=== PATIENT | female | born 1950 | race Caucasian/White ===

== ENCOUNTER → 2020-01-15 14:15 | Outpatient (CLI) | payer MEDICARE, OTHER, SELFPAY ==
--- NOTE | 2020-01-16 10:16 | PC.NURSE ---
Notified patient of positive covid results
== END ==
PROVIDERS: Visit Provider Nurse Practitioner Family
DX: Z20.828 Contact with and (suspected) exposure to other viral communicable diseases (principal); U07.1 COVID-19
CPT/HCPCS: U0003

== ENCOUNTER 2025-03-04 12:00 | Outpatient (CLI) | payer MEDICARE, SELFPAY ==
--- OUTSIDE RECORDS SUMMARY | 2024-08-05 04:20 | XMS_ITS ---
Author Organization [facility] e Address [address] [place] [address] Care Team Providers Care Crab Fisher Name Role Phone Amando Carlson Primary Care Provider Rex Urban Unavailable [phone] REASON FOR VISIT JORDON C7-T1 (Stop Xarelto x3 days) Encounters Encounter Location Date Provider Diagnosis [facility] [address] [place] [address] 08/05/2024 Rex Herbert Plan Of Treatment No Information Progress Notes * Emily WHITMAN MDOB: 1950 (74 yo F)Acc No.[id number]:08/05/2024 Procedure Note Patient: David riveraraffy Emily Osuna Provider: Jason Herbert M.D. :1950 A ge:73 Y S ex:Female Date:08/05/2024 Address:[address] [id number] Pcp:CHRIS Boyce Subjective: * Chief Complaints: * C BESS C7-T1 (Stop Xarelto x3 days) * Electronic signature of Zack Herbert MD on 03/16/2025 at 08:25 AM PST Sign off status: Pending * Provider: Jason Herbert M.D. Date: 0 08/05/2024 Generated for Kalen zambrano/Marilynn/Jose Manuel on: 1 08:25 AM PST
--- OUTSIDE RECORDS SUMMARY | 2024-12-15 19:00 | XMS_ITS | Continuity of Care Document ---
Author Organization [facility] Address [address] [place] [address] Phone Care Team Providers Care Leather Colorer Name Role Phone Shruthi Vishal Unavailable Unavailable Allergies, Adverse Reactions, Alerts Substance Reaction Status Criticality cephalexin itchingitching Active No Informatio n amoxicillin itchingitching Active No Informatio n shellfish derived itchingitching Active No Infor mation Medications Medication Instructions Dosage Effective Dates (start - stop) Status Comments Xarelto 2.5 mg tablet take 1 tablet by oral route 2 times every day 2.5 MG - Active sertraline 50 mg tablet take 1 tablet by oral route every day 50 MG - Active Synthroid 200 mcg tablet take 1 tablet by oral route every day 200 MCG - Active valsartan 320 mg tablet take 1 tablet by oral route every day 320 MG - Active zonisamide 100 mg capsule take 1 capsule by oral route 4 times every day 100 MG - Active Procedures Procedure Date [facility] MGMT STAFF [facility] C[facility] MGMT STAFF EA ADDL EP Compre Exam W Or Withou Ref REFRACTION [facility] CARE MGMT STAFF [facility] CARE MGMT STAFF [facility] MGMT STAFF EA ADDL REFRACTION Ophth Serv: Med Exam; Comp Est Feb-26-20 25 Refraction EP Compre Exam W Or Withou Ref 23 EP Compre Exam W Or Withou Ref 22 Ep Intermediate Exam EP Exam Level 2 Refraction Post Operative P O Visit Refraction Post Operative P O Visit P O Visit Cat/ Ex With Phaco With IOL Femto With Astig Toric [facility] Refraction Post Operative P O Visit P O Visit Cat/ Ex With Phaco With IOL Femto With Astig Toric [facility] Biometry Preop Paperwork Surgical PrePay [facility] Biometry Corneal Topography Preop Paperwork 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 [address], [place], [id number] , [place]. tel:[phone] Referring Provider: Vishal MARADIAGA, [address], [place], [address] . tel:[phone] [facility] , [address], [place], [id number], [place] tel:[phone] [facility] [place] No Information 5 Shruthi Bass. [address], [place] , [place], [id number] , [place]. tel: [phone] Referring Provider: Vishal MARADIAGA, [address], [place], [address] . tel:[phone] [facility] STAFF 1ST 30 [facility] , [address], [place], [place], [address], [place] tel:[phone] [facility] [place] No Information 5 Shruthi SKELTON Vishal. [address], [place] , [place], [id number] , [place]. tel: [phone] Referring Provider: Vishal MARADIAGA, [address], [place], [address] . tel:[phone] [facility] STAFF 1ST 30 [facility] , [address], [place], [place], [id number], [place] tel:[phone] [facility] [place] No Information 5 Shruthi Bass. [address], [place] , [place], [id number] , [place]. tel: [phone] Referring Provider: Vishal MARADIAGA, [address], [place], [address] . tel:[phone] [facility] , [address], [place], [place], [address], [place] tel:[phone] [facility] [place] No Information 5 Ellenkyree DO RodriguezVishal. [address], [place] , [place], [id number] , [place]. tel: [phone] Referring Provider: Vishal MARADIAGA, [address], [facility], [address] . tel:[phone] [facility] , [address], [place], [place], [id number], [place] tel:[phone] [facility] [place] floaters (chief complaint) Vitreous degeneration, bilateralOther corneal scars and opacities 3 Shruthi Bass. [address], [place] , [place], [id number] , [place]. tel:[phone] Referring Provider: Zaina Bess MD, [address], [place], [address] . tel:[phone] [facility] , [address], [facility] [place], [id number], [place] tel:[phone] [facility] h/o PVD OU (chief complaint) Vitreous degeneration, bilateralOther corneal scars and opacities 2 Shruthi Bass. [address], [place] , [place], [id number] , [place]. tel:[phone] Referring Provider: Vishal MARADIAGA, [address], [place], [address] . tel:[phone] [facility] , [address], [place], [place], [address], [place] tel:[phone] [facility] [place] Office redness and pain (chief complaint) Subconjunctival hemorrhage of left eyeVitreous degeneration, bilateralOther corneal scars and opacities 2 Shruthi Bass. [address], [place] , [place], [id number] , [place]. tel:[phone] Referring Provider: Vishal MARADIAGA, [address], [place], [place], [address] . tel:[phone] EP Exam Level 2 [facility] , [address], [place], [place], [id number], [place] tel:[phone] [facility] [place] Office small bump (chief complaint) Chalazion right lower eyelidVitreous degeneration, bilateral 1 Gassen OD Vidal. [address], [place] , [place], [id number] , [place]. tel:[phone] Referring Provider: Williancharlie Arikstacey OD, [address], [place], [place], [address] . tel:[phone] [facility] , [address], [place], [id number], [place] tel:[phone] [facility] [place] [facility] Post-Op (chief complaint) Presence of intraocular lensOther corneal scars and opacitiesVitreous degeneration, bilateral 1 Shruthi Bass. [address], [place] , [place], [id number] , [place]. tel:[phone] Referring Provider: Vishal MARADIAGA, [address], [place], [place], [address] . tel:[phone] sulting Provider: Vishal MARADIAGA, [address], [place], [place], [address] . tel:[phone] [facility] , [address], [place], [place], [id number], [place] tel:[phone] [facility] [place] [facility] CEIOL OD 07/27/20 (chief complaint) Presence of intraocular lens 1 Shruthi Bass. [address], [place], [id number] , [place]. tel:[phone] Referring Provider: Vishal MARADIAGA, [address], [place], [address] . tel:[phone] sulting Provider: Vishal MARADIAGA, [address], [place], [address] . tel:[phone] [facility] , [address], [place], [place], [address], [place] tel:[phone] [facility] [place] [facility] 1 day post op (chief complaint) Presence of intraocular lens 1 Shruthi Bass. [address], [place] , [place], [address] , [place]. tel:[phone] Referring Provider: Vishal MARADIAGA, [address], [place], [address] . tel:[phone] sulting Provider: Vishal MARADIAGA, [address], [place], [address] . tel:[phone] [facility] , [address], [place], [id number], [place] tel:[phone] [facility] [place] [facility] No Information 1 Shruthi Bass. [address], [place], [id number] , [place]. tel:[phone] Referring Provider: Vishal MARADIAGA, [address], [place], [address] . tel:[phone] sulting Provider: Vishal MARADIAGA, [address], [place], [address] . tel:[phone] [facility] , [address], [place], [place], [address], [place] tel:[phone] [facility] [place] No Information 1 Shruthi Bass. [address], [place] , [place], [address] , [place]. tel:[phone] Referring Provider: Vishal MARADIAGA, [address], [place], [address] . tel:[phone] [facility] , [address], [place], [place], [address], [place] tel:[phone] [facility] [place] [facility] 1 week PO (chief complaint) decreased vision (chief complaint) Presence of intraocular lensCombined forms of age-related cataract, right eye 1 Shruthi Bass. [address], [place], [id number] , [place]. tel:[phone] Referring Provider: Vishal MARADIAGA, [address], [place], [address] . [phone] sulting Provider: Vishal MARADIAGA, [address], [place], [address] . [phone] [facility] , [address], [place], [id number], [place] tel:[phone] [facility] [place] [facility] S/P CE W/ IOL (chief complaint) Presence of intraocular lens 1 Shruthi Bass. [address], [place], [id number] , [place]. tel:[phone] Referring Provider: Vishal MARADIAGA, [address], [place], [address] . tel: [phone] sulting Provider: Vishal MARADIAGA, [address], [place], [address] . [phone] [facility] , [address], [place], [place], [address], [place] tel:[phone] [facility] No Information 1 Shruthi Bass. [address], [place] , [place], [address] , [place]. tel: [phone] Referring Provider: Vishal MARADIAGA, [address], [place], [address] . tel: [phone] sulting Provider: Vishal MARADIAGA, [address], [place], [address] . [phone] [facility] , [address], [place], [place], [address], [place] tel:[phone] [facility] No Information 1 Shruthi Bass. [address], [place] , [place], [address] , [place]. tel: [phone] Referring Provider: Vishal MARADIAGA, [address], [place], [address] . tel:[phone] [facility] , [address], [place], [place], [address], [place] tel:[phone] [facility] [place] [facility] No Information 1 Shruthi Bass. [address], [place] , [place], [id number] , [place]. tel: [phone] Referring Provider: Vishal Neibaur DO W, [address], [place], [place], [address] . tel:[phone] [facility] , [address], [place], [place], [address], [place] tel:[phone] [facility] No Information 1 Shruthi Bass. [address], [place], [id number] , [place]. tel:[phone] Referring Provider: Vishal MARADIAGA, [address], [place], [address] . tel:[phone] [facility] , [address], [place], [place], [address], [place] tel:[phone] [facility] Office Combined forms of age-related cataract, bilateral May- 1 Shruthi Bass. [address], [place], [id number] , [place]. tel:[phone] Referring Provider: Vishal MARADIAGA, [address], [place], [address] . tel:[phone] [facility] , [address], [place], [id number], [place] tel:[phone] [facility] Office decreased vision (chief complaint) Combined forms of age-related cataract, bilateralVitreous degeneration, bilateralOther corneal scars and opacities May-0 1 Shruthi Bass. [address], [place], [id number] , [place]. tel:[phone] Referring Provider: Fidel Mattson OD [place], [address], [place], [address] . tel:[phone] Family History Family Member Type Diagnosis Age At Onset No Information Payers Payer name Insurance type Covered alliance party ID Frantz corral(s) [employer] Medicare MB [id number] Social History Type Description Quantity Date Captured Comments Sex Female Smoking Status No Information Chief Complaint And Reason For Visit No Information Reason For Referral Reason For Referral No Information Plan Of Treatment Date Type Action Status Goal Tobacco cessation counseling completed Appointment Emily Jeffrey BOOKED Appointment Emily Jeffrey BOOKED Patient Education Learning About Vitreous Detachment completed Patient Education Subconjunctiva l Hemorrhage: Care Instructions completed Patient Education Styes and Chal gloria: Care Instructions completed Patient Education Cataract Surge ry: Before Your Surgery completed Future Order: Radiology Order IO L Master ([id number]), Collected on: , Sent on: Sent History Of Present Illness Encounter Date Complaint History Of Prese nt Illness floaters The 72 year old patient presents for evaluation of floaters in the right eye and left eye. Started 4 months ago. Constant. C/o black dots at float around visual field. Denies any flashes, curtains or cobwebs. h/o PVD OU The 71 year old female presents for h/o PVD OU. Patient has noticed an increase in floaters (unsure which eye). Patient denies flashing lights. Denies curtain/veil effect. VA doing well for the most part. redness and pain The 70 year old female presents for evaluation of redness and pain in the left eye. Reports waking up with a red, bloodshot eye. Notes intermittent pain and stinging. No changes to vision. Onset was sudden, does not recall anything that might have caused it. No treatment attempted. small bump The patient has noticed small red bump RLL present since Sunday. The bump has drastically increased in size. It is overall painful, worsens when blinking. The bump is also in the way of vision in the right eye. The patient has tried warm compresses, NI. Has never had any bumps on lids prior. Not using any lubrication gtts or edmundo. Post-Op The 69 year old female presents for Post-Op in the right eye. 07/27/2020 S/P CE w/ IOL OD. VA OD improved since surgery. No drops. CEIOL OD 07/27/20 The 69 year ol d female presents for CEIOL OD 07/27/20; OS 07/13/20. Presents with improvement. Using Bromsite qd and Lotemax tid OU 1 day post op The 69 year old female presents for 1 day post op of CEIOL OD 07/27/20. Denies any pain or discomfort. Reports feeling and seeing something in temporal corner OD. Feels like thick fluid. Using Bromsite Qd, Ofloxacin and Prednisolone TID. Notes needing sample or alternative to Bromsite due to ins not covering refill til August 27. 1 week PO The 69 year old female presents for 1 week PO. S/P CE w/IOL OS 07/13/2020. Patient states no discomfort or pain; vision is good OS. Instilling Bromsite qd and Prednisolone tid os. decreased vision The patient is present for decreased vision in the right eye, constant, moderate, difficulty reading books, road signs, and tv. S/P CE W/ IOL The 69 year old female presents for evaluation of S/P CE W/ IOL in the left eye 07/13/20. Presents with some improvement in the vision. no pain, does feel discomfort. Using Bromsite qd, Ofloxacin tid, and Prednisolone tid OS. decreased vision The 69 year old female presents for evaluation of decreased vision in the right eye and left eye. It started about 3 month(s) ago. Presents with some blurry vision, making it difficult to see street signs when driving. Has to squint and focus to see better. Vision continues to gradually worsen. Functional Status Date Functional Assessmen t No Information Instructions Date Instruction Additional Infor yeni Return in [address] Hawkins for Refract/Dilate Related to Vitreous degeneration, bilateral Impression/Plan Related to Other corneal scars and opacities Impression/Plan Related to Vitre ous degeneration, bilateral Return in [address] Hawkins for Refract/Dilate Related to Vitreous degeneration, bilateral Impression/Plan Related to Other corneal scars and opacities Impression/Plan Related to Vitre ous degeneration, bilateral Return in August with Dr. Hawkins for Refract/Dilate Related to Vitreous degeneration, bilateral Impression/Plan Related to Other corneal scars and opacities Impression/Plan Related to Vitre ous degeneration, bilateral Impression/Plan Related to Subco njunctival hemorrhage of left eye RTC [address] Tawny leyva for refract/dilate Related to Vitreous degeneration, bilateral Impression/Plan Related to Vitre ous degeneration, bilateral Impression/Plan Related to Chala antonella right lower eyelid Return in [address] Hawkins for Refract/Dilate Related to Vitreous degeneration, bilateral Impression/Plan Related to Prese nce of intraocular lens Impression/Plan Related to Other corneal scars and opacities Impression/Plan Related to Vitre ous degeneration, bilateral Return in 3-[address] Hawkins for Post Op Refract No Dilate Related to Presence of intraocular lens Impression/Plan Related to Prese nce of intraocular lens Return in 1 week wit tayla Hawkins for Post Op Refract/Dilate. Related to Presence of intraocular lens Impression/Plan Related to Prese nce of intraocular lens Return for Surgery - Schedule Cataract Extraction with IOL [id number] OD with Vishal Hawkins DO Related to Combined forms of age-related cataract, right eye Impression/Plan Related to Combi fanny forms of age-related cataract, right eye Impression/Plan Related to Prese nce of intraocular lens Return in 1 week wit tayla Hawkins for Post Op Refract/Dilate. Related to Presence of intraocular lens Impression/Plan Related to Prese nce of intraocular lens - Schedule Cataract Extraction with IOL [id number] OU with Vishal Hawkins DO DO Related to Combined forms of age-related cataract, bilateral Impression/Plan Related to Other corneal scars and opacities Impression/Plan Related to Vitre ous degeneration, bilateral Impression/Plan Related to Combi fanny forms of age-related cataract, bilateral Assessments Type Assessment Date No Information Patient Care Teams Name Effective Dates (start - stop) Status Members No Information
--- OUTSIDE RECORDS SUMMARY | 2025-02-03 05:10 | XMS_ITS ---
Author Organization [facility] Address [address] [place] [address] Care Team Providers Care Poultry Offal Icer Name Role Phone Amando Carlson Primary Care Provider Rex Urban Unavailable [phone] Allergies Allergen (clinical drug ingredient) Drug/Non Drug Allergy documented on EMR Reaction Allergy Type Onset Date Status amoxicillin amoxicillin ReportDt: Severity:Mild Drug Allergy Active cephalexin cephalexin ReportDt: Severity:Mild Drug Allergy Active Shellfish (FN) Shellfish-derived Products Unknown Drug Allergy Active REASON FOR VISIT RFA RT HIP ABN, Hip ABN RFA, Hip Pain Medications Medication SIG (Take, Route, Frequency, Duration) Notes Start Date End Date Status Diclofenac Sodium 1 % Gel 1 application Externally Twice a day; Duration: 30 days apply 2-4grams externally Q6hrs for 30 days 12/10/2024 Active Lidocaine 5 % Patch 1-2 patches as needed Externally Once a day; Duration: 30 days 01/06/2025 Active Celecoxib 200 MG Capsule 1 capsule with food Orally Once a day; Duration: 90 days Active Lidocaine 5 % Patch 1 patch as needed Externally Once a day; Duration: 30 days 12/10/2024 Active Voltaren 1 % Gel as directed Externally twice a day; Duration: 30 days Please dispense 1 tube per month. TY 12/10/2024 Active Xarelto 2.5 MG Tablet 1 tablet Orally Twice a day; Duration: 30 day(s) 08/10/2023 Active Temazepam 15 MG Capsule TAKE 1 CAPSULE BY MOUTH EVERYDAY AT BEDTIME Oral; Duration: 30 Days Active Celecoxib 200 MG Capsule 1 capsule with food Orally Once a day; Duration: 90 days 07/23/2025 Active Lidocaine 5 % Patch Apply 1-3 patches TAA and remove after 12 hours Externally Once a day as needed; Duration: 30 days 08/10/2023 Active Zonisamide 100 MG Capsule TAKE 4 CAPSULES ONCE DAILY.; Duration: 90 Active Famotidine 40 MG Tablet Oral; Duration: 90 Days Active Ezetimibe 10 MG Tablet Oral; Duration: 90 Days Active Valsartan 320 MG Tablet Oral; Duration: 90 Days Active Chlorthalidone 25 MG Tablet Oral; Duration: 90 Days Active Atorvastatin Calcium 40 MG Tablet Oral; Duration: 90 Days Active Levothyroxine Sodium 50 MCG Tablet Oral; Duration: 90 Days Active traZODone HCl 50 MG Tablet TAKE 1 TABLET BY MOUTH EVERYDAY AT BEDTIME Oral; Duration: 90 Days Active Pantoprazole Sodium 40 MG Tablet Delayed Release 1 tablet Orally Once a day; Duration: 30 day(s) Active Social History Tobacco Use: Social History Observation Description Date Details (start date - stop date) Former Smoker NA - NA Social History Drugs/Alcohol: Social Info Question Answer Notes Drugs Have you used drugs other than those for medical reasons in the past 12 months? No Household: Social Info Question Answer Notes Household Marital status: Psychosocial/Psychological Social Info Question Answer Notes Work: Are you currently working? No Drug/Alcohol: Social Info Question Answer Notes AUDIT-C (Standard) Did you have a drink containing alcohol in the past year? No Points 0 Interpretation Negative Tobacco Use: Social Info Question Answer Notes Tobacco Control (Standard) Tobacco use: Former smoker How long has it been since you last smoked? Greater than 10 years Additional Findings: Tobacco non-user Current no nsmoker Tobacco use other than smoking: Are you an other tobacco user? No Additional Details Category Social Info Options Details Miscellaneous: Marital status: , w idowed Drugs/Alcohol: Do you smoke marijuana? De nies Do you drink alcohol? No Psychosocial/Psychological Live with: S pouse Do you take care of other family members (parent s, children): No Vital Signs Temperature 97.3 degrees Fahrenheit 02/04/20 25 Blood pressure systolic 104 mm Hg 02/04/20 25 Blood pressure diastolic 84 mm Hg 025 Respiratory Rate 16 /min 02/03/2025 Height 64 in 02/03/2025 Weight 225 lbs 02/03/2025 BMI 38.62 kg/m2 02/03/2025 Oximetry 90 % 02/03/2025 Encounters Encounter Location Date Provider Diagnosis [facility] [address] [place], [place] [address] 02/03/2025 Rex Herbert Spondylosis without myelopathy or radiculopathy, lumbar region M47.816 ; Primary osteoarthritis of right hip M16.11 ; Bilateral primary osteoarthritis of knee M17.0 ; Spondylosis without myelopathy or radiculopathy, cervical region M47.812 ; Unilateral primary osteoarthritis, right knee M17.11 ; Primary osteoarthritis of left knee M17.12 ; Cervical radiculopathy M54.12 ; Other muscle spasm M62.838 ; Muscle spasm of back M62.830 ; Left knee pain, unspecified chronicity M25.562 ; Spondylosis of lumbar region without myelopathy or radiculopathy M47.816 ; Radiculopathy, lumbar region M54.16 ; Primary osteoarthritis of left hip M16.12 ; Morbid (severe) obesity due to excess calories E66.01 ; Primary osteoarthritis, 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 ; Pain in right shoulder M25.511 ; Sacroiliitis, not elsewhere classified M46.1 ; Spinal stenosis, cervical region M48.02 ; Other intervertebral disc degeneration, lumbar region M51.36 ; Cervicalgia M54.2 ; Neuralgia and neuritis, unspecified M79.2 ; Pelvic and perineal pain R10.2 ; Left hip pain M25.552 ; Trochanteric bursitis, left hip M70.62 ; Spondylosis without myelopathy or radiculopathy, lumbosacral region M47.817 ; Right hip pain M25.551 ; 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 ; Thoracic spine pain M54.6 ; Primary osteoarthritis of right knee M17.11 ; Other buttermaker helper (current) drug therapy Z79.899 ; Anticoagulant long-term use Z79.01 and Pain in right knee M25.561 Assessments Encounter Date Diagnosis (ICD Code) Assessment Notes Treatment Notes Treatment Clinical Notes Section Notes 02/03/2025 Spondylosis without myelopathy or radiculopathy, lumbar region (ICD-10 - M47.816) 02/03/2025 Primary osteoarthritis of right hip (ICD-10 - M16.11) 02/03/2025 Bilateral primary osteoarthritis of knee (ICD-10 - M17.0) 02/03/2025 Spondylosis without myelopathy or radiculopathy, 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) 02/03/2025 Unilateral primary osteoarthritis, right knee (ICD-10 - M17.11) 02/03/2025 Primary osteoarthritis of left knee (ICD-10 - M17.12) 02/03/2025 Cervical radiculopathy (ICD-10 - M54.12) 02/03/2025 Other muscle spasm (ICD-10 - M62.838) 02/03/2025 Muscle spasm of back (ICD-10 - M62.830) 02/03/2025 Left knee pain, unspecified chronicity (ICD-10 - M25.562) 02/03/2025 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) 02/03/2025 Radiculopathy, lumbar region (ICD-10 - M54.16) 02/03/2025 Primary osteoarthritis of left hip (ICD-10 - M16.12) 02/03/2025 Morbid (severe) obesity due to excess calories (ICD-10 - E66.01) 02/03/2025 Primary osteoarthritis, 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) 02/03/2025 Pain in right shoulder (ICD-10 - M25.511) 02/03/2025 Sacroiliitis, not elsewhere classified (ICD-10 - M46.1) 02/03/2025 Spinal stenosis, cervical region (ICD-10 - M48.02) 02/03/2025 Other intervertebral disc degeneration, 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) 02/03/2025 Cervicalgia (ICD-10 - M54.2) 02/03/2025 Neuralgia and neuritis, unspecified (ICD-10 - M79.2) 02/03/2025 Pelvic and perineal pain (ICD-10 - R10.2) 02/03/2025 Left hip pain (ICD-10 - M25.552) 02/03/2025 Trochanteric bursitis, left hip (ICD-10 - M70.62) 02/03/2025 Spondylosis without myelopathy or radiculopathy, 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) 02/03/2025 Right hip pain (ICD-10 - M25.551) 02/03/2025 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) 02/03/2025 Thoracic spine pain (ICD-10 - M54.6) 02/03/2025 Primary osteoarthritis of right knee (ICD-10 - M17.11) 02/03/2025 Other senior care (current) drug therapy (ICD-10 - Z79.899) 02/03/2025 Anticoagulant long-term use (ICD-10 - Z79.01) Xarelto 02/03/2025 Pain in right knee (ICD-10 - M25.561) Plan Of Treatment No Information Procedure Notes * Category Sub-Category Detail Notes Procedure Pre Consent: Yes Pain Level VAS: 8 Last Meal (Date/Time): 02/02/2025 5 PM Last Pain Medication (Date/Time): 2024 NONE Diabetes: No Blood Thinner: No Test (40 years & younger): No Manager Financial Reporting: Yes Name: Cora ANESTHESIOLOGIST Anesthesia Provider: BOBBY The anesthesia provider was present during the entire case and administered intravenous medications and monitored the patients vitals.: . LOCATION Location: [facility] PROCEDURES Somatic Procedures: RFA RFA: Hip ABN RFA (FN/ON) Hip ABN RFA (FN/ON): FN First Position, FN Second Position Lateral, ON First Position, ON Second Position Lateral, Post Procedure, Side The risks and benefits of the procedure, and alternatives were discussed with the patient. The patient was agreeable to proceed. After informed consent, the patient was brought to the procedure suite and placed in the supine position. The hip and groin were prepped and draped in the usual sterile fashion. Under fluoroscopy guidance, the Femoral Head and the Acetabulum were identified. Using a curved Radiofrequency needle described below, with a 10 mm active tip, the Femoral Nerve Articular Branches were contacted on the Lateral Acetabulum superior to the hip joint's anterolateral border. After negative aspiration, the contrast was injected to confirm the needle position. Sensory stimulation was carried out at 50 Hz with the reproduction of the stated painful area, followed by motor stimulation at 2 Hz with increasing voltage to 4V. There was stimulation of the muscles in the hip region; however, there was no stimulation of the lower extremity. At this point, 1 cc of a solution described below was injected. After 30 seconds, the denervation was carried out under the lesion mode with lesioning at 90 seconds and a temperature of 85 degrees centigrade with the impedance of less than 250 Ohms.: . The needle was slightly withdrawn and redirected at a position more lateral to the original position. After negative aspiration, the contrast was injected to confirm the needle position. Sensory stimulation was carried out at 50 Hz with the reproduction of the stated painful area, followed by motor stimulation at 2 Hz with increasing voltage to 4V. There was stimulation of the muscles in the hip region; however, there was no stimulation of the lower extremity. At this point, 1 cc of a solution described below was injected. After 30 seconds, the denervation was carried out under the lesion mode with lesioning at 90 seconds and a temperature of 85 degrees centigrade with the impedance of less than 250 Ohms.: . The inferior junction of the Ischium-Pubis was identified under fluoroscopy guidance. Using a curved Radiofrequency needle described below, with a 10 mm active tip, the Obturator Nerve Articular Branches were contacted just inferior to the Ischium-Pubis junction. After negative aspiration, the contrast was injected to confirm the needle position. Sensory stimulation was carried out at 50 Hz with the reproduction of the stated painful area, followed by motor stimulation at 2 Hz with increasing voltage to 4V. There was stimulation of the muscles in the hip region; however, there was no stimulation of the lower extremity. At this point, 1 cc of a solution described below was injected. After 30 seconds, the denervation was carried out under the lesion mode with lesioning at 90 seconds and a temperature of 85 degrees centigrade with the impedance of less than 250 Ohms.: . The needle was slightly withdrawn and redirected at a position more lateral to the original position. After negative aspiration, the contrast was injected to confirm the needle position. Sensory stimulation was carried out at 50 Hz with the reproduction of the stated painful area, followed by motor stimulation at 2 Hz with increasing voltage to 4V. There was stimulation of the muscles in the hip region; however, there was no stimulation of the lower extremity. At this point, 1 cc of a solution described below was injected. After 30 seconds, the denervation was carried out under the lesion mode with lesioning at 90 seconds and a temperature of 85 degrees centigrade with the impedance of less than 250 Ohms.: . After completion of the lesion mode, the needle was removed. The sites were cleaned, and Band-Aids were placed. The patient tolerated the procedure well. There were no complications. The vitals were stable throughout.: . Side: Right TIME OUT TAKEN AND SITE VERIFIED 10:04 MEDICATIONS Versed (mg): 5 Fentanyl (mcg): 150 CONTRAST Ominpaque 240 (cc): 2 INJECTATE Bupivacaine 0.5% w/ Epi 1:200K ( cc): 9.5 STEROIDS Dexamethasone (mg): 15 TOTAL VOLUME Total Volume (cc): 12 NEEDLE Needle: 18G 100 mm RF 10 mm Acti ve Tip FLUOROSCOPY TIME Fluoroscopy Time: 0:48 Number of Images: 8 COMPLICATIONS Complications: None DISCHARGE (AVRIL SCORE) Respiration: Able to t frances Deep Breaths (2) Oxygen Saturation: >92% on Room Air (2) Consciousness: Fully Awake (2) Circulation: 20% of Pre-Anesthetic Level (2) Muscle Activity: Moves 4 Extremities (2) TOTAL AVRIL SCORE: 10 MA Initials (Discharge Instructions/Pain Log): MD ARMENDARIZ Initials (IV Removed): Time Out Procedure Protocol Verification by Surgeon & by: Verified by: Rex Gilman M.D., Josefina Vivas Dispersion/Grounding Pad Dispersion Pad: Site Location, Status of Site Site Location: Right Side Right Side: Mid Back Status of Site: Unremarkable History and Physical Notes * HPI (History of Present Illness) Category Sub-Category Detail Notes Category Not es PAIN MANAGEMENT Follow up plan documented Follow -up Plan documented:: Yes Progress Notes * Emily WHITMAN MDOB: 1950 (74 yo F)Acc No.[id number]:02/03/2025 Progress Notes Patient: David Emily fletcher Provider: Jason Herbert M.D. :1950 A ge:74 Y S ex:Female Date:02/03/2025 Address:[address] [place], [id number] Pcp:CHRIS Boyce Subjective: * Chief Complaints: * R FA RT HIP ABNHip ABN RFAHip Pain * HPI: P AIN MANAGEMENT: Follow up plan documented F ollow-up Plan documented: Y es * Surgical History: hysterectomy gallbladder removed open heart surgery tonsillectomy trigger finger release bilateral carpal tunnel release Surgical History verified. * Hospitalization/Major Diagno stic Procedure: RFA BL L2-L4 REPORTING 80-90% RELIEF X 6 MONTHS 04/2018 RFA RT C4-C6 WITH 80-90% RELIEF X 10 MONTHS 03/2018 RFA LT C4-C6 WITH 80%-90% RELIEF X 10 MONTHS 03/2018 RFA LT C4-C6 WITH 60% relief and increased adls x 2 years 02/2019 TFESI BL C5-C6, (C6-C7) , 70% ONGOING RELIEF 04/19 TFESI BL C5-C6.C6-C7 75% ongoing relief 03.17.20 RFA RT L3-L5 REPORTING 70-80% X 7 MONTHS 10/2018 RFA RT L3-L5 reporting 70% X 11 MONTHS AND INCREASED ADLS 04.21. RFA LT L3-L5 70% RELIEF X 6 MONTHS 09. RFA LT L3-L5 70% relief x 6 months and increased ADL's. 05.12.20 RIGHT HIP INJECTION 50% ongoing relief 07.10.20 RT HIP INJECTION 80% ONGOING RELIEF 07.28.20 RFA RT C4-C6 40% PAIN RELIEF AND INCREASED ADLS X 7 MONTHS 09.04.20 INTRA ARTICULAR JOIINT INJECTION 50-60% X 2 MONTHS AND IMPROVED ADLS 10.05.20 JORDON (C7-T1) reporting 80% ongoing relief and increased adls 02/2020 RFA LT L3-L5 70% relief and increased relief x 6 months 01.05. LT HIP INJECTION 70% ONGOING RELIEF AND INCREASED ADLS 04/2020 RFA RT L3-L5 70% relief and increased adls x 6 months 03.09.21 STEROID RT HIP 75% ongoing relief and increased adls 04.20.21 RFA RT C4-C6 60% ongoing relief and increased adls 05.07.21 RFA LT C4-C6 70% ongoing relief and increased adls 6.22.21 RFA LT L3-L5 80% ongoing relief and increased adls 09.21.21 RFA RT L3-L5 60% ongoing relief and increased adls 10.19.21 TFESI BL L4-L5, L5-S1 75% ongoing relief and increased 12.28.21 RFA LT C4-C6; 70% ongoing relief with increased ADL's 02.15.22 RFA RT C4-C6; 60% ongoing relief with increased ADL's 03.15.22 JORDON C7-T1 04.12.22 RIGHT HIP STEROID INJECTION - 60% relief ongoing with increased ADLs 05.10.22 RFA BL L3-L5 with increased ADLs x3 weeks, now 0% 6.03.22 TFESI BL L4-L5, L5-S1 75% relief with increased ADL's 07.26.22 JORDON C7-T1 60% relief x2 weeks now 0% 9.22.22 RFA BL C4-C6 75% relief ongoing with increased ADL's 10.25.22 RFA BL L3-L5 - 70% relief ongoing, increased ADLs 01.24.23 RT HIP INJECTION - 60% relief ongoing, increased ADLs 02.14.23 LT Knee Injection; 50% x 2 weeks relief from pain with increased ADLs 3.22.23 RFA BL C4-C6 with 70% pain relief with increased ADLs 05.05.23 JORDON C7-T1 with 80% relief 08.08.23 RT HIP INJECTION 75% on going relief and increased ADLs 09.15.23 LT Knee Injection with 50% relief and increased ADLs 10.11.23 RFA BL C4-C6 70% pain relief for two months WITH INCREASED ADLS 01.09.24 RFA BL L3-L5 70% ongoing pain relief with increased ADL's 03.05.24 Hyalgan #1 BL knee 04.04.24 Hyalgan #2 BL knee 04.10.24 Hyalgan #3 BL knee 04.18.24 Hyalgan #4 BL knee 04.23.24 Hyalgan #5 BL knee- 75% improvement of pain in right knee, 50% improvement in left knee 04.30.24? JORDON C7-T1 70% ongoing pain relief with increased ADL's 05.17.2023 RT HIP INJECTION 80% PAIN RELIEF FOR 3 DAYS WITH INCREASED ADL's 06.11.24 RFA BL C4-C6 70% ongoing pain relief with increased ADL's 08. RT HIP ABNB 80% pain relief with increased ADL's x2 days .. RFA ABN HIP RT 80% ongoing pain relief with increased ADL's 12.. RFA BL L3-L5 80% ongoing pain relief with increased ADLs 04.18. JORDON C7-T1 with 75% ongoing pain relief with increased ADL's 08.01.2024 RFA BL L3-5 70% ongoing pain relief with increased ADL's 10.07.24 RFA RT HIP ABN 02.03.25 Hospitalization Verified. * Social History: T obacco Use: T obacco use other than smoking A re you an other tobacco user? N o Tobacco Control (Standard) T obacco use: F ormer smoker H ow long has it been since you last smoked??Greater than 10 years A dditional Findings: Tobacco non-user C urrent nonsmoker D rugs/Alcohol: D rugs H ave you used drugs other than those for medical reasons in the past 12 months? N o Do you smoke marijuana?: Denies. Do you drink alcohol?: No. P sychosocial/Psychological: L conrado with: Spouse. Do you take care of other family members (parents, children): No. Work A re you currently working? N o M iscellaneous: M arital status: , . H ousehold: H ousehold M arital status: m arried D rug/Alcohol: A LEODAN-C (Standard) D id you have a drink containing alcohol in the past year? N o P oints 0 I nterpretation N egative S ocial History Verified. * Medications: T akingPantoprazole Sodium 40 MG Tablet Delayed Release 1 tablet Orally Once a day Levothyroxine Sodium 50 MCG Tablet Oral traZODone HCl 50 MG Tablet TAKE 1 TABLET BY MOUTH EVERYDAY AT BEDTIME Oral Chlorthalidone 25 MG Tablet Oral Atorvastatin Calcium 40 MG Tablet Oral Ezetimibe 10 MG Tablet Oral Valsartan 320 MG Tablet Oral Famotidine 40 MG Tablet Oral Temazepam 15 MG Capsule TAKE 1 CAPSULE BY MOUTH EVERYDAY AT BEDTIME Oral Xarelto 2.5 MG Tablet 1 tablet Orally Twice a day Lidocaine 5 % Patch Apply 1-3 patches TAA and remove after 12 hours Externally Once a day as needed Zonisamide 100 MG Capsule TAKE 4 CAPSULES ONCE DAILY. Celecoxib 200 MG Capsule 1 capsule with food Orally Once a day , stop date 07/23/2025Diclofenac Sodium 1 % Gel 1 application Externally Twice a day , Notes to Pharmacist: apply 2-4grams externally Q6hrs for 30 daysLidocaine 5 % Patch 1 patch as needed Externally Once a day Voltaren 1 % Gel as directed Externally twice a day , Notes to Pharmacist: Please dispense 1 tube per month. TYLidocaine 5 % Patch 1-2 patches as needed Externally Once a day Celecoxib 200 MG Capsule 1 capsule with food Orally Once a day Medication List reviewed and reconciled with the patientTaking Pantoprazole Sodium 40 MG Tablet Delayed Release 1 tablet Orally Once a day Taking Levothyroxine Sodium 50 MCG Tablet Oral Taking traZODone HCl 50 MG Tablet TAKE 1 TABLET BY MOUTH EVERYDAY AT BEDTIME Oral Taking Chlorthalidone 25 MG Tablet Oral Taking Atorvastatin Calcium 40 MG Tablet Oral Taking Ezetimibe 10 MG Tablet Oral Taking Valsartan 320 MG Tablet Oral Taking Famotidine 40 MG Tablet Oral Taking Temazepam 15 MG Capsule TAKE 1 CAPSULE BY MOUTH EVERYDAY AT BEDTIME Oral Taking Xarelto 2.5 MG Tablet 1 tablet Orally Twice a day Taking Lidocaine 5 % Patch Apply 1-3 patches TAA and remove after 12 hours Externally Once a day as needed Taking Zonisamide 100 MG Capsule TAKE 4 CAPSULES ONCE DAILY. Taking Celecoxib 200 MG Capsule 1 capsule with food Orally Once a day , stop date 07/23/2025Taking Diclofenac Sodium 1 % Gel 1 application Externally Twice a day , Notes to Pharmacist: apply 2-4grams externally Q6hrs for 30 daysTaking Lidocaine 5 % Patch 1 patch as needed Externally Once a day Taking Voltaren 1 % Gel as directed Externally twice a day , Notes to Pharmacist: Please dispense 1 tube per month. TYTaking Lidocaine 5 % Patch 1-2 patches as needed Externally Once a day Taking Celecoxib 200 MG Capsule 1 capsule with food Orally Once a day Medication List reviewed and reconciled with the patient * Allergies: a moxicillin: ReportDt:01/27/2016 Severity:Mildcephalexin: ReportDt:01/27/2016 Severity:MildShellfish-derived ProductsyesAllergies Verified. Objective: * Vitals: B P: 147/55 mm Hg,104/84mm Hg, RR: 16 /min,16/min, Temp: 97.1 F,97.3F, Pulse: 81, 71, Oxygen sat %: 96 %,90%, Pain scale:81-10, Pain Scale Discharge:51-10, Ht: 64 in, Wt:225lbs, BMI:38.62Index. Assessment: * Assessment: 1. P rimary osteoarthritis of right hip - M16.11 (Primary) 2 . S pondylosis without myelopathy or radiculopathy, lumbar region - M47.816 3 . B ilateral primary osteoarthritis of knee - M17.0 4 . S pondylosis without myelopathy or radiculopathy, cervical region - M47.812 5 . U nilateral primary osteoarthritis, right knee - M17.11 6 . P rimary osteoarthritis of left knee - M17.12 ?7. C ervical radiculopathy - M54.12 8 . O ther muscle spasm - M62.838 9. M uscle spasm of back - M62.830 1 0. L eft knee pain, unspecified chronicity - M25.562 1 1. S pondylosis of lumbar region without myelopathy or radiculopathy - M47.816 1 2. R adiculopathy, lumbar region - M54.16 & #160; 1 3. P rimary osteoarthritis of left hip - M16.12 1 4. M orbid (severe) obesity due to excess calories - E66.01 1 5. P rimary osteoarthritis, right shoulder - M19.011 1 6. P ain in right shoulder - M25.511 1 7. Sacroiliitis, not elsewhere classified - M46.1 1 8. S jane stenosis, cervical region - M48.02 1 9. O ther intervertebral disc degeneration, lumbar region - M51.36 2 0. C ervicalgia - M54.2 2 1. N euralgia and neuritis, unspecified - M79.2 2 2. P elvic and perineal pain - R10.2 2 3. L eft hip pain - M25.552 2 4. T rochanteric bursitis, left hip - M70.62? 25. S pondylosis without myelopathy or radiculopathy, lumbosacral region - M47.817 2 6. R ight hip pain - M25.551 2 7. S pondylosis of thoracic region without myelopathy or radiculopathy - M47.814 2 8. T horacic spine pain - M54.6 2 9. P rimary osteoarthritis of right knee - M17.11 30. O ther buttermaker helper (current) drug therapy - Z79.899 3 1. A nticoagulant long-term use - Z79.01 N otes :Xarelto 3 2. P ain in right knee - M25.561 Plan: * Procedures: P rocedure: Pre C onsent Y es P ain Level VAS 8 L ast Meal (Date/Time) 1 04/04/2024 5 PM L ast Pain Medication (Date/Time) 1 04/04/2024 NONE D iabetes N o B lood Thinner N o P regnancy Test (40 years & younger) N o D river Y es N aranza A hea ANESTHESIOLOGIST A nesthesia Provider M AC T he anesthesia provider was present during the entire case and administered intravenous medications and monitored the patients vitals. . LOCATION L ocation P [facility] [place] PROCEDURES S omatic Procedures R FA R FA H ip ABN RFA (FN/ON) H ip ABN RFA (FN/ON) F N First Position, FN Second Position Lateral, ON First Position, ON Second Position Lateral, Post Procedure, Side T he risks and benefits of the procedure, and alternatives were discussed with the patient. The patient was agreeable to proceed. After informed consent, the patient was brought to the procedure suite and placed in the supine position. The hip and groin were prepped and draped in the usual sterile fashion. Under fluoroscopy guidance, the Femoral Head and the Acetabulum were identified. Using a curved Radiofrequency needle described below, with a 10 mm active tip, the Femoral Nerve Articular Branches were contacted on the Lateral Acetabulum superior to the hip joint's anterolateral border. After negative aspiration, the contrast was injected to confirm the needle position. Sensory stimulation was carried out at 50 Hz with the reproduction of the stated painful area, followed by motor stimulation at 2 Hz with increasing voltage to 4V. There was stimulation of the muscles in the hip region; however, there was no stimulation of the lower extremity. At this point, 1 cc of a solution described below was injected. After 30 seconds, the denervation was carried out under the lesion mode with lesioning at 90 seconds and a temperature of 85 degrees centigrade with the impedance of less than 250 Ohms. . T he needle was slightly withdrawn and redirected at a position more lateral to the original position. After negative aspiration, the contrast was injected to confirm the needle position. Sensory stimulation was carried out at 50 Hz with the reproduction of the stated painful area, followed by motor stimulation at 2 Hz with increasing voltage to 4V. There was stimulation of the muscles in the hip region; however, there was no stimulation of the lower extremity. At this point, 1 cc of a solution described below was injected. After 30 seconds, the denervation was carried out under the lesion mode with lesioning at 90 seconds and a temperature of 85 degrees centigrade with the impedance of less than 250 Ohms. . T he inferior junction of the Ischium-Pubis was identified under fluoroscopy guidance. Using a curved Radiofrequency needle described below, with a 10 mm active tip, the Obturator Nerve Articular Branches were contacted just inferior to the Ischium- Pubis junction. After negative aspiration, the contrast was injected to confirm the needle position. Sensory stimulation was carried out at 50 Hz with the reproduction of the stated painful area, followed by motor stimulation at 2 Hz with increasing voltage to 4V. There was stimulation of the muscles in the hip region; however, there was no stimulation of the lower extremity. At this point, 1 cc of a solution described below was injected. After 30 seconds, the denervation was carried out under the lesion mode with lesioning at 90 seconds and a temperature of 85 degrees centigrade with the impedance of less than 250 Ohms. . T he needle was slightly withdrawn and redirected at a position more lateral to the original position. After negative aspiration, the contrast was injected to confirm the needle position. Sensory stimulation was carried out at 50 Hz with the reproduction of the stated painful area, followed by motor stimulation at 2 Hz with increasing voltage to 4V. There was stimulation of the muscles in the hip region; however, there was no stimulation of the lower extremity. At this point, 1 cc of a solution described below was injected. After 30 seconds, the denervation was carried out under the lesion mode with lesioning at 90 seconds and a temperature of 85 degrees centigrade with the impedance of less than 250 Ohms. . A fter completion of the lesion mode, the needle was removed. The sites were cleaned, and Band-Aids were placed. The patient tolerated the procedure well. There were no complications. The vitals were stable throughout. . S bernadette R ight TIME OUT TAKEN AND SITE VERIFIED 1 0:04. MEDICATIONS V ersed (mg) 5 F entanyl (mcg) 1 50 CONTRAST O minpaque 240 (cc) 2 INJECTATE B upivacaine 0.5% w/ Epi 1:200K (cc) 9 .5 STEROIDS D examethasone (mg) 1 5 TOTAL VOLUME T otal Volume (cc) 1 2 NEEDLE N eedle 1 8G 100 mm RF 10 mm Active Tip FLUOROSCOPY TIME F luoroscopy Time 0 :48 N umber of Images 8 COMPLICATIONS C omplications N one DISCHARGE (AVRIL SCORE) R espiration A ble to take Deep Breaths (2) O xygen Saturation > 92% on Room Air (2) C onsciousness F ully Awake (2) C irculation 2 0% of Pre-Anesthetic Level (2) M uscle Activity M oves 4 Extremities (2) T OTAL AVRIL SCORE 1 0 M A Initials (Discharge Instructions/Pain Log)?MD Enrrique Awad Initials (IV Removed) M D Time Out Procedure Protocol Verification by Surgeon & by: V erified by Rex Juárez M.D., Josefina Vivas Dispersion/Grounding Pad D ispersion Pad S ite Location, Status of Site S ite Location R ight Side R ight Side M id Back S tatus of Site U nremarkable * Procedure Codes: 6 4640 INJECTION TREATMENT OF NERVE, Modifiers: [place] [address] INJECTION TREATMENT OF NERVE, Modifiers: 51 , [id number] Dexamethasone 1 mg, Units: 15.00 J2250 Versed 1 mg, Units: 5.00 J3010 Injection, fentanyl Citrate, 0.1 mg, Units: 2.00 Q9967 LOCM 300- 399MG/ML IODINE,1ML * Preventive Medicine: Counseling: B P Management: REFERRAL TO ALTERNATIVE / PRIMARY CARE PROVIDER: R eferral to general practitioner C are goal follow-up plan: Above Normal BMI Follow-up D ietary management education, guidance, and counseling, Exercise promotion: stretching, Giving encouragement to exercise Billing Information: * Procedure Codes: 45960 INJECTION TREATMENT OF NERVE. Modifiers: [place] [address] INJECTION TREATMENT OF NERVE. Modifiers: 51, RT J1100 Dexamethasone 1 mg. Units: 15.00. J2250 Versed 1 mg. Units: 5.00. J3010 Injection, fentanyl Citrate, 0.1 mg. Units: 2.00. Q9967 LOCM 300-399MG/ML IODINE,1ML. * Sign off status: Completed true * Provider: Jason Herbert M.D. Date: 04/05/2024 Generated for Kalen zambrano/Marilynn/Jose Manuel on: 08:25 AM PST
--- OUTSIDE RECORDS SUMMARY | 2025-02-17 13:20 | XMS_ITS ---
Author Organization [employer] e Address [address] [place] [address] Care Team Providers Care Housing Management Representative Name Role Phone Amando Carlson Primary Care Provider Unavaila Rex Denson Unavailable [phone] Christel Vargas Unavailable [phone] Allergies Allergen (clinical drug ingredient) Drug/Non Drug Allergy documented on EMR Reaction Allergy Type Onset Date Status amoxicillin amoxicillin ReportDt: 016 Severity:Mild Drug Allergy Active cephalexin cephalexin ReportDt: 016 Severity:Mild Drug Allergy Active Shellfish (FN) Shellfish-derived Products Unknown Drug Allergy Active REASON FOR VISIT Neck Pain, Low Back, Right Hip Pain Medications Medication SIG (Take, Route, Frequency, Duration) Notes Start Date End Date Status Lidocaine 5 % Patch 1 patch as needed Externally Once a day; Duration: 30 days 12/10/2024 Active Diclofenac Sodium 1 % Gel 1 application Externally Twice a day; Duration: 30 days apply 2-4grams externally Q6hrs for 30 days 12/10/2024 Active Celecoxib 200 MG Capsule 1 capsule with food Orally Once a day; Duration: 90 days 07/23/2025 Active Lidocaine 5 % Patch Apply 1-3 patches TAA and remove after 12 hours Externally Once a day as needed; Duration: 30 days 08/10/2023 Active Xarelto 2.5 MG Tablet 1 tablet Orally Twice a day; Duration: 30 day(s) 08/10/2023 Active Atorvastatin Calcium 40 MG Tablet Oral; Duration: 90 Days Active Valsartan 320 MG Tablet Oral; Duration: 90 Days Active Ezetimibe 10 MG Tablet Oral; Duration: 90 Days Active Temazepam 15 MG Capsule TAKE 1 CAPSULE BY MOUTH EVERYDAY AT BEDTIME Oral; Duration: 30 Days Active Famotidine 40 MG Tablet Oral; Duration: 90 Days Active Chlorthalidone 25 MG Tablet Oral; Duration: 90 Days Active Levothyroxine Sodium 50 MCG Tablet Oral; Duration: 90 Days Active Pantoprazole Sodium 40 MG Tablet Delayed Release 1 tablet Orally Once a day; Duration: 30 day(s) Active traZODone HCl 50 MG Tablet TAKE 1 TABLET BY MOUTH EVERYDAY AT BEDTIME Oral; Duration: 90 Days Active Lidocaine 5 % Patch 1-2 patches as needed Externally Once a day; Duration: 30 days 02/11/2025 Active Voltaren 1 % Gel as directed Externally twice a day; Duration: 30 days Please dispense 1 tube per month. TY 12/10/2024 Active Celecoxib 200 MG Capsule 1 capsule with food Orally Once a day; Duration: 90 days Active Zonisamide 100 MG Capsule TAKE 4 CAPSULES ONCE DAILY Orally daily; Duration: 30 days 02/17/2025 06/17/2025 Active Social History Tobacco Use: Social History Observation Description Date Details (start date - stop date) Former Smoker 02/22/2005 - 02/25/2015 Social History Drugs/Alcohol: Social Info Question Answer [...] Tobacco Control (Standard) Tobacco use: Former smoker When did you start smoking? 02/22/2005 When did you stop smoking? 02/25/2015 How long has it been since you last smoked? Greater than 10 years Additional Findings: Tobacco non-user Ex-moderat e cigarette smoker (10-19/day) Tobacco use other than smoking: Are you an other tobacco user? No Additional Details Category Social Info Options Details Miscellaneous: Marital status: , w idowed Drugs/Alcohol: Do you smoke marijuana? De nies Do you drink alcohol? No Psychosocial/Psychological Live with: S pouse Do you take care of other family members (parent s, children): No Vital Signs Temperature 97.4 degrees Fahrenheit 02/18/20 25 Blood pressure systolic 134 mm Hg 02/18/20 25 Blood pressure diastolic 67 mm Hg 025 Respiratory Rate 16 /min 02/17/2025 Height 64 in 02/17/2025 Weight 224 lbs 02/17/2025 BMI 38.45 kg/m2 02/17/2025 Oximetry 94 % 02/17/2025 Encounters Encounter Location Date Provider Diagnosis [facility] [address] [place] [address] 02/17/2025 Christel Vargas Spondylosis without myelopathy or radiculopathy, lumbar region [...] osteoarthritis of right knee M17.11 ; Other terminal 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 The patient underwent RFA RT HIP ABN with 70% ongoing pain relief with increased ADL's done on 02.03.25. Today, the patient reports increased low back pain and describes the pain as persistent, rating it 7 out of 10, with episodes reaching 9out of 10 over the past few days, significantly affecting his daily comfort. We discussed performing an RFA BL L3-L5. Symptoms are interfering with ADLs, ROM, and the sleep cycle. The risks and benefits of the procedure were explained to the patient. The patient has agreed to proceed. Overall, the patient is able to reduce chronic pain with the current regimen, Zonisamide 400 mg #30, renewed unchanged. The patient is stable on the current regimen and tolerates medications without adverse effects. The patient will continue with routine follow-up. The patient voiced understanding. The patient was encouraged to stay active within pain limitations. The patient is not currently receiving opioid therapy. 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) 02/17/2025 Unilateral primary osteoarthritis, right knee (ICD-10 - M17.11) 02/17/2025 Primary osteoarthritis of left knee (ICD-10 - M17.12) 02/17/2025 Cervical radiculopathy (ICD-10 - M54.12) 02/17/2025 Other muscle spasm (ICD-10 - M62.838) 02/17/2025 Muscle spasm of back (ICD-10 - M62.830) 02/17/2025 Left knee pain, unspecified chronicity (ICD-10 - M25.562) 02/17/2025 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) 02/17/2025 Radiculopathy, lumbar region (ICD-10 - M54.16) 02/17/2025 Primary osteoarthritis of left hip (ICD-10 - M16.12) 02/17/2025 Morbid (severe) obesity due to excess calories (ICD-10 - E66.01) 02/17/2025 Primary osteoarthritis, 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) 02/17/2025 Pain in right shoulder (ICD-10 - M25.511) 02/17/2025 Sacroiliitis, not elsewhere classified (ICD-10 - M46.1) 02/17/2025 Spinal stenosis, cervical region (ICD-10 - M48.02) 02/17/2025 Other intervertebral disc degeneration, 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) 02/17/2025 Cervicalgia (ICD-10 - M54.2) 02/17/2025 Neuralgia and neuritis, unspecified (ICD-10 - M79.2) 02/17/2025 Pelvic and perineal pain (ICD-10 - R10.2) 02/17/2025 Left hip pain (ICD-10 - M25.552) 02/17/2025 Trochanteric bursitis, left hip (ICD-10 - M70.62) 02/17/2025 Spondylosis without myelopathy or radiculopathy, 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) 02/17/2025 Right hip pain (ICD-10 - M25.551) 02/17/2025 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 02/17/2025 Other alf (current) drug therapy (ICD-10 - Z79.899) 02/17/2025 Anticoagulant long-term use (ICD-10 - Z79.01) Xarelto 02/17/2025 Pain in right knee (ICD-10 - M25.561) 02/17/2025 Other The Control Substance Report (PMPR) was reviewed. Medication benefits, potential risks, and side effects were discussed in detail. Physical Activity: The patient was encouraged to stay active. Home Exercise: The patient is to continue a home exercise regimen. Opioid Side Effects: The patient was warned of side effects from opioid use including but not limited to nausea, constipation, drowsiness, dry mouth which can lead to tooth loss, and possible addiction. The patient should not operate heavy equipment or a motor vehicle. The patient should not mix alcohol or other drugs with opioids as these side effects will be enhanced. Plan Of Treatment Medication Medication Name Sig Start Date Stop Date Notes Lidocaine 5 % Patch 1-2 patches as neede d Externally Once a day; Duration: 30 days 02/11/2025 Zonisamide 100 MG Capsule TAKE 4 CAPSULE S ONCE DAILY Orally daily; Duration: 30 days 02/17/2025 06/17/2025 Treatment Notes Assessment Notes Spondylosis without myelopat hy or radiculopathy, lumbar region The patient RTC for a follow-up visit for ongoing low back pain, BL hip pain. The patient underwent RFA RT HIP ABN with 70% ongoing pain relief with increased ADL's done on 02.03.25. Today, the patient reports increased low back pain and describes the pain as persistent, rating it 7 out of 10, with episodes reaching 9out of 10 over the past few days, significantly affecting his daily comfort. We discussed performing an RFA BL L3-L5. Symptoms are interfering with ADLs, ROM, and the sleep cycle. The risks and benefits of the procedure were explained to the patient. The patient has agreed to proceed. Overall, the patient is able to reduce chronic pain with the current regimen, Zonisamide 400 mg #30, renewed unchanged. The patient is stable on the current regimen and tolerates medications without adverse effects. The patient will continue with routine follow-up. The patient voiced understanding. The patient was encouraged to stay active within pain limitations. The patient is not currently receiving opioid therapy. Other The Control Substance Report (PMPR) was reviewed. Medication benefits, potential risks, and side effects were discussed in detail. Physical Activity: The patient was encouraged to stay active. Home Exercise: The patient is to continue a home exercise regimen. Opioid Side Effects: The patient was warned of side effects from opioid use including but not limited to nausea, constipation, drowsiness, dry mouth which can lead to tooth loss, and possible addiction. The patient should not operate heavy equipment or a motor vehicle. The patient should not mix alcohol or other drugs with opioids as these side effects will be enhanced. Future Test Test Name Order Date RFA Lumbar 02/17/2025 Next Appt Details Follow Up: 2 Weeks, Reason: RFA BL L3-L5 History and Physical Notes * HPI (History of Present Illness) Category Sub-Category Detail Notes Category Not es Pain History The patient is compl aining of pain located in the low back, left hip, neck pain The pain began Onset: 2011 Under what circumstances did the pain begin? Acc ident at work: No Accident at home: No Following surgery: No At work. but not an accident: No Auto accident: No Following an illness: No Is the patient in litigation because of the pain or injury? no Expectations from the pain clinic [facility] pain relief Pain intensity Assessment Value: 7 Describes the usual level of pain Patient states :: Distressing/ Severe Description Describe your pain at its worst: 8 Describe your pain at its least: 6 Describe your pain on the average: 0 Quaility of Pain Characteristics of pain prickin g, gnawing, throbbing, sharp/ stabbing Aggravating factors other, walking, lift ing, bending Relieving factors medication, rest Lifestyle changes How much did pain in terfere with the following activities? 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 Psychological Support: NA Surgery: NA Nerve Blocks: Yes TENS/MENS: NA Physical Therapy: NA Occupational Therapy: NA Biofeedback/Relaxation Therapy: NA Medical History Have you ever had an y of the following medical conditions? General: None HEENT: None Cardiovascular: Hypertension Respiratory: Cough GI: None Blood: None : None Endocrine: None Infections: None Neuropsychiatry: None Musculoskeletal: Rheumatoid Arthiritis, Osteoarthiritis, Osteoporosis Neoplastic: None Psychosocial/Psychological Residence Status Do you live al one?: Yes How many steps do you have to climb?: 0 Do you take care of other family members (ie parents, children)?: No Do you have Caps, false teeth, or contac t lenses? No Are you currently working? No Tobacco/Drug/Alcohol Use Do you intake tobacco?: No Recreational drug use?: No Alcohol use?: No PAIN MANAGEMENT Follow up plan documented Follow-up Plan documented:: Yes Diagnostic Imaging Results CT Cervical Spine 06/04/2023 [facility] Findings: This exam is degraded by motion and attenuation artifact the inferior aspect of the cervical spine continuing into the drainage upper portion of the thoracic spine. There are no fractures or dislocations. The cervical spine is normal in alignment and curvature. There is moderate multilevel disc height loss from C3-4 through C7-Tl, accompanied by multilevel spondylotic changes through the cervical spinc. There is posterior disc osteophyte complex formation at multiple levels, including C4-5 and C5-6 where there is yphl-uh-yizjibes spinal canal stenosis, and at C6-7 where there is moderate spinal canal stenosis. There is multilevel uncovertebral and facet joint hypertrophy of the cervical spius resulting in moderate bilateral neural foraminal stenosis at C3-4, moderate right and mild left neural foraminal stenosis at C4-5, modcrate right and mild to moderate left noural foraminal stenosis at C5-6, and moderate right neural foraminal stenosis at C6-7. There is grossly normal mineralization. There are no osseous lytic or sclerotic lesions. There are normal paraspinal soft tissues. IMPRESSION: No acute osseous abnormality of the corvical spine. fultilevel degenerative changes of the cervical spine, with posterior disc osteophyte complexes al multiple levels resulting in whey-cr-qlkaelpt spinal canal stenosis al C4-5 and CS-6 and moderate spinal canal stenosis at C6-7. Multilevel neural foraminal stenosis as detailed above due to uncovertebral/facet joint hypertrophy. Examination Category Sub-Category Detail Notes Category Not es Thoracic Spine/Upper Back UPPER BACK EXAM: There is normal curvature of the thoracic spine. Full flexion, extension and lateral bending are noted. The spinous process are nontender to palpation and percussion. The paraspinal muscles are without tenderness, increased tone or appreciable trigger point Lumbar Spine/Lower back LOWER BACK: . The pa tient has tenderness along the lumbar spinous processes (approximately L1-L5) and lumbar paravertebral muscles. The pain is deeper. There is tenderness along the latissimus dorsi muscles and paravertebral muscles. There is bilateral lumbar facet tenderness and positive bilateral lumbar facet loading (approximately bilateral L3-L4 to L5-S1). The patient has a limited range of motion on lumbar spine flexion, extension, right and left lateral tilt secondary to pain. (BL Knee Reflex 1/4). Motor Strength diminished BL LE 4/5 and pain in the lumbar spine with movement.The patient is unable to get on the table secondary to pain. The patient is unable to lie flat on the table secondary to pain. Neurological GAIT AND STATION: slowed, stooped, using cane Right hip PALPATION: pain is deep, po sitive tenderness HIP RANGE OF MOTION: decreased range of motion secondary to pain General Examination GENERAL APPEARANCE: Pain Described as: : Severe Demeanor: calm HEAD: normocephalic , atra umatic EYES: extraocular movement intact (EOMI) EARS: NOSE: THROAT: NECK/THYROID: trachea midline HEART: regular rate and rhy thm CHEST: normal shape and exp ansion LUNGS: clear to auscultatio n bilaterally ABDOMEN: Obese NEUROLOGIC: alert and oriented, cognitive exam normal SKIN: warm and dry EXTREMITIES: no edema PERIPHERAL PULSES: 2+ radial BACK: BREASTS: MUSCULOSKELETAL: decreased range of m otion of left > right knee, crepitus of both knees, left > right medial knee tenderness, decreased range of motion cervical spine, painful range of motion of right hip, painful range of motion of left hip, greater trochanter tenderness of the right hip,, greater trochanter tenderness of the left hip LYMPH NODES: RECTAL: PSYCH: cooperative with exa m , good eye contact , mood/affect full range, speech clear ORAL CAVITY: PODIATRIC: Cervical Spine C SPINE EXAM: Cervical spine s hows straightening of spine, Limited ROM in all directions secondary to pain, Tenderness is noted on C7, Tenderness is noted on BL paracervical, trapezius, and rhomboid muscles with increased tone and palpable trigger points,Cervical facet loading is improved BL since RFA, , Full strength and reflexes of bilateral upper extremities REVIEWED ITEMS DATA REVIEWED Old Charts, PMPR , Previous Procedures, CT Scan Reports Progress Notes * Emily WHITMAN MDOB: 1950 (74 yo F)Acc No.[id number]:02/17/2025 Progress Notes Patient: Emily Maloney Appointment Provider: AMBAR Alejandro :1950 A ge:74 Y S ex:Female Supervising Provider:Aron Wilson M.D. Date:02/17/2025 Address:[address] [facility], [id number] Pcp:Amando Monroe, PAC Subjective: * Chief Complaints: * N zainab PainLow BackRight Hip Pain * HPI: P ain History: The pain began O nset 2 012 The patient is complaining of pain located in the l ow back, left hip, neck pain. Under what circumstances did the pain begin? A ccident at work N o A ccident at home N o F ollowing surgery N o A t work. but not an accident N o A uto accident N o F ollowing an illness N o Is the patient in litigation because of the pain or injury??no . Expectations from the pain clinic M y e xpectations?are pain relief. P ain intensity: Assessment V alue 7 Describes the usual level of pain P atient states: D istressing/ Severe Description D escribe your pain at its worst 8 D escribe your pain at its least 6 D escribe your pain on the average 0 Q uaility of Pain: Characteristics of pain p ricking, gnawing, throbbing, sharp/ stabbing. Aggravating factors o ther, walking, lifting, bending. Relieving factors m edication, rest. L ifestyle changes: How much did pain interfere with the following activities? 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 P sychological Support N A S urgery N A N erve Blocks Y es T ENS/MENS N A P hysical Therapy N A O ccupational Therapy N A B iofeedback/Relaxation Therapy N A P sychosocial/Psychological: Residence Status D o you live alone? Y es H ow many steps do you have to climb? 0 D o you take care of other family members (ie parents, children)? N o Do you have Caps, false teeth, or contact lenses? N o .? Are you currently working? N o . Tobacco/Drug/Alcohol Use D o you intake tobacco? N o R ecreational drug use? N o A lcohol use? N o M edical History: Have you ever had any of the following medical conditions? G eneral N one H EENT N one C ardiovascular H ypertension R espiratory C ough G I N one B lood N one G U N one E ndocrine N one I nfections N one N europsychiatry N one M usculoskeletal R heumatoid Arthiritis, Osteoarthiritis, Osteoporosis N eoplastic N one P AIN MANAGEMENT: Follow up plan documented F ollow-up Plan documented: Y preet D iagnostic Imaging Results: CT Cervical Spine06/04/2023 [facility]ings: This exam is degraded by motion and attenuation artifact the inferior aspect of the cervical spine continuing into the drainage upper portion of the thoracic spine. There are no fractures or dislocations. The cervical spine is normal in alignment and curvature. There is moderate multilevel disc height loss from C3-4 through C7- Tl, accompanied by multilevel spondylotic changes through the cervical spinc. There is posterior disc osteophyte complex formation at multiple levels, including C4-5 and C5-6 where there is ojau-xd-giwuyjsx spinal canal stenosis, and at C6-7 where there is moderate spinal canal stenosis. There is multilevel uncovertebral and facet joint hypertrophy of the cervical spius resulting in moderate bilateral neural foraminal stenosis at C3-4, moderate right and mild left neural foraminal stenosis at C4- 5, modcrate right and mild to moderate left noural foraminal stenosis at C5-6, and moderate right neural foraminal stenosis at C6-7. There is grossly normal mineralization. There are no osseous lytic or sclerotic lesions. There are normal paraspinal soft tissues. IMPRESSION: No acute osseous abnormality of the corvical spine. fultilevel degenerative changes of the cervical spine, with posterior disc osteophyte complexes al multiple levels resulting in wlku-yg-fjphqqbj spinal canal stenosis al C4-5 and CS-6 and moderate spinal canal stenosis at C6-7. Multilevel neural foraminal stenosis as detailed above due to uncovertebral/facet joint hypertrophy. * ROS: G ENERAL/CONSTITUTIONAL: Chills d enies. F atigue d enies. F ever d enies. E YES: Flashes of light in the visual field d enies. ? E NT: Vertigo D enies. D izziness D enies. ? E NDOCRINE: Diabetes d enies. T hyroid problems a dmits. ? R ESPIRATORY: TB exposure D enies. A sthma d enies. B reathing problems d enies. S hortness of breath d enies. S hortness of breath at rest d enies. S hortness of breath with exertion d enies. W heezing d enies. ? C ARDIOVASCULAR: Edema D enies. C hest pain d enies. C laudication d enies. H igh blood pressure d enies. P alpitations d enies. ? G ASTROINTESTINAL: Abdominal pain d enies. C onstipation d enies. D iarrhea d enies. H eartburn d enies. N ausea d enies. V omiting d enies. H EMATOLOGY: Anemia d enies. E asy bruising O n Xarelto. ? G ENITOURINARY: Flank pain D enies. K idney problems d enies. ? M USCULOSKELETAL: Neck Pain a dmits. L imitation of Motion a dmits.?low back pain d enies. m id back pain d enies. c ervical radiculopathy d enies. l umbar radiculopathy d enies. a rthritic joints k nee(s). P ain in hip(s) right hip. P ain in knee(s) b oth knees L>R. A rthritis a dmits. B ack problems d enies. H istory of Gout d enies. J oint stiffness a dmits, in the neck,in the extremities. M uscle aches a dmits. V ASCULAR: Decreased sensation in extremities d enies. P ain/cramping in legs after exertion d enies. S KIN: Hypersensitivity D enies. N EUROLOGICAL: Balance difficulty d enies. C oordination g ood.?Memory loss d enies. S eizures d enies. T ics d enies. T ingling/Numbness?denies. T remor d enies. P SYCHIATRIC: Difficulty sleeping a dmits. S ubstance abuse d enies. S uicidal thoughts d enies. * Medical History: Hypertension Rheumatoid arthritis Osteoporosis Hypothyroid Hyperlipidemia Insomnia GERD CAD Arthritis Chronic pain Medical History Verified * Surgical History: hysterectomy gallbladder removed open [...] 70% X 11 MONTHS AND INCREASED ADLS 04.21.20 RFA LT L3-L5 70% RELIEF X 6 MONTHS 09 RFA LT L3-L5 70% relief x 6 [...] relief and increased relief x 6 months 01.05.21 LT HIP INJECTION 70% ONGOING RELIEF AND [...] BL knee 04.18.24 Hyalgan #4 BL knee 07.10.23 Hyalgan #5 BL knee- 75% improvement of pain in right knee, 50% improvement in left knee 07.17.23? JORDON C7-T1 70% ongoing pain relief with increased ADL's 08.03.2023 RT HIP INJECTION 80% PAIN RELIEF FOR 3 DAYS WITH INCREASED ADL's 06 RFA BL C4-C6 70% ongoing pain relief with increased ADL's 08 RT HIP ABNB 80% pain relief with increased ADL's x2 days 12.28.23 RFA ABN HIP RT 80% ongoing pain relief with increased ADL's 02.19.24 RFA BL L3-L5 80% ongoing pain relief with increased ADLs 04.18.24 JORDON C7-T1 with 75% ongoing pain relief with increased ADL's 08.01.2024 RFA BL L3-5 70% ongoing pain relief with increased ADL's 10.07.24 RFA RT HIP ABN 70% ongoing pain relief with increased ADL's 02.03.25 Hospitalization Verified. * Family History: F ather: , diagnosed with Heart Disease. M other: , diagnosed with Diabetes. S iblings: diagnosed with Diabetes. F amily History Verified.. * Social History: T obacco Use: T obacco use other than smoking A re you an other tobacco user? N o Tobacco Control (Standard) T obacco use: F ormer smoker W hen did you start smoking? 1 04/25/2004 W hen did you stop smoking? 1 04/28/2014 H ow long has it been since you last smoked??Greater than 10 years A dditional Findings: Tobacco non-user E x-moderate cigarette smoker (10-19/day) D rugs/Alcohol: D rugs H ave you used drugs other than those for medical reasons in the past 12 months? N o Do you smoke marijuana?: Denies. Do you drink alcohol?: No. P sychosocial/Psychological: Vasile steene with: Spouse. Do you take care of [...] Severity:MildShellfish-derived ProductsyesAllergies Verified. Objective: * Vitals: B P:134/67mm Hg, RR:16/min, Temp:97.4F, Pulse: 71, Oxygen sat %:94%, Pain scale:71-10, Ht: 64 in, Wt:224lbs, BMI:38.45Index. * Examination: G eneral Examination: GENERAL APPEARANCE: ? Demeanor c ziggy ?HEAD:?normocephalic , atraumatic.?EYES:?extraocular movement intact (EOMI).?NECK/THYROID:?trachea midline.?SKIN:?warm and dry.?HEART:?regular rate and rhythm?.?LUNGS:?clear to auscultation bilaterally.?CHEST:?normal shape and expansion.?ABDOMEN:?Obese.?MUSCULOSKELETAL:?decreased range of motion of left > right knee, crepitus of both knees, left > right medial knee tenderness, decreased range of motion c ervical spine, painful range of motion of right hip, painful range of motion of left hip, greater trochanter tenderness of the right hip,, greater trochanter tenderness of the left hip.?EXTREMITIES:?no edema.?PERIPHERAL PULSES:?2+ radial.?NEUROLOGIC:?alert and oriented, cognitive exam normal. ?PSYCH:?cooperative with exam , good eye contact , mood/affect full range, speech clear.?Neurological: ?GAIT AND STATION:?slowed, stooped, using cane.?Cervical Spine: ?C SPINE EXAM:?Cervical spine shows straightening of spine,Limited ROM in all directions secondary to pain, Tenderness is noted on C7, Tenderness is noted on BL paracervical, trapezius, and rhomboid muscles with increased tone and palpable trigger points,Cervical facet loading is improved BL since RFA, , Full strength and reflexes of bilateral upper extremities.?Thoracic Spine/Upper Back: ?UPPER BACK EXAM:?There is normal curvature of the thoracicspine. Full flexion, extension and lateral bending are noted. The spinous process are nontender to palpation and percussion. The paraspinal muscles are without tenderness, increased tone or appreciable trigger point.?Lumbar Spine/Lower back: ?LOWER BACK:?. The patient has tenderness along the lumbar spinous processes (approximately L1-L5) and lumbar paravertebral muscles. The pain is deeper. There is tenderness along the latissimus dorsi muscles and paravertebral muscles. There is bilateral lumbar facet tenderness and positive bilateral lumbar facet loading (approximately bilateral L3-L4 to L5-S1). The patient has a limited range of motion on lumbar spine flexion, extension, right and left lat eral tilt secondary to pain. (BL Knee Reflex 1/4). Motor Strength diminished BL LE 4/5 and pain in the lumbar spine with movement.The patient is unable to get on the table secondary to pain. The patient is unable to lie flat on the table secondary to pain..?REVIEWED ITEMS: ?DATA REVIEWED?Old Charts, PMPR, Previous Procedures, CT Scan Reports.?Right hip: ?PALPATION:?pain is deep,positive tenderness?.?HIP RANGE OF MOTION:?decreased range of motion secondary to pain.? Assessment: * Assessment: 1. S pondylosis without myelopathy or radiculopathy, lumbar region - M47.816 (Primary) ? 2 . P rimary osteoarthritis of right hip - M16.11 3 . B ilateral primary osteoarthritis of [...] right knee - M17.11 30. 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 A nticoagulant long-term use - Z79.01 N otes :Xarelto 3 2. P ain in right knee - M25.561 Plan: * Treatment: Notes: The patient RTC for a follow-up visit for ongoing low back pain, BL hip pain. The patient underwent? RFA RT HIP ABN with 70% ongoing pain relief with increased ADL's done on?02.03.25. Today, the patient reports increased low back pain and describes the pain as persistent, rating it7 out of 10, with episodes reaching 9out of 10 over the past few days, significantly affecting his daily comfort. We discussed performing an RFA BL L3-L5. Symptoms are interfering with ADLs, ROM, andthe sleep cycle. The risks and benefits of the procedure were explained to the patient. The patienthas agreed to proceed.? Overall, the patient is able to reduce chronic pain with the current regimen, Zonisamide 400 mg #30, renewed unchanged. The patient is stable on the current regimen and tolerates medications without adverse effects. The patient will continue with routine follow-up. The patient voiced understanding.The patient was encouraged to stay active within pain limitations.? The patient is not currently receiving opioid therapy. ?? Clinical Notes:Treatment Plan: -Continue Zonisamide 400 mg #30 -The patient is not currently receiving opioid therapy -RFA BL L3-L5 -Follow up in 2 weeks???2.?Primary osteoarthritis of right hip? Refill Zonisamide Capsule, 100 MG, TAKE 4 CAPSULES ONCE DAILY, Orally, daily, 30 days, 120, Refills3.??3.?Neuralgia and neuritis, unspecified? Refill Lidocaine Patch, 5 %, 1-2 patches as needed, Externally, Once a day, 30 days, 60, Refills 11.??4.?Primary osteoarthritis of right knee? Clinical Notes: XR RT Knee Impression: Marked Degenerative change.??5.?Others? Notes: The Control Substance Report (PMPR) was reviewed. Medication benefits, potential risks, and side effects were discussed in detail. Physical Activity: The patient was encouraged to stay active. Home Exercise: The patient is to continue a home exercise regimen. Opioid Side Effects: The patient was warned of side effects from opioid use including but not limited to nausea, constipation, drowsiness, dry mouth which can lead to tooth loss, and possible addiction. The patient should not operate heavy equipment or a motor vehicle. The patient should not mix alcohol or other drugs with opioids as these side effects will be enhanced.?? * Preventive Medicine: Counseling: C are goal follow-up plan: Above Normal BMI Follow-up D ietary management education, guidance, and counseling, Exercise promotion: stretching, Giving encouragement to exercise Screenings: F ALL RISK SCREENING Screening: O ne fall with injury in the past year Plan of Care: D ocumented Type of fall plan of care: B alance, strength and gait training or instruction provided * Follow Up: 2 Weeks (Reason: RFA BL L3-L5) Billing Information: * Visit Code: 42414 Office Visit, Est Pt., Level 4. * Procedure Codes: Confirmatory sign off:Aron Wilson 02/18/2025 at 01:34 AM PST* Electronically co-signed by Aron Wilson MD on 02/18/2025 at 01:34 AM PST Sign off status: Completed true * Appointment Provider: AMBAR Alejandro Date: 04/20/2024 Generated for Kalen zambrano/Marilynn/Jose Manuel on: 08:25 AM PST
--- OUTSIDE RECORDS SUMMARY | 2025-03-16 11:25 | XMS_ITS | Data Portability ---
Author Organization [facility] IP Address [address] [place] [address] Care Team Providers Care Plumbing Service Technician Name Role Phone SHIRA PEÑA Primary Care Provider Assessment No assessment recorded. Plan of Treatment Reminders Order Date Submit Date Provider Last Modified By Organization Details Last Modified Time Details Appointments FOLLOW UP 2025 08:00A Enrrique Wolfe MD Not available Not available Not available Lab urinalysi s, complete 2024 025 [facility], [address], [place], [address], 02/02/2025 11:27:28 microalbu min/creat inine, mass ratio, urine 2024 025 [facility], [address], [place], [address], 02/02/2025 11:27:27 lipid panel, serum 2024 025 [facility], [address], [place], [address], 02/02/2025 11:27:28 lipoprote in (A), serum 2024 025 [facility], [address], [place], [address], 02/02/2025 11:27:29 CRP, high sensitivi ty, serum or plasma 2024 025 [facility], [address], [place], [address], 02/02/2025 11:27:26 CMP, serum or plasma 2024 025 [facility], [address], [place], [address], 02/02/2025 11:27:26 CBC w/ auto diff 2024 025 [facility], [address], [place], [address], 02/02/2025 11:27:25 unlisted lab - iron, TIBC and ferritin panel 2024 025 [facility], [address], [place], [address], 02/02/2025 11:27:29 TSH + free T4, serum 2024 025 [facility], [address], [place], [address], 02/02/2025 11:27:25 HbA1c (hemoglob in A1c), blood 2024 025 [facility], [address], [place], [address], 02/02/2025 11:27:27 urinalysi s, complete 2024 025 [facility], [address], [place], [address], 08/04/2024 11:39:18 microalbu min/creat inine, mass ratio, urine 2024 025 [facility], [address], [place], [address], 08/04/2024 11:39:16 lipid panel, serum 2024 025 [facility], [address], [place], [address], 08/04/2024 11:39:13 lipoprote in (A), serum 2024 025 [facility], [address], [place], [address], 08/04/2024 11:39:14 CRP, high sensitivi ty, serum or plasma 2024 025 [facility], [address], [place], [address], 08/04/2024 11:39:14 CMP, serum or plasma 2024 025 [facility], [address], [place], [address], 08/04/2024 11:39:17 CBC w/ auto diff 2024 025 [facility], [address], [place], [address], 08/04/2024 11:39:16 unlisted lab - iron, TIBC and ferritin panel 2024 025 [facility], [address], [place], [address], 08/04/2024 11:39:12 TSH + free T4, serum 2024 025 [facility], [address], [place], [address], 08/04/2024 11:39:15 HbA1c (hemoglob in A1c), blood 2024 025 [facility], [address], [place], [address], 08/04/2024 11:39:17 urinalysi s, complete 2024 025 [facility], [address], [place], [address], 07/30/2024 19:46:41 microalbu min/creat inine, mass ratio, urine 2024 025 [facility], [address], [place], [address], 07/30/2024 19:46:40 lipid panel, serum 2024 025 [facility], [address], [place], [address], 07/30/2024 19:46:38 lipoprote in (A), serum 2024 025 [facility], [address], [place], [address], 07/30/2024 19:46:39 CRP, high sensitivi ty, serum or plasma 2024 025 [facility], [address], [place], [address], 07/30/2024 19:46:42 CMP, serum or plasma 2024 025 [facility], [address], [place], [address], 07/30/2024 19:46:40 CBC w/ auto diff 2024 025 [facility], [address], [place], [address], 07/30/2024 19:46:42 unlisted lab - iron, TIBC and ferritin panel 2024 025 [facility], [address], [place], [address], 07/30/2024 19:46:38 TSH + free T4, serum 2024 025 [facility], [address], [place], [address], 07/30/2024 19:46:43 HbA1c (hemoglob in A1c), blood [address] [facility], [address], [place], [address], 07/30/2024 19:46:43 urinalysi s, complete 2023 024 [facility], [address], [place], [address], 02/04/2024 14:23:57 microalbu min/creat inine, mass ratio, urine [address] [facility], [address], [place], [address], 02/04/2024 14:23:57 lipid panel, serum 2023 024 [email or web address], [address], [place], [address], 02/04/2024 14:23:56 lipoprote in (A), serum 2023 024 [facility], [address], [place], [address], 02/04/2024 14:23:57 CRP, high sensitivi ty, serum or plasma 2023 [facility], [address], [place], [address], 02/04/2024 14:23:57 CMP, serum or plasma 2023 024 [email or web address], [address], [place], [address], 02/04/2024 14:23:57 CBC w/ auto diff 2023 024 [facility], [address], [place], [address], 02/04/2024 14:23:57 unlisted lab - iron, TIBC and ferritin panel 2023 [facility], [address], [place], [address], 02/04/2024 14:23:57 TSH + free T4, serum 2023 024 [facility], [address], [place], [address], 02/04/2024 14:23:57 HbA1c (hemoglob in A1c), blood 2023 024 [facility], [address], [place], [address], 02/04/2024 14:23:57 Referral None recorded. Procedures None recorded. Surgeries None recorded. Imaging electroca rdiogram 2024 025 [facility], [address], [place], [address], 02/02/2025 11:52:32 Medication Orders None recorded. Patient TargetsNo targets recorded. Patient Instructions Encounter Date Encounter Id Patient Instructions Last Modified By Organization Details Last Modified Time 02/04/2024 [id number] HTN, HLD, preDM, hypothyroidism, CKD, and CAD/CM - stable Stopped metformin, colchicine, torsemide and potassium RPM for HTN Entresto too expensive GLP-1s too expensive Give generic rivaroxaban and dapagliflozin Son of unvaccinated COVID [email or web address] Not available 02/04/2024 14:21:45 05/12/2024 [id number] HTN, HLD, preDM, hypothyroidism, CKD, and CAD/CM - stable Stopped metformin, colchicine, torsemide and potassium RPM for HTN Entresto too expensive GLP-1s too expensive Give generic rivaroxaban and dapagliflozin Son of unvaccinated COVID Ok for belly button surgery [email or web address] Not available 05/12/2024 18:06:49 08/04/2024 [id number] HTN, HLD, preDM, hypothyroidism, CKD, and CAD/CM - stable Stopped metformin, colchicine, torsemide and potassium Entresto too expensive GLP-1s too expensive Give generic rivaroxaban and dapagliflozin Son of unvaccinated COVID [email or web address] Not available 08/04/2024 11:38:05 02/02/2025 [id number] HTN, HLD, preDM, hypothyroidism, CKD, and CAD/CM - stable Stopped metformin, colchicine, torsemide and potassium Add digoxin Does not want to change to Entresto even though generic because valsartan even cheaper GLP-1s too expensive Give SGLT2i samples as drug tariffs increased mcguire of dapagliflozin OK for eye surgery Son of unvaccinated COVID [email or web address] Not available 02/02/2025 11:26:32 Reason for Referral None Reported. Results Created Date Observation Date Name Description Value Unit Range Abnormal Flag Note LastModifiedBy Organization Detail LastModifiedTime 01/29/2001/30/2024 CMP14 +EGFR glucose 78 mg/dL 70-99 normal Not Available [facility] ([facility]) [address] [facility], [place], [address], 02/05/2024 19:07:51 01/29/20 24 01/30/2024 CMP14 +EGFR BUN 26 mg/dL 8-27 normal Not Available [facility] ([facility]) [address] [facility], [place], [address], 02/05/2024 19:07:51 01/29/20 24 01/30/2024 CMP14 +EGFR creatinine 1.09 mg/dL 0.57-1 .00 above high normal Not Available [facility] ([facility]) [address] [facility], [place], [address], 02/05/2024 19:07:51 01/29/20 24 01/30/2024 CMP14 +EGFR eGFR 53 mL/mi n/1.7 3 >59 below low normal Not Available [facility] ([facility]) [address] [facility], [place], [address], 02/05/2024 19:07:51 01/29/20 24 01/30/2024 CMP14 +EGFR BUN/creatini ne ratio 11 03- normal Not Available [facility]) [address] [facility], [place], [address], 02/05/2024 19:07:51 01/29/20 24 01/30/2024 CMP14 +EGFR sodium 143 mmol/ L 134-14 4 normal Not Available [facility] ([facility]) [address] [facility], [place], [address], 02/05/2024 19:07:51 01/29/20 24 01/30/2024 CMP14 +EGFR potassium 4.6 mmol/ L 3.5-5. 2 normal Not Available [facility] ([facility]) [address] [place], [address], 02/05/2024 19:07:51 01/29/20 24 01/30/2024 CMP14 +EGFR chloride 107 mmol/ L 96-106 above high normal Not Available [facility] ([facility]) [address] [place], [address], 02/05/2024 19:07:51 11/12/01/30/2024 CMP14 +EGFR carbon dioxide, total 18 mmol/ L 20-29 below low normal Not Available [facility] ([facility]) [address] [place], [address], 02/05/2024 19:07:51 01/29/20 24 01/30/2024 CMP14 +EGFR calcium 9.7 mg/dL 8.7-10 .3 normal Not Available [facility] ([facility]) [address] [place], [address], 02/05/2024 19:07:51 01/29/2001/30/2024 CMP14 +EGFR protein, total 6.8 g/dL 6.0-8. 5 normal Not Available [facility] ([facility]) [address] [place], [address], 02/05/2024 19:07:51 01/29/2001/30/2024 CMP14 +EGFR albumin 4.4 g/dL 3.8-4. 8 normal Not Available [facility] ([facility]) [address] [place], [address], 02/05/2024 19:07:51 01/29/20 24 01/30/2024 CMP14 +EGFR globulin, total 2.4 g/dL 1.5-4. 5 Not Available [facility] ([facility]) [address] [place], [address], 02/05/2024 19:07:51 01/29/20 24 01/30/2024 CMP14 +EGFR bilirubin, total 0.5 mg/dL 0.0-1. 2 normal Not Available [facility] ([facility]) [address] [place], [address], 02/05/2024 19:07:51 01/29/20 24 01/30/2024 CMP14 +EGFR alkaline phosphatase 181 IU/L 44-121 above high normal Not Available [facility] ([facility]) [address] [facility] [place], [address], 02/05/2024 19:07:51 01/29/20 24 01/30/2024 CMP14 +EGFR AST (SGOT) 18 IU/L 0-40 normal Not Available [facility] ([facility]) [address] [place], [address], 02/05/2024 19:07:51 01/29/20 24 01/30/2024 CMP14 +EGFR ALT (SGPT) 15 IU/L 0-32 normal Not Available [facility] ([facility]) [address] [place], [address], 02/05/2024 19:07:51 01/29/20 24 01/30/2024 FE+TI BC+FE R iron bind.cap.(TI BC) 341 ug/dL 250-45 0 normal Not Available [facility] ([facility]) [address] [place], [address], 02/05/2024 19:07:52 01/29/20 24 01/30/2024 FE+TI BC+FE R UIBC 275 ug/dL 118-36 9 normal Not Available [facility] ([facility]) [address] [facility], [place], [address], 02/05/2024 19:07:52 01/29/20 24 01/30/2024 FE+TI BC+FE R iron 66 ug/dL 27-139 normal Not Available [facility] ([facility]) [address] [place], [address], 02/05/2024 19:07:52 01/29/20 24 01/30/2024 FE+TI BC+FE R iron saturation 19 % 15-55 normal Not Available [facility]) [address] [place], [address], 02/05/2024 19:07:52 01/29/20 24 01/30/2024 FE+TI BC+FE R ferritin 58 NG/mL 15-150 normal Not Available [facility] ([facility]) [address] [place], [address], 02/05/2024 19:07:52 01/29/20 24 01/30/2024 TSH+F REE T4 TSH 0.184 uIU/m L 0.450- 4.500 below low normal Not Available [facility] ([facility]) [address] [place], [address], 02/05/2024 19:07:52 01/29/20 24 01/30/2024 TSH+F REE T4 T4,free(dire ct) 1.56 NG/dL 0.82-1 .77 normal Not Available [facility] ([facility]) [address] [place], [address], 02/05/2024 19:07:52 01/29/20 24 01/30/2024 CBC WITH DIFFE RENTI AL/PL ATELE T WBC 5.7 x10e3 /uL 3.4-10 .8 normal Eff ectiv e Decem michelle 2023 profi maria luz [id number] 5 WBC will be made* * non-o rdera ble as a stand -dominique e order code. Not Available [facility] ([facility]) [address] [place], [address], 02/05/2024 19:07:53 01/29/20 24 01/30/2024 CBC WITH DIFFE RENTI AL/PL ATELE T RBC 4.84 x10e6 /uL 3.77-5 .28 normal Not Available [facility] ([facility]) [address] [place], [address], 02/05/2024 19:07:53 01/29/20 24 01/30/2024 CBC WITH DIFFE RENTI AL/PL ATELE T hemoglobin 13.9 g/dL 11.1-1 5.9 normal Not Available [facility] ([facility]) [address] [place], [address], 02/05/2024 19:07:53 01/29/20 24 01/30/2024 CBC WITH DIFFE RENTI AL/PL ATELE T hematocrit 44.2 % 34.0-4 6.6 normal Not Available [facility] ([facility]) [address] [place], [address], 02/05/2024 19:07:53 01/29/20 24 01/30/2024 CBC WITH DIFFE RENTI AL/PL ATELE T MCV 91 fL 79-97 normal Not Available [facility] ([facility]) [address] [place], [address], 02/05/2024 19:07:53 01/29/20 24 01/30/2024 CBC WITH DIFFE RENTI AL/PL ATELE T MCH 28.7 pg 26.6-3 3.0 normal Not Available [facility] ([facility]) [address] [place], [address], 02/05/2024 19:07:53 01/29/20 24 01/30/2024 CBC WITH DIFFE RENTI AL/PL ATELE T MCHC 31.4 g/dL 31.5-3 5.7 below low normal Not Available [facility] ([facility]) [address] [place], [address], 02/05/2024 19:07:53 01/29/20 24 01/30/2024 CBC WITH DIFFE RENTI AL/PL ATELE T RDW 12.5 % 11.7-1 5.4 Not Available [facility] ([facility]) [address] [place], [address], 02/05/2024 19:07:53 01/29/20 24 01/30/2024 CBC WITH DIFFE RENTI AL/PL ATELE T platelets 225 x10e3 /uL 150-45 0 normal Not Available [facility] ([facility]) [address] [place], [address], 02/05/2024 19:07:53 01/29/20 24 01/30/2024 CBC WITH DIFFE RENTI AL/PL ATELE T neutrophils 60 % not estab. normal Not Available [facility] ([facility]) [address] [facility], [place], [address], 02/05/2024 19:07:53 01/29/20 24 01/30/2024 CBC WITH DIFFE RENTI AL/PL ATELE T lymphs 26 % not estab. normal Not Available [facility] ([facility]) [address] [facility], [place], [address], 02/05/2024 19:07:53 01/29/20 24 01/30/2024 CBC WITH DIFFE RENTI AL/PL ATELE T monocytes 10 % not estab. normal Not Available [facility] ([facility]) [address] [facility], [place], [address], 02/05/2024 19:07:53 01/29/20 24 01/30/2024 CBC WITH DIFFE RENTI AL/PL ATELE T eos 3 % not estab. normal Not Available [facility] ([facility]) [address] [facility], [place], [address], 02/05/2024 19:07:53 01/29/20 24 01/30/2024 CBC WITH DIFFE RENTI AL/PL ATELE T basos 1 % not estab. normal Not Available [facility] ([facility]) [address] [facility], [place], [address], 02/05/2024 19:07:53 01/29/20 24 01/30/2024 CBC WITH DIFFE RENTI AL/PL ATELE T immature cells HOOF TRIMMER Not Available [facility] ([facility]) [address] [facility], [place], [address], 02/05/2024 19:07:53 01/29/20 24 01/30/2024 CBC WITH DIFFE RENTI AL/PL ATELE T neutrophils (absolute) 3.4 x10e3 /uL 1.4-7. 0 normal Not Available [facility] ([facility]) [address] [place], [address], 02/05/2024 19:07:53 01/29/20 24 01/30/2024 CBC WITH DIFFE RENTI AL/PL ATELE T lymphs (absolute) 1.5 x10e3 /uL 0.7-3. 1 normal Not Available [facility] ([facility]) [address] [place], [address], 02/05/2024 19:07:53 01/29/20 24 01/30/2024 CBC WITH DIFFE RENTI AL/PL ATELE T monocytes(ab solute) 0.6 x10e3 /uL 0.1-0. 9 normal Not Available [facility] ([facility]) [address] [place], [address], 02/05/2024 19:07:53 01/29/20 24 01/30/2024 CBC WITH DIFFE RENTI AL/PL ATELE T eos (absolute) 0.2 x10e3 /uL 0.0-0. 4 normal Not Available [facility] ([facility]) [address] [place], [address], 02/05/2024 19:07:53 01/29/20 24 01/30/2024 CBC WITH DIFFE RENTI AL/PL ATELE T baso (absolute) 0.1 x10e3 /uL 0.0-0. 2 normal Not Available [facility] ([facility]) [address] [place], [address], 02/05/2024 19:07:53 01/29/20 24 01/30/2024 CBC WITH DIFFE RENTI AL/PL ATELE T immature granulocytes 0 % not estab. Not Available [facility] ([facility]) [address] [place], [address], 02/05/2024 19:07:53 01/29/20 24 01/30/2024 CBC WITH DIFFE RENTI AL/PL ATELE T immature grans (abs) 0.0 x10e3 /uL 0.0-0. 1 Not Available [facility] ([facility]) [address] [facility], [place], [address], 02/05/2024 19:07:53 01/29/20 24 01/30/2024 CBC WITH DIFFE RENTI AL/PL ATELE T NRBC HOOF TRIMMER Not Available [facility] ([facility]) [address] [facility], [place], [address], 02/05/2024 19:07:53 01/29/2001/30/2024 CBC WITH DIFFE RENTI AL/PL ATELE T hematology comments: HOOF TRIMMER Not Available [facility] ([facility]) [address] [facility], [place], [address], 02/05/2024 19:07:53 01/29/20 24 01/30/2024 URINA LYSIS , COMPL ETE specific gravity 1.013 1.005- 1.030 normal Not Available [facility] ([facility]) [address] [facility], [place], [address], 02/05/2024 19:07:54 01/29/20 24 01/30/2024 URINA LYSIS , COMPL ETE pH 6.0 5.0-7. 5 normal Not Available [facility] ([facility]) [address] [facility], [place], [address], 02/05/2024 19:07:54 01/29/20 24 01/30/2024 URINA LYSIS , COMPL ETE urine-color Yellow yellow Not Available [facility] ([facility]) [address] [facility], [place], [address], 02/05/2024 19:07:54 01/29/20 24 01/30/2024 URINA LYSIS , COMPL ETE appearance Clear clear Not Available [facility] ([facility]) [address] [facility], [place], [address], 02/05/2024 19:07:54 01/29/2001/30/2024 URINA LYSIS , COMPL ETE WBC esterase Trace negati ve abnormal Not Available [facility] ([facility]) [address] [facility], [place], [address], 02/05/2024 19:07:54 01/29/2001/30/2024 URINA LYSIS , COMPL ETE protein Negati ve negati ve/tra ce Not Available [facility] ([facility]) [address] [facility], [place], [address], 02/05/2024 19:07:54 01/29/20 24 01/30/2024 URINA LYSIS , COMPL ETE glucose Negati ve negati ve Not Available [facility] ([facility]) [address] [facility], [place], [address], 02/05/2024 19:07:54 01/29/20 24 01/30/2024 URINA LYSIS , COMPL ETE ketones Negati ve negati ve Not Available [facility] ([facility]) [address] [facility], [place], [address], 02/05/2024 19:07:54 01/29/20 24 01/30/2024 URINA LYSIS , COMPL ETE occult blood Negati ve negati ve Not Available [facility] ([facility]) [address] [facility], [place], [address], 02/05/2024 19:07:54 01/29/2001/30/2024 URINA LYSIS , COMPL ETE bilirubin Negati ve negati ve Not Available [facility] ([facility]) [address] [facility], [place], [address], 02/05/2024 19:07:54 01/29/2001/30/2024 URINA LYSIS , COMPL ETE urobilinogen ,semi-qn 0.2 mg/dL 0.2-1. 0 normal Not Available [facility] ([facility]) [address] [facility], [place], [address], 02/05/2024 19:07:54 01/29/20 24 01/30/2024 URINA LYSIS , COMPL ETE nitrite, urine Negati ve negati ve Not Available [facility] ([facility]) [address] [facility], [place], [address], 02/05/2024 19:07:54 01/29/20 24 01/30/2024 URINA LYSIS , COMPL ETE microscopic examination See below: Micro scopi c was indic ated and was perfo rmed. Not Available [facility] ([facility]) [address] [facility], [place], [address], 02/05/2024 19:07:54 01/29/20 24 01/30/2024 URINA LYSIS , COMPL ETE WBC 0-5 /hpf 0 - 5 Not Available [facility] ([facility]) [address] [place], [address], 02/05/2024 19:07:54 01/29/20 24 01/30/2024 URINA LYSIS , COMPL ETE RBC None seen /hpf 0 - 2 Not Available [facility] ([facility]) [address] [facility], [place], [address], 02/05/2024 19:07:54 01/29/20 24 01/30/2024 URINA LYSIS , COMPL ETE epithelial cells (non renal) None seen /hpf 0 - 10 Not Available [facility] ([facility]) [address] [facility], [place], [address], 02/05/2024 19:07:54 01/29/20 24 01/30/2024 URINA LYSIS , COMPL ETE epithelial cells (renal) HOOF TRIMMER Not Available [facility] ([facility]) [address] [facility], [place], [address], 02/05/2024 19:07:54 01/29/20 24 01/30/2024 URINA LYSIS , COMPL ETE casts None seen /lpf none seen Not Available [facility] ([facility]) [address], [place], [address], 02/05/2024 19:07:54 01/29/2001/30/2024 URINA LYSIS , COMPL ETE cast type HOOF TRIMMER Not Available [facility] ([facility]) [address], [place], [address], 02/05/2024 19:07:54 01/29/20 24 01/30/2024 URINA LYSIS , COMPL ETE crystals HOOF TRIMMER Not Available [facility] ([facility]) [address] [facility], [place], [address], 02/05/2024 19:07:54 01/29/20 24 01/30/2024 URINA LYSIS , COMPL ETE crystal type HOOF TRIMMER Not Available [facility] ([facility]) [address] [facility], [place], [address], 02/05/2024 19:07:54 01/29/20 24 01/30/2024 URINA LYSIS , COMPL ETE mucus threads HOOF TRIMMER Not Available [facility] ([facility]) [address] [facility], [place], [address], 02/05/2024 19:07:54 01/29/20 24 01/30/2024 URINA LYSIS , COMPL ETE bacteria None seen none seen/f ew Not Available [facility] ([facility]) [address] [facility], [place], [address], 02/05/2024 19:07:54 01/29/20 24 01/30/2024 URINA LYSIS , COMPL ETE yeast HOOF TRIMMER Not Available [facility] ([facility]) [address] [facility], [place], [address], 02/05/2024 19:07:54 01/29/20 24 01/30/2024 URINA LYSIS , COMPL ETE trichomonas HOOF TRIMMER Not Available [facility] ([facility]) [address] [place], [address], 02/05/2024 19:07:54 01/29/20 24 01/30/2024 URINA LYSIS , COMPL ETE comment HOOF TRIMMER Not Available [facility] ([facility]) [address] [place], [address], 02/05/2024 19:07:54 01/29/20 24 01/30/2024 URINA LYSIS , COMPL ETE microscopic examination HOOF TRIMMER Not Available [facility] ([facility]) [address] [place], [address], 02/05/2024 19:07:54 01/29/20 24 01/29/2024 LP+LD L DIR LDL calc comment: Commen t See LDL Comme nt if repor darwin. Not Available [facility] ([facility]) [address] [place], [address], 02/05/2024 19:07:54 01/29/20 24 01/30/2024 LP+LD L DIR cholesterol, total 111 mg/dL 100-19 9 normal Not Available [facility] ([facility]) [address] [place], [address], 02/05/2024 19:07:54 01/29/20 24 01/30/2024 LP+LD L DIR triglyceride s 108 mg/dL 0-149 normal Not Available [facility] ([facility]) [address] [place], [address], 02/05/2024 19:07:54 01/29/20 24 01/30/2024 LP+LD L DIR HDL cholesterol 52 mg/dL >39 normal Not Available [facility] ([facility]) [address] [place], [address], 02/05/2024 19:07:54 01/29/20 24 01/30/2024 LP+LD L DIR VLDL cholesterol tyrone 20 mg/dL 5-40 Not Available [facility] ([facility]) [address] [facility], [place], [address], 02/05/2024 19:07:54 01/29/20 24 01/30/2024 LP+LD L DIR LDL chol calc (nih) 39 mg/dL 0-99 Not Available [facility] ([facility]) [address] [facility], [place], [address], 02/05/2024 19:07:54 01/29/20 24 01/30/2024 LP+LD L DIR LDL chol. (direct) 41 mg/dL 0-99 Not Available [facility] ([facility]) [address] [facility], [place], [address], 02/05/2024 19:07:54 01/29/20 24 01/30/2024 LP+LD L DIR LDL direct comment: HOOF TRIMMER Not Available [facility] ([facility]) [address] [facility], [place], [address], 02/05/2024 19:07:54 01/29/20 24 02/04/2024 TRANS MORAIMA N SATUR ATION iron 62 ug/dL Refer ence Range : >=10y : 37 - 145 Not Available [facility] [address] [place], [address], 02/05/2024 19:07:55 01/29/2002/04/2024 TRANS MORAIMA N SATUR ATION transferrin saturation 18 %_sat urati on Refer ence Range : Child farooq and Adult s: 15 - 55 Not Available [facility] [address] [place], [address], 02/05/2024 19:07:55 01/29/20 24 02/04/2024 TRANS MORAIMA N SATUR ATION transferrin 246 mg/dL Refer ence Range : Child farooq and Adult s: 200 - 370 Not Available [facility] [address] [facility], [place], [address], 02/05/2024 19:07:55 01/29/20 24 01/30/2024 ALBUM IN/CR EAT RATIO , RANDO M UR creatinine, urine 56.0 mg/dL not estab. normal Not Available [facility] ([facility]) [address] [place], [address], 02/05/2024 19:07:55 01/29/2001/30/2024 ALBUM IN/CR EAT RATIO , RANDO M UR albumin, urine <3.0 ug/mL not estab. Not Available [facility] ([facility]) [address] [place], [address], 02/05/2024 19:07:55 01/29/20 24 01/30/2024 ALBUM IN/CR EAT RATIO , RANDO M UR alb/creat ratio <5 mg/g_ creat 0-29 Julissa l: 0 - 29 Moder ately incre ased: 30 - 300 Sever rozina incre ased: >300 Not Available [facility] ([facility]) [address] [place], [address], 02/05/2024 19:07:55 01/29/2001/30/2024 HGB A1C WITH EAG ESTIM ATION hemoglobin A1C 5.5 % 4.8-5. 6 normal Predi abete s: 5.7 - 6.4 Diabe darcy: >6.4 Glyce mikey contr ol for adult s with diabe darcy: <7.0 Not Available [facility] ([facility]) [address] [place], [address], 02/05/2024 19:07:56 01/29/20 24 01/30/2024 HGB A1C WITH EAG ESTIM ATION estim. avg glu (EAG) 111 mg/dL Not Available [facility] ([facility]) [address] [facility], [place], [address], 02/05/2024 19:07:56 01/29/2001/31/2024 C-KEY CTIVE PROTE IN, CARDI AC C-reactive protein, cardiac 0.87 mg/L 0.00-3 .00 Relat bindu Risk for Futur e Cardi ovasc ular Event Low <1.00 [place] ge 1.00 - 3.00 High >3.00 Not Available [facility] ([facility]) [address] [facility], [place], [address], 02/05/2024 19:07:56 01/29/2002/05/2024 LIPOP ROTEI N (A) lipoprotein (A) 4 mg/dL The mean and media n [facility] ntrat ion of the [facility] is appro ximat rozina twice that of the [facility] , al[facility]o [facility] stud[facility] es have shown that eleva darwin Lp(a[facility] ntrat ion is not an indep enden t risk facto r for devel oping ather oscle rotic disea se in the [facility] . Refer ence Range : <31 Not Available [facility] [address] [facility], [place], [address], 02/05/2024 19:07:57 07/29/19 25 07/30/2024 IRON, TIBC AND MORAIMA TIN PANEL iron, total 84 mcg/d L 45-160 normal Not Available [facility] - [address], [place], [address], 07/30/2024 19:46:38 07/29/1907/30/2024 IRON, TIBC AND MORAIMA TIN PANEL iron binding capacity 320 mcg/d L_(ca lc) 250-45 0 normal Not Available [facility] - [address], [place], [address], 07/30/2024 19:46:38 07/29/19 25 07/30/2024 IRON, TIBC AND MORAIMA TIN PANEL % saturation 26 %_(ca lc) 16-45 normal Not Available [address], [place], [address], 07/30/2024 19:46:38 07/29/19 25 07/30/2024 IRON, TIBC AND MORAIMA TIN PANEL ferritin 19 NG/mL 16-288 normal Not Available [address], [place], [address], 07/30/2024 19:46:38 07/29/19 25 07/30/2024 LIPID PANEL WITH REFLE X TO DIREC T LDL cholesterol, total 97 mg/dL <200 normal Not Available [address], [place], [address], 07/30/2024 19:46:38 07/29/19 25 07/30/2024 LIPID PANEL WITH REFLE X TO DIREC T LDL HDL cholesterol 47 mg/dL > or = 50 low Not Available [address], [place], [address], 07/30/2024 19:46:38 07/29/19 25 07/30/2024 LIPID PANEL WITH REFLE X TO DIREC T LDL triglyceride s 104 mg/dL <150 normal Not Available [address], [place], [address], 07/30/2024 19:46:38 07/29/19 25 07/30/2024 LIPID PANEL WITH REFLE X TO DIREC T LDL LDL-choleste rol 31 mg/dL _(tyrone c) normal Refer ence range : <100 Libby able range <100 mg/dL for prima ry preve ntion ; <70 mg/dL for patie nts with CHD or diabe tic patie nts with > or = 2 CHD risk facto rs. LDL-C is now calcu lated using the Natividad n-Hop kins hubertu patricia n, which is a valid ated novel chris mora r accur acy than the Fried abdiel equat ion in the estim ation of LDL-C . Natividad hancock SS et al. JOANNA. 2013; 310(1 9): 2061- 2068 (http ://ed ucati on.Qu estDi DesignMyNights. com/f aq/FA Q164) Not Available [facility] [address], [place], [address], 07/30/2024 19:46:38 07/29/1907/30/2024 LIPID PANEL WITH REFLE X TO DIREC T LDL chol/HDLC ratio 2.1 (calc ) <5.0 normal Not Available [facility] [address], [place], [address], 07/30/2024 19:46:38 07/29/19 25 07/30/2024 LIPID PANEL WITH REFLE X TO DIREC T LDL non HDL cholesterol 50 mg/dL _(tyrone c) <130 normal For patie nts with diabe darcy plus 1 major ASCVD risk facto r, treat ing to a non-H DL-C goal of <100 mg/dL (LDL- C of <70 mg/dL ) is consi reed a eliazar pritchett optio n. Not Available [facility] [address], [place], [address], 07/30/2024 19:46:38 07/29/1907/30/2024 LIPOP ROTEI N (A) lipoprotein (A) 11 nmol/ L normal Refer ence Range <75 Risk: Optim al <75 Moder ate 75-12 5 High >125 Cardi ovasc ular event risk categ ory cut point s (opti mal, moder ate, high) are based on Christopher Thomas JACC 2017; 69:69 2-711 . Not Available [address], [place], [address], 07/30/2024 19:46:39 07/29/19 25 07/30/2024 COMPR EHENS BINDU METAB OLIC PANEL glucose 85 mg/dL 65-99 normal Fasti ng refer ence inter colin Not Available [address], [place], [address], 07/30/2024 19:46:40 07/29/19 25 07/30/2024 COMPR EHENS BINDU METAB OLIC PANEL urea nitrogen (BUN) 19 mg/dL 7-25 normal Not Available [address], [place], [address], 07/30/2024 19:46:40 07/29/19 25 07/30/2024 COMPR EHENS BINDU METAB OLIC PANEL creatinine 1.04 mg/dL 0.60-1 .00 high Not Available [address], [place], [address], 07/30/2024 19:46:40 07/29/19 25 07/30/2024 COMPR EHENS BINDU METAB OLIC PANEL eGFR 56 mL/mi n/1.7 3m2 > or = 60 low Not Available [address], [place], [address], 07/30/2024 19:46:40 07/29/19 25 07/30/2024 COMPR EHENS BINDU METAB OLIC PANEL BUN/creatini ne ratio 18 (calc ) 6-22 normal Not Available [address], [place], [address], 07/30/2024 19:46:40 07/29/19 25 07/30/2024 COMPR EHENS BINDU METAB OLIC PANEL sodium 140 mmol/ L 135-14 6 normal Not Available [address], [place], [address], 07/30/2024 19:46:40 07/29/19 25 07/30/2024 COMPR EHENS BINDU METAB OLIC PANEL potassium 4.0 mmol/ L 3.5-5. 3 normal Not Available [address], [place], [address], 07/30/2024 19:46:40 07/29/19 25 07/30/2024 COMPR EHENS BINDU METAB OLIC PANEL chloride 109 mmol/ L 98-110 normal Not Available [address], [place], [address], 07/30/2024 19:46:40 07/29/19 25 07/30/2024 COMPR EHENS BINDU METAB OLIC PANEL carbon dioxide 23 mmol/ L 20-32 normal Not Available [address], [place], [address], 07/30/2024 19:46:40 07/29/19 25 07/30/2024 COMPR EHENS BINDU METAB OLIC PANEL calcium 9.1 mg/dL 8.6-10 .4 normal Not Available [address], [place], [address], 07/30/2024 19:46:40 07/29/19 25 07/30/2024 COMPR EHENS BINDU METAB OLIC PANEL protein, total 6.9 g/dL 6.1-8. 1 normal Not Available [address], [place], [address], 07/30/2024 19:46:40 07/29/19 25 07/30/2024 COMPR EHENS BINDU METAB OLIC PANEL albumin 4.3 g/dL 3.6-5. 1 normal Not Available [address], [place], [address], 07/30/2024 19:46:40 07/29/19 25 07/30/2024 COMPR EHENS BINDU METAB OLIC PANEL globulin 2.6 g/dL_ (calc ) 1.9-3. 7 normal Not Available [address], [place], [address], 07/30/2024 19:46:40 07/29/19 25 07/30/2024 COMPR EHENS BINDU METAB OLIC PANEL albumin/glob ulin ratio 1.7 (calc ) 1.0-2. 5 normal Not Available [address], [place], [address], 07/30/2024 19:46:40 07/29/19 25 07/30/2024 COMPR EHENS BINDU METAB OLIC PANEL bilirubin, total 0.5 mg/dL 0.2-1. 2 normal Not Available [address], [place], [address], 07/30/2024 19:46:40 07/29/19 25 07/30/2024 COMPR EHENS BINDU METAB OLIC PANEL alkaline phosphatase 138 U/L 37-153 normal Not Available [facility] [address], [place], [address], 07/30/2024 19:46:40 07/29/19 25 07/30/2024 COMPR EHENS BINDU METAB OLIC PANEL AST 13 U/L 10-35 normal Not Available [address], [place], [address], 07/30/2024 19:46:40 07/29/19 25 07/30/2024 COMPR EHENS BINDU METAB OLIC PANEL ALT 10 U/L 6-29 normal Not Available [address], [place], [address], 07/30/2024 19:46:40 07/29/19 25 07/30/2024 ALBUM IN, RANDO M URINE W/CRE ATINI NE creatinine, random urine 54 mg/dL 20-275 normal Not Available [facility] [address], [place], [address], 07/30/2024 19:46:40 07/29/19 25 07/30/2024 ALBUM IN, RANDO M URINE W/CRE ATINI NE albumin, urine 0.9 mg/dL see note: normal Refer ence Range : Refer ence Range Not estab lishe d Not Available [address], [place], [address], 07/30/2024 19:46:40 07/29/19 25 07/30/2024 ALBUM IN, RANDO M URINE W/CRE ATINI NE albumin/crea tinine ratio, random urine 17 mg/g_ creat <30 normal The ADA defin es abnor malit ies in album in excre tion as follo ws: Album inuri a Categ ory Resul t (mg/g creat inine ) Julissa l to Mildl y incre ased <30 Moder ately incre ased 30-29 9 Sever rozina incre ased > OR = 300 The ADA recom mends that at least two of three speci mens colle cted withi n a 3-6 month perio d be abnor mal befor e consi radha g a patie nt to be withi n a diagn ostic categ ory. Not Available [address], [place], [address], 07/30/2024 19:46:40 07/29/1907/30/2024 URINA LYSIS , COMPL ETE color YELLOW yellow normal Not Available [address], [place], [address], 07/30/2024 19:46:41 07/29/1907/30/2024 URINA LYSIS , COMPL ETE appearance CLEAR clear normal Not Available [address], [place], [address], 07/30/2024 19:46:41 07/29/1907/30/2024 URINA LYSIS , COMPL ETE specific gravity 1.011 1.001- 1.035 normal Not Available [address], [place], [address], 07/30/2024 19:46:41 07/29/1907/30/2024 URINA LYSIS , COMPL ETE pH 6.0 5.0-8. 0 normal Not Available [address], [place], [address], 07/30/2024 19:46:41 07/29/1907/30/2024 URINA LYSIS , COMPL ETE glucose 1+ negati ve abnormal Not Available [address], [place], [address], 07/30/2024 19:46:41 07/29/1907/30/2024 URINA LYSIS , COMPL ETE bilirubin NEGATI VE negati ve normal Not Available [address], [place], [address], 07/30/2024 19:46:41 07/29/1907/30/2024 URINA LYSIS , COMPL ETE ketones NEGATI VE negati ve normal Not Available [address], [place], [address], 07/30/2024 19:46:41 07/29/19 25 07/30/2024 URINA LYSIS , COMPL ETE occult blood NEGATI VE negati ve normal Not Available [address], [place], [address], 07/30/2024 19:46:41 07/29/19 25 07/30/2024 URINA LYSIS , COMPL ETE protein NEGATI VE negati ve normal Not Available [address], [place], [address], 07/30/2024 19:46:41 07/29/19 25 07/30/2024 URINA LYSIS , COMPL ETE nitrite NEGATI VE negati ve normal Not Available [address], [place], [address], 07/30/2024 19:46:41 07/29/19 25 07/30/2024 URINA LYSIS , COMPL ETE leukocyte esterase 1+ negati ve abnormal Not Available [address], [place], [address], 07/30/2024 19:46:41 07/29/19 25 07/30/2024 URINA LYSIS , COMPL ETE WBC 6-10 /hpf < or = 5 abnormal Not Available [address], [place], [address], 07/30/2024 19:46:41 07/29/19 25 07/30/2024 URINA LYSIS , COMPL ETE RBC NONE SEEN /hpf < or = 2 normal Not Available [address], [place], [address], 07/30/2024 19:46:41 07/29/19 25 07/30/2024 URINA LYSIS , COMPL ETE squamous epithelial cells NONE SEEN /hpf < or = 5 normal Not Available [address], [place], [address], 07/30/2024 19:46:41 07/29/19 25 07/30/2024 URINA LYSIS , COMPL ETE bacteria NONE SEEN /hpf none seen normal Not Available [address], [place], [address], 07/30/2024 19:46:41 07/29/19 25 07/30/2024 URINA LYSIS , COMPL ETE hyaline cast NONE SEEN /lpf none seen normal Not Available [address], [place], [address], 07/30/2024 19:46:41 07/29/1907/30/2024 URINA LYSIS , COMPL ETE note This urine was shree zed for the prese nce of WBC, RBC, bacte remi, casts , and other forme d eleme nts. Only those eleme nts seen were repor darwin. Not Available [address], [place], [address], 07/30/2024 19:46:41 07/29/19 25 07/30/2024 CBC (INCL UDES DIFF/ PLT) white blood cell count 5.1 thous and/u L 3.8-10 .8 normal Not Available [address], [place], [address], 07/30/2024 19:46:42 07/29/19 25 07/30/2024 CBC (INCL UDES DIFF/ PLT) red blood cell count 4.73 ericka on/uL 3.80-5 .10 normal Not Available [address], [place], [address], 07/30/2024 19:46:42 07/29/19 25 07/30/2024 CBC (INCL UDES DIFF/ PLT) hemoglobin 13.5 g/dL 11.7-1 5.5 normal Not Available [address], [place], [address], 07/30/2024 19:46:42 07/29/1907/30/2024 CBC (INCL UDES DIFF/ PLT) hematocrit 41.1 % 35.0-4 5.0 normal Not Available [address], [place], [address], 07/30/2024 19:46:42 07/29/1907/30/2024 CBC (INCL UDES DIFF/ PLT) MCV 86.9 fL 80.0-1 00.0 normal Not Available [address], [place], [address], 07/30/2024 19:46:42 07/29/19 25 07/30/2024 CBC (INCL UDES DIFF/ PLT) MCH 28.5 pg 27.0-3 3.0 normal Not Available [address], [place], [address], 07/30/2024 19:46:42 07/29/1907/30/2024 CBC (INCL UDES DIFF/ PLT) MCHC 32.8 g/dL 32.0-3 6.0 normal For adult s, a sligh t decre ase in the calcu lated MCHC value (in the range of 30 to 32 g/dL) is most likel y not clini steve field t; frida er, it shoul d be inter prete d with cauti on in [facility] n with other red cell eddie eters and the patie nt's clini tyrone condi tion. Not Available [facility] [address], [place], [address], 07/30/2024 19:46:42 07/29/1907/30/2024 CBC (INCL UDES DIFF/ PLT) RDW 13.0 % 11.0-1 5.0 normal Not Available [address], [place], [address], 07/30/2024 19:46:42 07/29/19 25 07/30/2024 CBC (INCL UDES DIFF/ PLT) platelet count 242 thous and/u L 140-40 0 normal Not Available [address], [place], [address], 07/30/2024 19:46:42 07/29/19 25 07/30/2024 CBC (INCL UDES DIFF/ PLT) MPV 10.2 fL 7.5-12 .5 normal Not Available [address], [place], [address], 07/30/2024 19:46:42 07/29/1907/30/2024 CBC (INCL UDES DIFF/ PLT) absolute neutrophils 3182 cells /uL 1500-7 800 normal Not Available [address], [place], [address], 07/30/2024 19:46:42 07/29/19 25 07/30/2024 CBC (INCL UDES DIFF/ PLT) absolute lymphocytes 1188 cells /uL 850-39 00 normal Not Available [address], [place], [address], 07/30/2024 19:46:42 07/29/19 25 07/30/2024 CBC (INCL UDES DIFF/ PLT) absolute monocytes 459 cells /uL 200-95 0 normal Not Available [address], [place], [address], 07/30/2024 19:46:42 07/29/19 25 07/30/2024 CBC (INCL UDES DIFF/ PLT) absolute eosinophils 189 cells /uL 15-500 normal Not Available [address], [place], [address], 07/30/2024 19:46:42 07/29/19 25 07/30/2024 CBC (INCL UDES DIFF/ PLT) absolute basophils 82 cells /uL 0-200 normal Not Available [address], [place], [address], 07/30/2024 19:46:42 07/29/19 25 07/30/2024 CBC (INCL UDES DIFF/ PLT) neutrophils 62.4 % normal Not Available [address], [place], [address], 07/30/2024 19:46:42 07/29/19 25 07/30/2024 CBC (INCL UDES DIFF/ PLT) lymphocytes 23.3 % normal Not Available [address], [place], [address], 07/30/2024 19:46:42 07/29/19 25 07/30/2024 CBC (INCL UDES DIFF/ PLT) monocytes 9.0 % normal Not Available [address], [place], [address], 07/30/2024 19:46:42 07/29/19 25 07/30/2024 CBC (INCL UDES DIFF/ PLT) eosinophils 3.7 % normal Not Available [address], [place], [address], 07/30/2024 19:46:42 07/29/19 25 07/30/2024 CBC (INCL UDES DIFF/ PLT) basophils 1.6 % normal Not Available [facility] [address], [place], [address], 07/30/2024 19:46:42 07/29/1907/30/2024 HS CRP hs CRP 2.8 mg/L normal Refer ence Range Optim al <1.0 Radha ross PS et al. Endoc r Pract .2017 ;23(S uppl 2):1- 87. For ages >17 Years : hs-CR P mg/L Risk Accor ding to AHA/C DC Guide lines <1.0 Lower relat bindu cardi ovasc ular risk. 1.0-3 .0 [place] ge relat bindu cardi ovasc ular risk. 3.1-1 0.0 Highe r relat bindu cardi ovasc ular risk. Consi benson retes ting in 1 to 2 weeks to exclu de a benig n trans ient eleva tion in the basel ine CRP value secon [place] to infec tion or infla mmati on. >10.0 Persi stent eleva tion, upon retes ting, may be assoc iated with infec tion and infla mmati on. Pears on TA, Mensa h [place], Bonita blair RW, et al. [facility] rs of infla mmati on and cardi ovasc ular disea se: appli catio n to clini tyrone and publi c healt h pract ice: A state ment for healt jasbirre natali smith from the [facility] rs for Disea se Contr ol and Preve ntion and the Ameri can Heart Assoc iatio n. Circu latio n 2003; 107(3 ): 499-5 11. Not Available [facility] [address], [place], [address], 07/30/2024 19:46:42 07/29/1907/30/2024 TSH+F REE T4 TSH 2.15 mIU/L 0.40-4 .50 normal Not Available [facility] [address], [place], [address], 07/30/2024 19:46:43 07/29/1907/30/2024 TSH+F REE T4 T4, free 1.1 NG/dL 0.8-1. 8 normal Not Available [facility] [address] [place] [address] [address], [place], [address], 07/30/2024 19:46:43 07/29/1907/30/2024 HEMOG LOBIN A1C WITH EAG hemoglobin A1C 5.3 % <5.7 normal For the purpo se of paramjit ortega for the prese nce of diabe darcy: <5.7% Consi stent with the absen ce of diabe darcy 5.7-6 .4% Consi stent with incre ased risk for diabe darcy (pred iabet es) > or =6.5% Consi stent with diabe darcy This assay resul t is consi stent with a decre ased risk of diabe darcy. Curre ntly, no conse nsus exist s rick alcocer use of hemog lobin A1c for diagn osis of diabe darcy in child farooq. Accor ding to Ameri can Diabe darcy Assoc iatio n (ADA) guide lines , hemog lobin A1c <7.0% repre sents optim al contr ol in non-p regna nt diabe tic patie nts. Diffe rent metri cs may apply to speci fic patie nt popul ation s. Stand ards of Medic al Care in Diabe darcy(A DA). Not Available [facility] - [address], [place], [address], 07/30/2024 19:46:43 07/29/1907/30/2024 HEMOG LOBIN A1C WITH EAG EAG (mg/dL) 105 mg/dL Not Available [facility] [address], [place], [address], 07/30/2024 19:46:43 07/29/19 25 07/30/2024 HEMOG LOBIN A1C WITH EAG EAG (mmol/L) 5.8 mmol/ L Not Available [facility] - [facility] [address], [place], [address], 07/30/2024 19:46:43 01/24/20 25 01/24/2025 URINA LYSIS , ROUTI NE specific gravity 1.013 1.005- 1.030 normal Not Available [facility] ([facility]) [address] [place], [address], 01/24/2025 15:09:02 01/24/2001/24/2025 URINA LYSIS , ROUTI NE pH 6.0 5.0-7. 5 normal Not Available [facility] ([facility]) [address] [place], [address], 01/24/2025 15:09:02 01/24/20 25 01/24/2025 URINA LYSIS , ROUTI NE urine-color Yellow yellow Not Available [facility] ([facility]) [address] [place], [address], 01/24/2025 15:09:02 01/24/20 25 01/24/2025 URINA LYSIS , ROUTI NE appearance Clear clear Not Available [facility] ([facility]) [address] [place], [address], 01/24/2025 15:09:02 01/24/2001/24/2025 URINA LYSIS , ROUTI NE WBC esterase 1+ negati ve abnormal Not Available [facility] ([facility]) [address] [place], [address], 01/24/2025 15:09:02 01/24/20 25 01/24/2025 URINA LYSIS , ROUTI NE protein Negati ve negati ve/tra ce Not Available [facility] ([facility]) [address] [place], [address], 01/24/2025 15:09:02 01/24/20 25 01/24/2025 URINA LYSIS , ROUTI NE glucose 1+ negati ve abnormal Not Available [facility] ([facility]) [address] [place], [address], 01/24/2025 15:09:02 01/24/20 25 01/24/2025 URINA LYSIS , ROUTI NE ketones Negati ve negati ve Not Available [facility] ([facility]) [address] [place], [address], 01/24/2025 15:09:02 01/24/2001/24/2025 URINA LYSIS , ROUTI NE occult blood Negati ve negati ve Not Available [facility] ([facility]) [address] [place], [address], 01/24/2025 15:09:02 01/24/20 25 01/24/2025 URINA LYSIS , ROUTI NE bilirubin Negati ve negati ve Not Available [facility] ([facility]) [address] [place], [address], 01/24/2025 15:09:02 01/24/20 25 01/24/2025 URINA LYSIS , ROUTI NE urobilinogen ,semi-qn 0.2 mg/dL 0.2-1. 0 normal Not Available [facility] ([facility]) [address] [place], [address], 01/24/2025 15:09:02 01/24/20 25 01/24/2025 URINA LYSIS , ROUTI NE nitrite, urine Negati ve negati ve Not Available [facility] ([facility]) [address] [place], [address], 01/24/2025 15:09:02 01/24/20 25 01/24/2025 URINA LYSIS , ROUTI NE microscopic examination See below: Micro scopi c was indic ated and was perfo rmed. Not Available [facility] ([facility]) [address] [facility], [place], [address], 01/24/2025 15:09:02 01/24/20 25 01/24/2025 URINA LYSIS , ROUTI NE WBC None seen /hpf 0 - 5 Not Available [facility] ([facility]) [address] [facility], [place], [address], 01/24/2025 15:09:02 01/24/20 25 01/24/2025 URINA LYSIS , ROUTI NE RBC None seen /hpf 0 - 2 Not Available [facility] ([facility]) [address] [facility], [place], [address], 01/24/2025 15:09:02 01/24/20 25 01/24/2025 URINA LYSIS , ROUTI NE epithelial cells (non renal) 0-10 /hpf 0 - 10 Not Available [facility] ([facility]) [address] [facility], [place], [address], 01/24/2025 15:09:02 01/24/20 25 01/24/2025 URINA LYSIS , ROUTI NE epithelial cells (renal) HOOF TRIMMER Not Available [facility] ([facility]) [address] [facility], [place], [address], 01/24/2025 15:09:02 01/24/20 25 01/24/2025 URINA LYSIS , ROUTI NE casts None seen /lpf none seen Not Available [facility] ([facility]) [address] [facility], [place], [address], 01/24/2025 15:09:02 01/24/20 25 01/24/2025 URINA LYSIS , ROUTI NE cast type HOOF TRIMMER Not Available [facility] ([facility]) [address] [facility], [place], [address], 01/24/2025 15:09:02 01/24/20 25 01/24/2025 URINA LYSIS , ROUTI NE crystals HOOF TRIMMER Not Available [facility] ([facility]) [address] [facility], [place], [address], 01/24/2025 15:09:02 01/24/20 25 01/24/2025 URINA LYSIS , ROUTI NE crystal type HOOF TRIMMER Not Available [facility] ([facility]) [address] [facility], [place], [address], 01/24/2025 15:09:02 01/24/20 25 01/24/2025 URINA LYSIS , ROUTI NE mucus threads HOOF TRIMMER Not Available [facility] ([facility]) [address] [facility], [place], [address], 01/24/2025 15:09:02 01/24/20 25 01/24/2025 URINA LYSIS , ROUTI NE bacteria None seen none seen/f ew Not Available [facility] ([facility]) [address] [facility], [place], [address], 01/24/2025 15:09:02 01/24/20 25 01/24/2025 URINA LYSIS , ROUTI NE yeast HOOF TRIMMER Not Available [facility] ([facility]) [address] [facility], [place], [address], 01/24/2025 15:09:02 01/24/20 25 01/24/2025 URINA LYSIS , ROUTI NE trichomonas HOOF TRIMMER Not Available [facility] ([facility]) [address] [facility], [place], [address], 01/24/2025 15:09:02 01/24/20 25 01/24/2025 URINA LYSIS , ROUTI NE comment HOOF TRIMMER Not Available [facility] ([facility]) [address] [facility], [place], [address], 01/24/2025 15:09:02 01/24/20 25 01/24/2025 CBC, PLATE LET, NO DIFFE RENTI AL WBC 6.1 x10e3 /uL 3.4-10 .8 normal Not Available [facility] ([facility]) [address] [facility], [place], [address], 01/24/2025 15:09:03 01/24/20 25 01/24/2025 CBC, PLATE LET, NO DIFFE RENTI AL RBC 5.33 x10e6 /uL 3.77-5 .28 above high normal Not Available [facility] ([facility]) [address] [facility], [place], [address], 01/24/2025 15:09:03 01/24/2001/24/2025 CBC, PLATE LET, NO DIFFE RENTI AL hemoglobin 15.2 g/dL 11.1-1 5.9 normal Not Available [facility] ([facility]) [address] [place], [address], 01/24/2025 15:09:03 01/24/20 25 01/24/2025 CBC, PLATE LET, NO DIFFE RENTI AL hematocrit 48.7 % 34.0-4 6.6 above high normal Not Available [facility] ([facility]) [address] [facility], [place], [address], 01/24/2025 15:09:03 01/24/20 25 01/24/2025 CBC, PLATE LET, NO DIFFE RENTI AL MCV 91 fL 79-97 normal Not Available [facility] ([facility]) [address] [place], [address], 01/24/2025 15:09:03 01/24/2001/24/2025 CBC, PLATE LET, NO DIFFE RENTI AL MCH 28.5 pg 26.6-3 3.0 normal Not Available [facility] ([facility]) [address] [place], [address], 01/24/2025 15:09:03 01/24/20 25 01/24/2025 CBC, PLATE LET, NO DIFFE RENTI AL MCHC 31.2 g/dL 31.5-3 5.7 below low normal Not Available [facility] ([facility]) [address] [facility], [place], [address], 01/24/2025 15:09:03 01/24/20 25 01/24/2025 CBC, PLATE LET, NO DIFFE RENTI AL RDW 13.2 % 11.7-1 5.4 Not Available [facility] ([facility]) [address] [facility], [place], [address], 01/24/2025 15:09:03 01/24/20 25 01/24/2025 CBC, PLATE LET, NO DIFFE RENTI AL platelets 221 x10e3 /uL 150-45 0 normal Not Available [facility] ([facility]) [address] [facility], [place], [address], 01/24/2025 15:09:03 01/24/20 25 01/24/2025 CBC, PLATE LET, NO DIFFE RENTI AL NRBC HOOF TRIMMER Not Available [facility] ([facility]) [address] [place], [address], 01/24/2025 15:09:03 01/24/20 25 01/24/2025 BASIC METAB OLIC PANEL (8) glucose 83 mg/dL 70-99 normal Not Available [facility] ([facility]) [address] [place], [address], 01/24/2025 15:09:04 01/24/20 25 01/24/2025 BASIC METAB OLIC PANEL (8) BUN 19 mg/dL 8-27 normal Not Available [facility] ([facility]) [address] [place], [address], 01/24/2025 15:09:04 01/24/20 25 01/24/2025 BASIC METAB OLIC PANEL (8) creatinine 1.25 mg/dL 0.57-1 .00 above high normal Not Available [facility] ([facility]) [address] [facility], [place], [address], 01/24/2025 15:09:04 01/24/2001/24/2025 BASIC METAB OLIC PANEL (8) eGFR 45 mL/mi n/1.7 3 >59 below low normal Not Available [facility] ([facility]) [address] [facility] [place], [address], 01/24/2025 15:09:04 01/24/20 25 01/24/2025 BASIC METAB OLIC PANEL (8) BUN/creatini ne ratio 15 12-28 normal Not Available [facility] ([facility]) [address] [facility] [place], [address], 01/24/2025 15:09:04 01/24/20 25 01/24/2025 BASIC METAB OLIC PANEL (8) sodium 144 mmol/ L 134-14 4 normal Not Available [facility] ([facility]) [address] [facility], [place], [address], 01/24/2025 15:09:04 01/24/20 25 01/24/2025 BASIC METAB OLIC PANEL (8) potassium 4.0 mmol/ L 3.5-5. 2 normal Not Available [facility] ([facility]) [address] [facility], [place], [address], 01/24/2025 15:09:04 01/24/20 25 01/24/2025 BASIC METAB OLIC PANEL (8) chloride 108 mmol/ L 96-106 above high normal Not Available [facility] ([facility]) [address] [facility] [place], [address], 01/24/2025 15:09:04 01/24/20 25 01/24/2025 BASIC METAB OLIC PANEL (8) carbon dioxide, total 22 mmol/ L 20-29 normal Not Available [facility] ([facility]) [address] [facility] [place], [address], 01/24/2025 15:09:04 01/24/20 25 01/24/2025 BASIC METAB OLIC PANEL (8) calcium 9.7 mg/dL 8.7-10 .3 normal Not Available [facility] ([facility]) [address] [facility] [place], [address], 01/24/2025 15:09:04 01/24/20 25 01/24/2025 HEPAT IC FUNCT ION PANEL (7) protein, total 7.1 g/dL 6.0-8. 5 normal Not Available [facility] ([facility]) [address] [facility] [place] [place], [address], 01/24/2025 15:09:04 01/24/20 25 01/24/2025 HEPAT IC FUNCT ION PANEL (7) albumin 4.4 g/dL 3.8-4. 8 normal Not Available [facility] ([facility]) [address] [facility] [place], [address], 01/24/2025 15:09:04 01/24/20 25 01/24/2025 HEPAT IC FUNCT ION PANEL (7) bilirubin, total 0.5 mg/dL 0.0-1. 2 normal Not Available [facility] ([facility]) [address] [facility] [place], [address], 01/24/2025 15:09:04 01/24/20 25 01/24/2025 HEPAT IC FUNCT ION PANEL (7) bilirubin, direct 0.16 mg/dL 0.00-0 .40 normal Not Available [facility] ([facility]) [address] [facility] [place], [address], 01/24/2025 15:09:04 01/24/20 25 01/24/2025 HEPAT IC FUNCT ION PANEL (7) alkaline phosphatase 169 IU/L 49-135 above high normal Not Available [facility] ([facility]) [address] [facility] [place], [address], 01/24/2025 15:09:04 01/24/20 25 01/24/2025 HEPAT IC FUNCT ION PANEL (7) AST (SGOT) 18 IU/L 0-40 normal Not Available [facility] ([facility]) [address] [facility] [place], [address], 01/24/2025 15:09:04 01/24/20 25 01/24/2025 HEPAT IC FUNCT ION PANEL (7) ALT (SGPT) 14 IU/L 0-32 normal Not Available [facility] ([facility]) [address] [facility] [place], [address], 01/24/2025 15:09:04 01/24/20 25 01/24/2025 LIPID PANEL cholesterol, total 118 mg/dL 100-19 9 normal Not Available [facility] ([facility]) [address] [place], [address], 01/24/2025 15:09:05 01/24/20 25 01/24/2025 LIPID PANEL triglyceride s 149 mg/dL 0-149 normal Not Available [facility] ([facility]) [address] [place], [address], 01/24/2025 15:09:05 01/24/20 25 01/24/2025 LIPID PANEL HDL cholesterol 53 mg/dL >39 normal Not Available [facility] ([facility]) [address] [place], [address], 01/24/2025 15:09:05 01/24/20 25 01/24/2025 LIPID PANEL VLDL cholesterol tyrone 25 mg/dL 5-40 Not Available [facility] ([facility]) [address] [place], [address], 01/24/2025 15:09:05 01/24/20 25 01/24/2025 LIPID PANEL LDL chol calc (nih) 40 mg/dL 0-99 Not Available [facility] ([facility]) [address] [place], [address], 01/24/2025 15:09:05 01/24/20 25 01/24/2025 LIPID PANEL LDL calc comment: HOOF TRIMMER Not Available [facility] ([facility]) [address] [facility], [place], [address], 01/24/2025 15:09:05 01/24/20 25 01/24/2025 IRON AND TIBC iron bind.cap.(TI BC) 308 ug/dL 250-45 0 normal Not Available [facility] ([facility]) [address] [facility] [place] [place], [address], 01/24/2025 15:09:05 01/24/20 25 01/24/2025 IRON AND TIBC UIBC 228 ug/dL 118-36 9 normal Not Available [facility] ([facility]) [address] [facility], [place], [address], 01/24/2025 15:09:05 01/24/20 25 01/24/2025 IRON AND TIBC iron 80 ug/dL 27-139 normal Not Available [facility] ([facility]) [address] [place], [address], 01/24/2025 15:09:05 01/24/20 25 01/24/2025 IRON AND TIBC iron saturation 26 % 15-55 normal Not Available [facility] ([facility]) [address] [facility], [place], [address], 01/24/2025 15:09:05 01/24/20 25 01/24/2025 ALBUM IN/CR EATIN INE RATIO ,URIN E creatinine, urine 47.1 mg/dL not estab. normal Not Available [facility] ([facility]) [address] [place], [address], 01/24/2025 15:09:06 01/24/20 25 01/24/2025 ALBUM IN/CR EATIN INE RATIO ,URIN E albumin, urine <3.0 ug/mL not estab. Not Available [facility] ([facility]) [address] [place], [address], 01/24/2025 15:09:06 01/24/2001/24/2025 ALBUM IN/CR EATIN INE RATIO ,URIN E alb/creat ratio <6 mg/g_ creat 0-29 Julissa l: 0 - 29 Moder ately incre ased: 30 - 300 Sever rozina incre ased: >300 Not Available [facility] ([facility]) [address] [facility], [place], [address], 01/24/2025 15:09:06 01/24/2001/24/2025 HEMOG LOBIN A1C hemoglobin A1C 5.3 % 4.8-5. 6 normal Predi abete s: 5.7 - 6.4 Diabe darcy: >6.4 Glyce mikey contr ol for adult s with diabe darcy: <7.0 Not Available [facility] ([facility]) [address] [facility], [place], [address], 01/24/2025 15:09:06 01/24/2001/24/2025 THYRO XINE (T4) FREE, DIREC T T4,free(dire ct) 1.17 NG/dL 0.82-1 .77 normal Not Available [facility] ([facility]) [address] [place], [address], 01/24/2025 15:09:06 01/24/2001/24/2025 TSH TSH 1.220 uIU/m L 0.450- 4.500 normal Not Available [facility] ([facility]) [address] [place], [address], 01/24/2025 15:09:07 01/24/2001/24/2025 C-KEY CTIVE PROTE IN, QUANT C-reactive protein, quant 2 mg/L 0-10 normal Not Available [facility] ([facility]) [address] [place], [address], 01/24/2025 15:09:07 01/24/20 25 01/24/2025 MORAIMA TIN ferritin 40 NG/mL 15-150 normal Not Available [facility] ([facility]) [address], [place], [address], 01/24/2025 15:09:07 05/12/19 25 05/12/2024 elect rocar diogr am No observ ation record ed. [email or web address] Not Available 05/12 19:38:09 01/31/20 elect rocar diogr am No observ ation record ed. [email or web address] [facility] [address], [place], [address], 02/02/2025 10:52:03 02/03/20 25 02/02/2025 elect rocar diogr am No observ ation record ed. [email or web address] [facility] [address], [place], [address], 02/02/2025 15:08:41 02/05/20 elect rocar diogr am No observ ation record ed. [facility] [address], [place], [address], 02/04/2025 10:03:15 Result Notes None recorded. Problems Name Problem SNOMED Code Status Onset Date Resolution Date Notes Provider Name and Address Organization Details Recorded Time [facility] hyperten chanda 77229455 Active Hyperten chanda Not Available [facility] 19:26:53 Prediabe darcy 981737025 Active Prediabe darcy Not Available [facility] 19:26:53 Hyperlip idemia 32200327 Completed 10/02/2024 Hyperlip idema Hy perlipid jermaine Wolfe MD [address], [place], [address] , [facility] 5 15:38:19 Coronary stent patent 804890858 Active Coronary Stenting Not Available [facility] 4 19:26:54 Angina co-occur rent and due to coronary arterios clerosis 47242299579 729912 Active 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 Not Available [facility] 4 19:26:55 Renal function tests outside referenc e range 646226043 Active Abnormal results of kidney function studies Not Available [facility] 4 19:26:55 Hypothyr oidism 18017709 Active Hypothyr oidism, unspecif ied Not Available [facility] 4 19:26:55 Obstruct bindu sleep apnea syndrome 46827327 Completed 10/02/2024 Obstruct bindu sleep apnea (adult) (pediatr ic) Not Available [facility] 5 12:35:14 Electroc ardiogra m abnormal 482696266 Active Abnormal EKG Not Available [facility] 4 19:26:56 Pre-surg iván testing Active Encounte r for preproce dural laborato ry examinat ion Not Available [facility] 4 19:26:56 Cardiomy opathy 39682461 Completed 10/02/2024 Cardiomy opathy Not Available [facility] 5 12:35:16 Severe obesity 88682003437 104 Active Obesity Morbid (severe) , due to excess calories Not Available [facility] 4 19:26:58 Fatigue 34188785 Completed 10/02/2024 Other fatigue Not Available [facility] 5 13:15:15 Aortocor onary bypass graft present 608609283 Active CABG Not Available [facility] 4 19:26:58 Periodic limb movement disorder 649153461 Completed 10/02/2024 Periodic limb movement disorder Not Available [facility] 5 12:35:13 Long-ter m current use of drug therapy 180870277 Active group home current drug therapy, other Not Available [facility] 4 19:27:00 Drowsy 917592108 Completed 10/02/2024 Somnolen ce Not Available [facility] 5 13:15:09 Paroxysm al atrial fibrilla tion 897235127 Active Atrial fibrilla tion, paroxysm al Not Available [facility] 19:27:00 Obesity 227933237 Active Obesity Not Available [facility] 19:27:01 Preopera tive cardiova scular examinat ion Active Encounte r for preproce dural cardiova scular examinat ion Not Available [facility] 19:27:02 Snoring 39156105 Completed 10/02/2024 Snoring Not Available [facility] 13:15:11 Heart murmur 72177437 Active Cardiac Murmur Not Available [facility] 13:15:10 Hyperlip idemia 49391661 Active 2024 Hyperlip idema Hy perlipid jermaine Wolfe MD [address], [place], [address] , [facility] 15:38:19 Problem Notes None recorded. Procedures Surgical History Date Name Laterality Status Provider Name and Address Organization Details Recorded Time 05/12/19 EKG - E&M visit completed Fredi Khanna [facility] 05/12/2024 17:24:54 operative procedure on hand completed [facility] 01/31/2024 22:09:29 Cholecystectomy completed [facility] 01/31/2024 22:09:42 open heart surgery completed [facility] 01/31/2024 22:10:01 total hysterectomy completed [facility] 01/31/2024 22:10:21 Stent completed [facility] 01/31/2024 22:10:42 Imaging Results None recorded. Procedure Notes None recorded. Medical Equipment None Reported. Allergies Allergen ID Allergen Name Allergen Category Reaction Reaction Severity Criticality Documentation Date Start Date Code Code System Note Provider Name and Address Organization Details Recorded Time 642065 Shellfish (substanc e) food,medi cation Not available Not available Not available 01/30/20252024 60354 9006 SNOMED unrec ogniz ed react ion (text : Unkno wn, code: [id number]) (from [facility]ter [facility]) Not Available [facility] External Data Service - prod 5 19:05:45 094476 cephalexi n monohydra te medicatio n Not available Not available Not available 01/30/2025 53565 8 RxNorm Not Available [facility] External Data Service - prod 5 19:12:07 597995 amoxicill in trihydrat e medicatio n Not available Not available Not available 01/30/2025 67085 8 RxNorm Not Available [facility] External Data Service - [facility] 5 19:12:07 07943 shellfish derived food,medi cation Not available Not available Not available 01/09/2024 Not Available [facility] 4 12:38:20 41419 cephalexi n medicatio n Not available Not available Not available 01/09/2024 2231 RxNorm Not Available [facility] 4 12:38:20 85240 amoxicill in medicatio n Not available Not available Not available 01/09/2024 723 RxNorm Not Available [facility] 4 12:38:20 75769 azithromy iron medicatio n Not available Not available Not available 01/09/2024 07429 RxNorm Not Available [facility] 4 12:38:20 Medications Name Sig Start Date Stop Date Status Note LastModified by Organization Details LastModified Time celecoxib 200 mg capsule TAKE 1 CAPSULE DAILY active Not Available Not Available No t Available atorvastati n 40 mg tablet TAKE 1 TABLET EVERY MORNING active Not Available Not Available No t Available methocarbam ol 500 mg tablet TAKE 1 TABLET BY MOUTH THREE TIMES A DAY 05/12 completed Not Available Not Available Not Available promethazin e-DM 6.25 mg-15 mg/5 mL oral syrup TAKE 5 ML BY MOUTH EVERY 6 HOURS NEEDED FOR COUGH 02/02 completed Not Available Not Available Not Available nystatin 100,000 unit/mL oral suspension SWISH FOR 1 MINUTE AND SPIT 5 ML 3 TIMES DAILY (USE FIRST) 02/02 completed Not Available Not Available Not Available doxycycline hyclate 100 mg capsule TAKE ONE CAPSULE BY MOUTH TWICE DAILY UNTIL GONE 05/12 completed Not Available Not Available Not Available ketoconazol e 2 % shampoo WASH AFFECTED AREAS OF GROIN 3 TIMES A WEEK. LEAVE IN PLACE FOR 5 MIN THEN RINSE OFF WITH WATER 02/03 completed Not Available Not Available Not Available clindamycin HCl 300 mg capsule TAKE 1 CAPSULE BY MOUTH THREE TIMES DAILY 01/30 completed Not Available Not Available Not Available trazodone 50 mg tablet TAKE 1 TABLET AT BEDTIME active Not Available Not Available No t Available Lidocaine Viscous 2 % mucosal solution USE 5ML EVERY 4 HOURS NEEDED (USE AFTER NYSTATIN) 02/02 completed Not Available Not Available Not Available fluconazole 150 mg tablet TAKE 1 TABLET BY MOUTH ONE DOSE 08/04 completed Not Available Not Available Not Available sucralfate 1 gram tablet TAKE 1 TABLET 4 TIMES DAILY active Not Available Not Available No t Available hydroquinon e 4 % topical cream APPLY TOPICALLY TO AFFECTED DARK AREAS AT BEDTIME 02/03 completed Not Available Not Available Not Available phenazopyri dine 200 mg tablet TAKE 1 TABLET BY MOUTH THREE TIMES A DAY AFTER MEALS 05/12 completed Not Available Not Available Not Available famotidine 40 mg tablet TAKE 1 TABLET AT BEDTIME active Not Available Not Available No t Available prednisone 20 mg tablet TAKE 2 TABLETS BY MOUTH ONCE DAILY 02/03 completed Not Available Not Available Not Available ciprofloxac in 250 mg tablet TAKE 1 TABLET BY MOUTH TWICE A DAY 02/03 completed Not Available Not Available Not Available levofloxaci n 250 mg tablet TAKE 1 TABLET BY MOUTH EVERY 24 HOURS FOR 7 DAYS 02/03 completed Not Available Not Available Not Available sulfamethox azole 800 mg-trimetho prim 160 mg tablet TAKE 2 TABLETS BY MOUTH IN THE MORNING AND EVERY NIGHT AT BEDTIME FOR 7 DAYS 01/30 completed Not Available Not Available Not Available aspirin 81 mg tablet,ramirez yed release TAKE 1 TABLET DAILY active Not Available Not Available No t Available spironolact one 25 mg tablet TAKE 1 TABLET DAILY active Not Available Not Available No t Available levothyroxi ne 25 mcg tablet TAKE 1 TABLET ONCE DAILY 08/04 completed Not Available Not Available Not Available zonisamide 100 mg capsule TAKE 4 CAPSULES ONCE DAILY. active Not Available Not Available No t Available ofloxacin 0.3 % ear drops INSTILL 10 DROPS TO THE RIGHT EAR DAILY 02/03 completed Not Available Not Available Not Available levothyroxi ne 50 mcg tablet 02/03 completed Not Available Not Available Not Available erythromyci n 5 mg/gram (0.5 %) eye ointment APPLY A PEA SZIED AMOUNT TO SURGICAL INCISION ON BOTH EYES FOUR TIMES DAILY FOR 1 WEEK THEN EVERY NIGHT AT BEDTIME FOR 1 MORE WEEK active Not Available Not Available No t Available nystatin 100,000 unit/gram topical cream APPLY 2 OR 3 TIMES A DAY TO AFFECTED AREA 02/03 completed Not Available Not Available Not Available clotrimazol e-betametha sone 1 %-0.05 % topical cream APPLY TOPICALLY TO AFFECTED AREAS TWICE A DAY FOR 2 WEEKS 02/03 completed Not Available Not Available Not Available lansoprazol e 30 mg capsule,del ayed release TAKE 1 CAPSULE DAILY active Not Available Not Available No t Available lidocaine 5 % topical patch 1 PATCH NEEDED EXTERNALL Y ONCE A DAY 02/02 completed Not Available Not Available Not Available valsartan 320 mg tablet TAKE 1 TABLET ONCE DAILY active Not Available Not Available No t Available montelukast 10 mg tablet TAKE 1 TABLET BY MOUTH EVERY EVENING 02/03 completed Not Available Not Available Not Available ammonium lactate 12 % topical cream APPLY TO THE AFFECTED AREA TWICE DAILY NEEDED FOR ITCHING OR DRY SKIN active Not Available Not Available No t Available levothyroxi ne 200 mcg tablet TAKE 1 TABLET ONCE DAILY AT6AM active Not Available Not Available No t Available aspirin 81 mg tablet take 1 tablet by mouth once daily 2024 active Not Available Not Available Not Avai lable mupirocin 2 % topical ointment APPLY TO AFFECTED AREA TWICE DAILY FOR 7 DAYS 02/03 completed Not Available Not Available Not Available digoxin 125 mcg (0.125 mg) tablet TAKE 1 TABLET DAILY active Not Available Not Available No t Available nystatin 100,000 unit/gram topical powder PLEASE SEE ATTACHED FOR DETAILED DIRECTION S 08/04 completed Not Available Not Available Not Available methylpredn isolone 4 mg tablets in a dose pack TAKE 6 TABLETS ON DAY 1 DIRECTED ON PACKAGE AND DECREASE BY 1 TAB EACH DAY FOR A TOTAL OF 6 DAYS 05/12 completed Not Available Not Available Not Available albuterol sulfate HFA 90 mcg/actuati on aerosol inhaler INHALE 2 PUFFS EVERY 6 HOURS FOR 30 DAYS 02/03 completed Not Available Not Available Not Available fluticasone propionate 50 mcg/actuati on nasal spray,suspe nsion USE 1 SPRAY IN EACH NOSTRIL TWICE A DAY 05/12 completed Not Available Not Available Not Available sertraline 50 mg tablet TAKE 1 TABLET DAILY active Not Available Not Available No t Available ezetimibe 10 mg tablet TAKE 1 TABLET DAILY active Not Available Not Available No t Available Hyalgan 10 mg/mL intra-artic ular syringe 02/03 completed Not Available Not Available Not Available ciprofloxac in 0.3 %-dexametha sone 0.1 % ear drops,suspe nsion INSTILL 3 DROPS INTO AFFECTED EAR TWICE A DAY 02/03 completed Not Available Not Available Not Available bupropion HCl XL 150 mg 24 hr tablet, extended release TAKE 1 TABLET EVERY MORNING active Not Available Not Available No t Available nitrofurant oin monohydrate /macrocryst als 100 mg capsule TAKE 1 CAPSULE BY MOUTH EVERY 12 HOURS FOR 5 DAYS 08/04 completed Not Available Not Available Not Available omega-3 acid ethyl esters 1 gram capsule TAKE 1 CAPSULE TWICE DAILY. active Not Available Not Available No t Available ibandronate 150 mg tablet TAKE 1 TABLET ONCE MONTHLY active Not Available Not Available No t Available chlorhexidi ne gluconate 0.12 % mouthwash RINSE MOUTH WITH 15ML BY MOUTH TWICE DAILY 02/02 completed Not Available Not Available Not Available valsartan 320 mg-hydrochl orothiazide 12.5 mg tablet TAKE 1 TABLET EVERY MORNING active Not Available Not Available No t Available rivaroxaban 2.5 mg tablet TAKE 1 TABLET TWICE A DAY active Not Available Not Available No t Available Vitals Date Recorded Body height Body mass index (BMI) Body weight Heart rate Oxygen saturation Systolic And Diastolic Provider Name and Address Organization Details Last Updated DateTime 5 162.56 cm 39.7 kg/m2 576880. 84 g 76 /min 93 % 124/70 mm[Hg] Fredi Khanna formerly [facility] [place] 5 17:35:00 Date Recorded Body height Body mass index (BMI) Body weight Heart rate Systolic And Diastolic Provider Name and Address Organization Details Last Updated DateTime 08/04/2024 162.56 cm 40 kg/m2 278665.0 2 g 62 /min 122/64 mm[Hg] [facility] 08/04/2024 11:12:22 Date Recorded Body height Body mass index (BMI) Body weight Oxygen saturation Heart rate Systolic And Diastolic Provider Name and Address Organization Details Last Updated DateTime 162.56 cm 39 kg/m2 491010. 47 g 92 % 72 /min 124/70 mm[Hg] [facility] [place] 10:58:01 Date Recorded Body height Body mass index (BMI) Body weight Heart rate Oxygen saturation Provider Name and Address Organization Details Last Updated DateTime 02/04/2024 162.56 cm 40.3 kg/m2 617154.2 1 g 67 /min 96 % Neno Wolfe MD [address], [facility] [address] [facility] 14:04:02 Social History Question Answer Notes LastModified by [employer] Details LastModified Time Tobacco Smoking Status Never Smoker Neno Wolfe MD [address], [place], [address] 02/04/2024 14:10:04 What Is Your Level Of Caffeine Consumption? None Information not available 05/12/2024 What Is Your Relationship Status? [email or web address] Information not available 02/04/2024 Sex: Female Functional Status Question Answer Note LastModified by Organizat ion Details LastModified Time Do you use any illicit or recreational drugs? No [email or web address] Information not available 05/12/2024 Do you or have you ever used any other forms of tobacco or nicotine? No [email or web address] Information not available 05/12/2024 What is your level of alcohol consumption? None [email or web address] Information not available 02/04/2024 Are you currently employed? No [email or web address] Information not available 02/04/2024 Mental Status None recorded. Family History Nothing Reported. Medical History Condition Response Coronary Artery Disease Y Thyroid Disease N Atrial Fibrillation N Depression N Congenital Heart Disease N COPD N Peripheral Arterial Disease N Pacemaker N Anemia N TIA N TESTS N Deep Vein Thrombosis N Diabetes N Cardiomyopathy N Blood Clot N Myocardial Infarction N Congestive Heart Failure (CHF) N Valvular Heart Disease N Hyperlipidemia Y Cancer N Stroke N Asthma N Atrial Flutter N Carotid Disease N Sleep Apnea N High Cholesterol N Aortic Aneurysm N Warfarin Management N Sleep Disorder N GERD/Reflux N Neurologic Disorder N Liver Disease N Valvular Abnormalities N Sickle Cell Disease N Heart Disease N Arrhythmia N Hypertension Y Kidney Disease N Hematologic Disease N Gynecological HistoryNo gynecological history recorded. Obstetrics History GPAL:G 0 P 0 0 0 0 Past Encounters Encounter ID Performer Location Encounter Start Date Encounter Closed Date Diagnosis/Indication Diagnosis SNOMED-CT Code Diagnosis ICD10 Code Diagnosis IMO Codes Diagnosis Note [id number] Neno Wolfe MD [facility] [address] [place] [address] 02/04/2024 12:27:22 02/04/2024 14:44:00 Angina co-occurrent and due to coronary arteriosclerosis 2198725632 2919260 I25.118 Aortocoron nader bypass graft present 037654895 Z95.1 Coronary stent patent 25 3215053 Z95.5 Hypothyroidism 04201555 E03.9 Hyperlipidemia 61616809 E78.5 Essential hypertension 78669000 I10 Obesity 001141014 E66.9 Prediabetes 757813030 R7 3.03 Endocrine/ metabolic screening 820664674 Z13.228 65440630 Diabetes m ellitus screening 382572459 Z13.1 891247 Iron defic iency screening 417495551 Z13.0 47702 Hyperlipid emia screening 937555636 Z13.220 407060 Thyroid di sorder screening 894612279 Z13.29 196668 Urine scre ening for protein 153294363 Z13.89 018836 [id number] Neno Wolfe MD [facility] [address] [place] [address] 05/12/2024 16:53:34 05/12/2024 18:21:45 Angina co-occurrent and due to coronary arteriosclerosis 0443362655 7709382 I25.118 Aortocoron nader bypass graft present 835475507 Z95.1 Coronary stent patent 25 0342848 Z95.5 Hypothyroidism 39133719 E03.9 Hyperlipidemia 62210255 E78.5 Essential hypertension 69203225 I10 Obesity 120879139 E66.9 Prediabetes 221826278 R7 3.03 Endocrine/ metabolic screening 813624803 Z13.228 63487528 Diabetes m ellitus screening 249533505 Z13.1 716937 Iron defic iency screening 544493904 Z13.0 66608 Hyperlipid emia screening 119628790 Z13.220 930370 Thyroid di sorder screening 133259376 Z13.29 635743 Urine scre ening for protein 549993588 Z13.89 383549 [id number] Neno Wolfe MD [facility] [address] [place] [address] 08/04/2024 10:49:05 08/04/2024 11:56:15 Angina co-occurrent and due to coronary arteriosclerosis 5913815373 5704768 I25.118 Aortocoron nader bypass graft present 002886143 Z95.1 Coronary stent patent 25 8422384 Z95.5 Hypothyroidism 02392160 E03.9 Hyperlipidemia 98012581 E78.5 Essential hypertension 03259191 I10 Obesity 486159751 E66.9 Prediabetes 926847512 R7 3.03 Endocrine/ metabolic screening 509370143 Z13.228 39607274 Diabetes m ellitus screening 198597189 Z13.1 468197 Iron defic iency screening 341378919 Z13.0 38324 Hyperlipid emia screening 535730424 Z13.220 866924 Thyroid di sorder screening 639630454 Z13.29 679996 Urine scre ening for protein 710301776 Z13.89 422640 [id number] Neno Wolfe MD [facility] [address] [place] [address] 02/02/2025 10:42:17 02/02/2025 11:52:32 Angina co-occurrent and due to coronary arteriosclerosis 0517413344 6649393 I25.118 Aortocoron nader bypass graft present 667719529 Z95.1 Coronary stent patent 25 9662213 Z95.5 Hypothyroidism 14678990 E03.9 Hyperlipidemia 64328478 E78.5 Essential hypertension 14196032 I10 Obesity 025782505 E66.9 Prediabetes 517157156 R7 3.03 Endocrine/ metabolic screening 915486913 Z13.228 08763996 Diabetes m ellitus screening 714043702 Z13.1 240396 Iron defic iency screening 251410272 Z13.0 31353 Hyperlipid emia screening 478080283 Z13.220 880683 Thyroid di sorder screening 094354814 Z13.29 625957 Urine scre ening for protein 284754333 Z13.89 010671 Health Concerns Section Related Observation LastModified by Organization Detai ls LastModified Time None Recorded Concern Status LastModified by Organization Details LastModified Time None Recorded Advance Directives Directive None Recorded Payers Insurance Date Sequence Insurance Name Policy Number Policy Gamez Covered Member ID Gamez Member ID Guarantor Name 01/30/2025 1 [employer] (MEDICARE REPLACEMEN T/ADVANTAG E - HMO) [id number] Emily malone [id number] Emily Jeffrey 02/02/2025 1 [employer] (MEDICARE REPLACEMEN T/ADVANTAG E - PPO) [id number] Emily malone [id number] Emily Jeffrey Notes Date Note Type Note Provider Name and Address Organization Details Recorded Time 02/04/2024 text/html 72 year old morbidly obese white female with HTN, HLD, preDM/IFG, CKD, hypothyroidism,prior failed PCI/emergency CABG 1995, PCI 2005, ischemic CM, and hypothyroidism here for follow up03/06 echo LVEF 30-35%/ROSY 1.3 cm21-06/05 had the followin. renal u/s normal2. carotid u/s normal3. PET ILMI with septal ischemia07/06 cor CTA patent ABARCA ro LAD/occluded [place] vessels/normal over had the followin. REN bilateral plaque2. LEV normal05/10 had the followin. MUGA LVEDD 263 cc/LVEF 39%2. echo LVEF 45-50% with mod AR/MR3. PET infero-apical lateral wall DE with mild per-infarction lateral ischemia (old defect)4. renal u/s bilateral hydronephrosis08/09 had the followin. telemetry normal2. echo LVEF 35-40% with moderate MR/mild AI3. PET mild marvin-infarction ischemia in inferior and lateral love and infarction in inferior wall (old defect) MD [address], [place], [address], [facility] [place] 02/04/2024 14:37:29 05/12/2024 text/html 72 year old morbidly obese white female with HTN, HLD, preDM/IFG, CKD, hypothyroidism,prior failed PCI/emergency CABG 1995, PCI 2005, ischemic CM, and hypothyroidism here for follow up03/06 echo LVEF 30-35%/ROSY 1.3 cm21-06/05 had the followin. renal u/s normal2. carotid u/s normal3. PET ILMI with septal ischemia07/06 cor CTA patent ABARCA ro LAD/occluded [place] vessels/normal over read12/07 had the followin. REN bilateral plaque2. LEV normal05/10 had the followin. MUGA LVEDD 263 cc/LVEF 39%2. echo LVEF 45-50% with mod AR/MR3. PET infero-apical lateral wall DE with mild per-infarction lateral ischemia (old defect)4. renal u/s bilateral hydronephrosis08/09 had the followin. telemetry normal2. echo LVEF 35-40% with moderate MR/mild AI3. PET mild marvin-infarction ischemia in inferior and lateral love and infarction in inferior wall (old defect) Fredi cornejo, formerly [facility] [place] 05/12/2024 20:23:15 08/04/2024 text/html 73 year old morbidly obese white female with HTN, HLD, preDM/IFG, CKD, hypothyroidism,prior failed PCI/emergency CABG 1995, PCI 2005, ischemic CM, and hypothyroidism here for follow up03/06 echo LVEF 30-35%/ROSY 1.3 cm21-06/05 had the followin. renal u/s normal2. carotid u/s normal3. PET ILMI with septal ischemia07/06 cor CTA patent ABARCA ro LAD/occluded [place] vessels/normal over read12/07 had the followin. REN bilateral plaque2. LEV normal05/10 had the followin. MUGA LVEDD 263 cc/LVEF 39%2. echo LVEF 45-50% with mod AR/MR3. PET infero-apical lateral wall DE with mild per-infarction lateral ischemia (old defect)4. renal u/s bilateral hydronephrosis08/09 had the followin. telemetry normal2. echo LVEF 35-40% with moderate MR/mild AI3. PET mild marvin-infarction ischemia in inferior and lateral love and infarction in inferior wall (old defect) Neno Wolfe MD [address], [place], [address], [facility] [place] 08/04/2024 11:38:27 02/02/2025 text/html 74 year old morbidly obese white female with HTN, HLD, preDM/IFG, CKD, hypothyroidism,prior failed PCI/emergency CABG 1995, PCI 2005, ischemic CM, and hypothyroidism here for follow up03/06 echo LVEF 30-35%/ROSY 1.3 cm2-06/05 had the followin. renal u/s normal2. carotid u/s normal3. PET ILMI with septal ischemia07/06 cor CTA patent ABARCA ro LAD/occluded [place] vessels/normal over read12/07 had the followin. REN bilateral plaque2. LEV normal05/10 had the followin. MUGA LVEDD 263 cc/LVEF 39%2. echo LVEF 45-50% with mod AR/MR3. PET infero-apical lateral wall DE with mild per-infarction lateral ischemia (old defect)4. renal u/s bilateral hydronephrosis08/09 had the followin. telemetry normal2. echo LVEF 35-40% with moderate MR/mild AI3. PET mild marvin-infarction ischemia in inferior and lateral love and infarction in inferior wall (old defect) Neno Wolfe MD [address], [place], [address], [facility] [place] 02/02/2025 11:26:46 OBGyn Episode No OBEpisode recorded.
--- OUTSIDE RECORDS SUMMARY | 2025-03-16 11:26 | XMS_ITS | Continuity of Care Document ---
Author Organization [place] [facility], [facility] Address [address] [place] [address] Care Team Providers Care Procedures Rn Name Role Phone MARIANACLEOIO Primary Care Provider [phone] Assessment No assessment recorded. Plan of Treatment Reminders Order Date Submit Date Provider Last Modified By Organization Details Last Modified Time Details Appointments FOLLOW UP 2025 08:00A Enrrique Wolfe MD Not available Not available Not available Lab urinalysi s, complete 2024 025 [facility], [address], [place], [address], 02/02/2025 11:27:28 microalbu min/creat inine, mass ratio, urine 2024 025 [facility], [address], [place], [address], 02/02/2025 11:27:27 lipid panel, serum 2024 025 [facility], [address], [place], [address], 02/02/2025 11:27:28 lipoprote in (A), serum 2024 025 [facility], [address], [place], [address], 02/02/2025 11:27:29 CRP, high sensitivi ty, serum or plasma 2024 025 [facility], [address], [place], [address], 02/02/2025 11:27:26 CMP, serum or plasma 2024 [facility], [address], [place], [address], 02/02/2025 11:27:26 CBC w/ auto diff 2024 [facility], [address], [facility] [address], [place], [address], 02/02/2025 11:27:25 unlisted lab - iron, TIBC and ferritin panel [address] [facility], [address], [facility] [address], [place], [address], 02/02/2025 11:27:29 TSH + free T4, serum 2024 025 [facility], [address], [facility] [address], [place], [address], 02/02/2025 11:27:25 HbA1c (hemoglob in A1c), blood 2024 025 [facility], [address], [facility] [address], [place], [address], 02/02/2025 11:27:27 Referral None recorded. Procedures None recorded. Surgeries None recorded. Imaging electroca rdiogram 2024 [email or web address] [facility], [address], [place], [address], 02/02/2025 11:52:32 Medication Orders None recorded. Patient TargetsNo targets recorded. Patient Instructions Encounter Date Encounter Id Patient Instructions Last Modified By Organization Details Last Modified Time 02/02/2025 [id number] HTN, HLD, preDM, hypothyroidism, CKD, and CAD/CM - stable Stopped metformin, colchicine, torsemide and potassium Add digoxin Does not want to change to Entresto even though generic because valsartan even cheaper GLP-1s too expensive Give SGLT2i samples as drug tariffs increased mcguire of dapagliflozin [place] for eye surgery Son of unvaccinated COVID [email or web address] Not available 02/02/2025 11:26:32 Reason for Referral None Reported. Results Created Date Observation Date Name Description Value Unit Range Abnormal Flag Note LastModifiedBy Organization Detail LastModifiedTime 01/24/2001/24/2025 URINA LYSIS , ROUTI NE specific gravity 1.013 1.005- 1.030 normal Not Available [facility] ([facility]) [address] [place], [address], 01/24/2025 15:09:02 01/24/2001/24/2025 URINA LYSIS , ROUTI NE pH 6.0 5.0-7. 5 normal Not Available [facility] ([facility]) [address] [place], [address], 01/24/2025 15:09:02 01/24/20 25 01/24/2025 URINA LYSIS , ROUTI NE urine-color Yellow yellow Not Available [facility]) [address] [place], [address], 01/24/2025 15:09:02 01/24/2001/24/2025 URINA LYSIS , ROUTI NE appearance Clear clear Not Available [facility] ([facility]) [address] [place], [address], 01/24/2025 15:09:02 01/24/2001/24/2025 URINA LYSIS , ROUTI NE WBC esterase 1+ negati ve abnormal Not Available [facility] ([facility]) [address] [place], [address], 01/24/2025 15:09:02 01/24/20 25 01/24/2025 URINA LYSIS , ROUTI NE protein Negati ve negati ve/tra ce Not Available [facility] ([facility]) [address] [facility], [place], [address], 01/24/2025 15:09:02 01/24/20 25 01/24/2025 URINA LYSIS , ROUTI NE glucose 1+ negati ve abnormal Not Available [facility] ([facility]) [address] [place], [address], 01/24/2025 15:09:02 01/24/20 25 01/24/2025 URINA LYSIS , ROUTI NE ketones Negati ve negati ve Not Available [facility] ([facility]) [address] [place], [address], 01/24/2025 15:09:02 01/24/20 25 01/24/2025 URINA LYSIS , ROUTI NE occult blood Negati ve negati ve Not Available [facility] ([facility]) [address] [place], [address], 01/24/2025 15:09:02 01/24/20 25 01/24/2025 URINA LYSIS , ROUTI NE bilirubin Negati ve negati ve Not Available [facility] ([facility]) [address] [place], [address], 01/24/2025 15:09:02 01/24/20 25 01/24/2025 URINA LYSIS , ROUTI NE urobilinogen ,semi-qn 0.2 mg/dL 0.2-1. 0 normal Not Available [facility] ([facility]) [address] [place], [address], 01/24/2025 15:09:02 01/24/20 25 01/24/2025 URINA LYSIS , ROUTI NE nitrite, urine Negati ve negati ve Not Available [facility] ([facility]) [address] [facility], [place], [address], 01/24/2025 15:09:02 01/24/20 25 01/24/2025 URINA LYSIS , ROUTI NE microscopic examination See below: Micro alix c was indic ated and was perfo rmed. Not Available [facility] ([facility]) [address] [facility], [place], [address], 01/24/2025 15:09:02 01/24/20 25 01/24/2025 URINA LYSIS , ROUTI NE WBC None seen /hpf 0 - 5 Not Available [facility] ([facility]) [address] [facility], [place], [address], 01/24/2025 15:09:02 01/24/20 25 01/24/2025 URINA LYSIS , ROUTI NE RBC None seen /hpf 0 - 2 Not Available [facility] ([facility]) [address] [facility], [place], [address], 01/24/2025 15:09:02 01/24/20 25 01/24/2025 URINA LYSIS , ROUTI NE epithelial cells (non renal) 0-10 /hpf 0 - 10 Not Available [facility] ([facility]) [address] [facility], [place], [address], 01/24/2025 15:09:02 01/24/20 25 01/24/2025 URINA LYSIS , ROUTI NE epithelial cells (renal) ASSESSMENT RN Not Available [facility] ([facility]) [address], [place], [address], 01/24/2025 15:09:02 01/24/20 25 01/24/2025 URINA LYSIS , ROUTI NE casts None seen /lpf none seen Not Available [facility] ([facility]) [address] [facility], [place], [address], 01/24/2025 15:09:02 01/24/20 25 01/24/2025 URINA LYSIS , ROUTI NE cast type ASSESSMENT RN Not Available [facility] ([facility]) [address], [place], [address], 01/24/2025 15:09:02 01/24/20 25 01/24/2025 URINA LYSIS , ROUTI NE crystals ASSESSMENT RN Not Available [facility] ([facility]) [address] [facility], [place], [address], 01/24/2025 15:09:02 01/24/20 25 01/24/2025 URINA LYSIS , ROUTI NE crystal type ASSESSMENT RN Not Available [facility]) [address], [place], [address], 01/24/2025 15:09:02 01/24/20 25 01/24/2025 URINA LYSIS , ROUTI NE mucus threads ASSESSMENT RN Not Available [facility] ([facility]) [address] [facility], [place], [address], 01/24/2025 15:09:02 01/24/20 25 01/24/2025 URINA LYSIS , ROUTI NE bacteria None seen none seen/f ew Not Available [facility] ([facility]) [address] [facility] [address], [place], [address], 01/24/2025 15:09:02 01/24/20 25 01/24/2025 URINA LYSIS , ROUTI NE yeast ASSESSMENT RN Not Available [facility] ([facility]) [address] [facility], [place], [address], 01/24/2025 15:09:02 01/24/20 25 01/24/2025 URINA LYSIS , ROUTI NE trichomonas ASSESSMENT RN Not Available [facility]) [address] [facility], [place], [address], 01/24/2025 15:09:02 01/24/20 25 01/24/2025 URINA LYSIS , ROUTI NE comment ASSESSMENT RN Not Available [facility] ([facility]) [address] [facility], [place], [address], 01/24/2025 15:09:02 01/24/20 25 01/24/2025 CBC, PLATE LET, NO DIFFE RENTI AL WBC 6.1 x10e3 /uL 3.4-10 .8 normal Not Available [facility] ([facility]) [address] [facility], [place], [address], 01/24/2025 15:09:03 01/24/20 25 01/24/2025 CBC, PLATE LET, NO DIFFE RENTI AL RBC 5.33 x10e6 /uL 3.77-5 .28 above high normal Not Available [facility] ([facility]) [address], [place], [address], 01/24/2025 15:09:03 01/24/20 25 01/24/2025 CBC, PLATE LET, NO DIFFE RENTI AL hemoglobin 15.2 g/dL 11.1-1 5.9 normal Not Available [facility] ([facility]) [address], [place], [address], 01/24/2025 15:09:03 01/24/20 25 01/24/2025 CBC, PLATE LET, NO DIFFE RENTI AL hematocrit 48.7 % 34.0-4 6.6 above high normal Not Available [facility] ([facility]) [address] [place], [address], 01/24/2025 15:09:03 01/24/2001/24/2025 CBC, PLATE LET, NO DIFFE RENTI AL MCV 91 fL 79-97 normal Not Available [facility] ([facility]) [address] [facility] [address], [place], [address], 01/24/2025 15:09:03 01/24/20 25 01/24/2025 CBC, PLATE LET, NO DIFFE RENTI AL MCH 28.5 pg 26.6-3 3.0 normal Not Available [facility] ([facility]) [address] [facility] [address], [place], [address], 01/24/2025 15:09:03 01/24/20 25 01/24/2025 CBC, PLATE LET, NO DIFFE RENTI AL MCHC 31.2 g/dL 31.5-3 5.7 below low normal Not Available [facility] ([facility]) [address] [place], [address], 01/24/2025 15:09:03 01/24/20 25 01/24/2025 CBC, PLATE LET, NO DIFFE RENTI AL RDW 13.2 % 11.7-1 5.4 Not Available [facility] ([facility]) [address] [facility], [place], [address], 01/24/2025 15:09:03 01/24/20 25 01/24/2025 CBC, PLATE LET, NO DIFFE RENTI AL platelets 221 x10e3 /uL 150-45 0 normal Not Available [facility] ([facility]) [address] [place], [address], 01/24/2025 15:09:03 01/24/20 25 01/24/2025 CBC, PLATE LET, NO DIFFE RENTI AL NRBC ASSESSMENT RN Not Available [facility] ([facility]) [address] [place], [address], 01/24/2025 15:09:03 01/24/20 25 01/24/2025 BASIC METAB OLIC PANEL (8) glucose 83 mg/dL 70-99 normal Not Available [facility] ([facility]) [address] [place], [address], 01/24/2025 15:09:04 01/24/20 25 01/24/2025 BASIC METAB OLIC PANEL (8) BUN 19 mg/dL 8-27 normal Not Available [facility] ([facility]) [address] [place], [address], 01/24/2025 15:09:04 01/24/20 25 01/24/2025 BASIC METAB OLIC PANEL (8) creatinine 1.25 mg/dL 0.57-1 .00 above high normal Not Available [facility] ([facility]) [address] [facility] [place], [address], 01/24/2025 15:09:04 01/24/20 25 01/24/2025 BASIC METAB OLIC PANEL (8) eGFR 45 mL/mi n/1.7 3 >59 below low normal Not Available [facility] ([facility]) [address] [facility] [place], [address], 01/24/2025 15:09:04 01/24/20 25 01/24/2025 BASIC METAB OLIC PANEL (8) BUN/creatini ne ratio 15 12-28 normal Not Available [facility] ([facility]) [address] [facility] [address], [place], [address], 01/24/2025 15:09:04 01/24/20 25 01/24/2025 BASIC METAB OLIC PANEL (8) sodium 144 mmol/ L 134-14 4 normal Not Available [facility] ([facility]) [address] [facility] [place], [address], 01/24/2025 15:09:04 01/24/20 25 01/24/2025 BASIC METAB OLIC PANEL (8) potassium 4.0 mmol/ L 3.5-5. 2 normal Not Available [facility] ([facility]) [address] [facility] [place], [address], 01/24/2025 15:09:04 01/24/20 25 01/24/2025 BASIC METAB OLIC PANEL (8) chloride 108 mmol/ L 96-106 above high normal Not Available [facility] ([facility]) [address] [facility] [place], [address], 01/24/2025 15:09:04 01/24/20 25 01/24/2025 BASIC METAB OLIC PANEL (8) carbon dioxide, total 22 mmol/ L 20-29 normal Not Available [facility] ([facility]) [address] [facility] [place], [address], 01/24/2025 15:09:04 01/24/20 25 01/24/2025 BASIC METAB OLIC PANEL (8) calcium 9.7 mg/dL 8.7-10 .3 normal Not Available [facility] ([facility]) [address] [facility] [place], [address], 01/24/2025 15:09:04 01/24/20 25 01/24/2025 HEPAT IC FUNCT ION PANEL (7) protein, total 7.1 g/dL 6.0-8. 5 normal Not Available [facility] ([facility]) [address] [facility] [place], [address], 01/24/2025 15:09:04 01/24/20 25 01/24/2025 HEPAT IC FUNCT ION PANEL (7) albumin 4.4 g/dL 3.8-4. 8 normal Not Available [facility] ([facility]) [address] [facility] [place], [address], 01/24/2025 15:09:04 01/24/20 25 01/24/2025 HEPAT IC FUNCT ION PANEL (7) bilirubin, total 0.5 mg/dL 0.0-1. 2 normal Not Available [facility] ([facility]) [address] [facility] [place], [address], 01/24/2025 15:09:04 01/24/20 25 01/24/2025 HEPAT IC FUNCT ION PANEL (7) bilirubin, direct 0.16 mg/dL 0.00-0 .40 normal Not Available [facility] ([facility]) [address] [facility] [place], [address], 01/24/2025 15:09:04 01/24/20 25 01/24/2025 HEPAT IC FUNCT ION PANEL (7) alkaline phosphatase 169 IU/L 49-135 above high normal Not Available [facility] ([facility]) [address] [place], [address], 01/24/2025 15:09:04 01/24/20 25 01/24/2025 HEPAT IC FUNCT ION PANEL (7) AST (SGOT) 18 IU/L 0-40 normal Not Available [facility] ([facility]) [address] [place], [address], 01/24/2025 15:09:04 01/24/20 25 01/24/2025 HEPAT IC FUNCT ION PANEL (7) ALT (SGPT) 14 IU/L 0-32 normal Not Available [facility] ([facility]) [address] [place], [address], 01/24/2025 15:09:04 01/24/20 25 01/24/2025 LIPID PANEL cholesterol, total 118 mg/dL 100-19 9 normal Not Available [facility] ([facility]) [address] [place], [address], 01/24/2025 15:09:05 01/24/20 25 01/24/2025 LIPID PANEL triglyceride s 149 mg/dL 0-149 normal Not Available [facility]) [address] [place], [address], 01/24/2025 15:09:05 01/24/20 25 01/24/2025 LIPID PANEL HDL cholesterol 53 mg/dL >39 normal Not Available [facility]) [address] [place], [address], 01/24/2025 15:09:05 01/24/20 25 01/24/2025 LIPID PANEL VLDL cholesterol tyrone 25 mg/dL 5-40 Not Available [facility]) [address] [place], [address], 01/24/2025 15:09:05 01/24/20 25 01/24/2025 LIPID PANEL LDL chol calc ([facility]) 40 mg/dL 0-99 Not Available [facility] ([facility]) [address] [facility] [address], [place], [address], 01/24/2025 15:09:05 01/24/20 25 01/24/2025 LIPID PANEL LDL calc comment: ASSESSMENT RN Not Available [facility] ([facility]) [address] [facility] [address], [place], [address], 01/24/2025 15:09:05 01/24/20 25 01/24/2025 IRON AND TIBC iron bind.cap.(TI BC) 308 ug/dL 250-45 0 normal Not Available [facility] ([facility]) [address] [place], [address], 01/24/2025 15:09:05 01/24/20 25 01/24/2025 IRON AND TIBC UIBC 228 ug/dL 118-36 9 normal Not Available [facility] ([facility]) [address] [facility] [address], [place], [address], 01/24/2025 15:09:05 01/24/20 25 01/24/2025 IRON AND TIBC iron 80 ug/dL 27-139 normal Not Available [facility] ([facility]) [address] [place], [address], 01/24/2025 15:09:05 01/24/20 25 01/24/2025 IRON AND TIBC iron saturation 26 % 15-55 normal Not Available [facility] ([facility]) [address] [place], [address], 01/24/2025 15:09:05 01/24/20 25 01/24/2025 ALBUM IN/CR EATIN INE RATIO ,URIN E creatinine, urine 47.1 mg/dL not estab. normal Not Available [facility] ([facility]) [address] [place], [address], 01/24/2025 15:09:06 01/24/20 25 01/24/2025 ALBUM IN/CR EATIN INE RATIO ,URIN E albumin, urine <3.0 ug/mL not estab. Not Available [facility] ([facility]) [address] [place], [address], 01/24/2025 15:09:06 01/24/20 25 01/24/2025 ALBUM IN/CR EATIN INE RATIO ,URIN E alb/creat ratio <6 mg/g_ creat 0-29 Julissa l: 0 - 29 Moder ately incre ased: 30 - 300 Sever rozina incre ased: >300 Not Available [facility] ([facility]) [address] [place], [address], 01/24/2025 15:09:06 01/24/20 25 01/24/2025 HEMOG LOBIN A1C hemoglobin A1C 5.3 % 4.8-5. 6 normal Predi abete s: 5.7 - 6.4 Diabe darcy: >6.4 Glyce mikey contr ol for adult s with diabe darcy: <7.0 Not Available [facility] ([facility]) [address] [place], [address], 01/24/2025 15:09:06 01/24/20 25 01/24/2025 THYRO XINE (T4) FREE, DIREC T T4,free(dire ct) 1.17 NG/dL 0.82-1 .77 normal Not Available [facility] ([facility]) [address] [place], [address], 01/24/2025 15:09:06 01/24/20 25 01/24/2025 TSH TSH 1.220 uIU/m L 0.450- 4.500 normal Not Available [facility] ([facility]) [address] [place], [address], 01/24/2025 15:09:07 01/24/20 25 01/24/2025 C-KEY CTIVE PROTE IN, QUANT C-reactive protein, quant 2 mg/L 0-10 normal Not Available [facility]) [address] [facility], [place], [address], 01/24/2025 15:09:07 01/24/20 25 01/24/2025 MORAIMA TIN ferritin 40 NG/mL 15-150 normal Not Available [facility] ([facility]) [address], [place], [address], 01/24/2025 15:09:07 01/31/20 elect rocar diogr am No observ ation record ed. [email or web address] [facility] [address], [place], [address], 02/02/2025 10:52:03 02/03/2002/02/2025 elect rocar diogr am No observ ation record ed. [email or web address] [facility] [address], [place], [address], 02/02/2025 15:08:41 02/05/20 elect rocar diogr am No observ ation record ed. [facility] [address], [place], [address], 02/04/2025 10:03:15 Result Notes None recorded. Problems Name Problem SNOMED Code Status Onset Date Resolution Date Notes Provider Name and Address Organization Details Recorded Time [facility] hyperten chanda 16533112 Active Hyperten chanda Not Available [facility] 19:26:53 Prediabe darcy 869462428 Active Prediabe darcy Not Available [facility] 19:26:53 Hyperlip idemia 59862371 Completed 10/02/2024 Hyperlip idema Hy perlipid MD Alva [address], [place], [address] , [facility] 5 15:38:19 Coronary stent patent 721553083 Active Coronary Stenting Not Available [facility] 4 19:26:54 Angina co-occur rent and due to coronary arterios clerosis 94983625186 263032 Active Coronary atherosc lerosis of [place] coronary artery with other forms of angina pectoris Not Available [facility] 19:26:55 Renal function tests outside referenc e range 498948805 Active Abnormal results of kidney function studies Not Available [facility] 19:26:55 Hypothyr oidism 12318443 Active Hypothyr oidism, unspecif ied Not Available [facility] 19:26:55 Obstruct conrado sleep apnea syndrome 53119298 Completed 10/02/2024 Obstruct conrado sleep apnea (adult) (pediatr ic) Not Available [facility] 5 12:35:14 Electroc ardiogra m abnormal 522824841 Active Abnormal EKG Not Available [facility] 19:26:56 Pre-surg iván testing Active Encounte r for preproce dural laborato ry examinat ion Not Available [facility] 4 19:26:56 Cardiomy opathy 28768665 Completed 10/02/2024 Cardiomy opathy Not Available [facility] 5 12:35:16 Severe obesity 56484473336 104 Active Obesity Morbid (severe) , due to excess calories Not Available [facility] 4 19:26:58 Fatigue 37329662 Completed 10/02/2024 Other fatigue Not Available [facility] 5 13:15:15 Aortocor onary bypass graft present 892078060 Active CABG Not Available [facility] 4 19:26:58 Periodic limb movement disorder 825001568 Completed 10/02/2024 Periodic limb movement disorder Not Available [facility] 5 12:35:13 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-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 m current 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 of 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, 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 Not Available [facility] 4 19:27:00 Drowsy 611469308 Completed 10/02/2024 Somnolen ce Not Available [facility] 5 13:15:09 Paroxysm al atrial fibrilla tion 642867727 Active Atrial fibrilla tion, paroxysm al Not Available [facility] 4 19:27:00 Obesity 910857132 Active Obesity Not Available [facility] 4 19:27:01 Preopera tive cardiova scular examinat ion Active Encounte r for preproce dural cardiova scular examinat ion Not Available [facility] 4 19:27:02 Snoring 21215663 Completed 10/02/2024 Snoring Not Available [facility] 5 13:15:11 Heart murmur 43691838 Active Cardiac Murmur Not Available [facility] 5 13:15:10 Hyperlip idemia 48486290 Active 2024 Hyperlip idema Hy perlipid jermaine Wolfe MD [address], [place], [address] [facility] 5 15:38:19 Problem Notes None recorded. Procedures Surgical History Date Name Laterality Status Provider Name and Address Organization Details Recorded Time 05/12/19 25 EKG - E&M visit completed Fredi Khanna [facility] 05/12/2024 17:24:54 operative procedure on hand completed [facility] 01/31/2024 22:09:29 Cholecystectomy completed [facility] 01/31/2024 22:09:42 open heart surgery completed [facility] 01/31/2024 22:10:01 total hysterectomy completed [facility] 01/31/2024 22:10:21 Stent completed [facility] 01/31/2024 22:10:42 Imaging Results None recorded. Procedure Notes None recorded. Medical Equipment None Reported. Allergies Allergen ID Allergen Name Allergen Category Reaction Reaction Severity Criticality Documentation Date Start Date Code Code System Note Provider Name and Address Organization Details Recorded Time 123761 Shellfish (substanc e) food,medi cation Not available Not available Not available 01/30/20252024 08775 9006 SNOMED unrec ogniz ed react ion (text : Unkno wn, code: [id number]) (from exter nal sourc e) Not Available [facility] - prod 5 19:05:45 460243 cephalexi n monohydra te medicatio n Not available Not available Not available 01/30/2025 94513 8 RxNorm Not Available [facility] - prod 19:12:07 382809 amoxicill in trihydrat e medicatio n Not available Not available Not available 01/30/2025 17164 8 RxNorm Not Available [facility] External Data Service - prod 5 19:12:07 19171 shellfish derived food,medi cation Not available Not available Not available 01/09/2024 Not Available [facility] 4 12:38:20 06458 cephalexi n medicatio n Not available Not available Not available 01/09/2024 2231 RxNorm Not Available [facility] 4 12:38:20 91892 amoxicill in medicatio n Not available Not available Not available 01/09/2024 723 RxNorm Not Available [facility] 4 12:38:20 17194 azithromy iron medicatio n Not available Not available Not available 01/09/2024 19896 RxNorm Not Available [facility] 4 12:38:20 Medications Name Sig Start [...] Details Last Updated DateTime 5 162.56 cm 39 kg/m2 725819. 47 g 92 % 72 /min 124/70 mm[Hg] Fredi Khanna [facility] 10:58:01 Social History Question Answer Notes LastModified by Organizat ion Details LastModified Time Tobacco Smoking Status Never Smoker Neno Wolfe MD [address], [place], [address], [facility] 02/04/2024 14:10:04 What Is Your Level Of Caffeine Consumption? None [email or web address] Information not available 05/12/2024 What Is Your Relationship Status? [email or web address] Information not available 02/04/2024 Sex: Female Functional Status Question Answer Note LastModified by Organizat ion Details LastModified Time Do you use any illicit or recreational drugs? No [email or web address] Information not available 05/12/2024 Do you or have you ever used any other forms of tobacco or nicotine? No [email or web address] Information not available 05/12/2024 What is your level of alcohol consumption? None [email or web address] Information not available 02/04/2024 Are you currently employed? No [email or web address] Information not available 02/04/2024 Mental Status None [...] ICD10 Code Diagnosis IMO Codes Diagnosis Note [id number] Neno Wolfe MD [facility] [address] [place] [address] 02/02/2025 10:42:17 02/02/2025 11:52:32 Angina co-occurrent and due to coronary arteriosclerosis [id number] I25.118 Aortocoron nader bypass graft present 577388572 Z95.1 Coronary stent patent 25 4592146 Z95.5 Hypothyroidism 17137019 E03.9 Hyperlipidemia 58378197 E78.5 Essential hypertension 74546546 I10 Obesity 651670056 E66.9 Prediabetes 724131579 R7 3.03 Endocrine/ metabolic screening 445997005 Z13.228 10625777 Diabetes m ellitus screening 981052653 Z13.1 345174 Iron defic iency screening 314111609 Z13.0 91553 Hyperlipid emia screening 590777987 Z13.220 817447 Thyroid di sorder screening 770614699 Z13.29 276929 Urine scre ening for protein 160411838 Z13.89 102022 Health Concerns Section Related Observation LastModified by Organization Detai ls LastModified Time None Recorded Concern Status LastModified by Organization Details LastModified Time None Recorded Payers Encounter Date Sequence Insurance Name Policy Number Policy Gamez Covered Member ID Gamez Member ID Guarantor Name 02/02/2025 1 [employer] (MEDICARE REPLACEMEN T/ADVANTAG E - PPO) [id number] Emily Jeffrey [id number] Emily Jeffrey Notes Date Note Type Note Provider Name and Address Organization Details Recorded Time 02/02/2025 text/html 74 year old morbidly obese white female with HTN, HLD, preDM/IFG, CKD, hypothyroidism,prior failed PCI/emergency CABG 1995, PCI 2005, ischemic CM, and hypothyroidism here for follow up03/06 echo LVEF 30-35%/ROSY 1.3 cm21-06/05 had the followin. renal u/s normal2. carotid u/s normal3. PET ILMI with septal ischemia07/06 cor CTA patent ABARCA ro LAD/occluded [place] vessels/normal over read12/07 had the followin. REN bilateral plaque2. LEV normal05/10 had the followin. MUGA LVEDD 263 cc/LVEF 39%2. echo LVEF 45-50% with mod AR/MR3. PET infero-apical lateral wall [place] with mild per-infarction lateral ischemia (old defect)4. renal u/s bilateral hydronephrosis08/09 had the followin. telemetry normal2. echo LVEF 35-40% with moderate MR/mild AI3. PET mild marvin-infarction ischemia in inferior and lateral love and infarction in inferior wall (old defect) Neno Wolfe MD [address], [place], [address], [facility] 02/02/2025 11:26:46 OBGyn Episode No OBEpisode recorded.
--- OUTSIDE RECORDS SUMMARY | 2025-03-16 11:26 | XMS_ITS | Clinical Summary ---
Author Organization [facility] Address [address] [place] [address] Phone Care Team Providers Care Medical Photographer Name Role Phone Unavailable Primary Care Provider Unavailabl e Allergies Active Allergy Reactions Criticality Noted Date Comments Amoxicillin Itching 08/18/2022 Cephalexin Itching 08/18/2022 Shellfish Containing Products Itching 2022 Medications atorvastatin (LIPITOR) 40 mg Oral Tablet 3 Active celecoxib (CELEBREX) 200 mg Oral Capsule 3 Active chlorthalidone (HYGROTEN) 25 mg Oral Tablet 3 Active Dexlansoprazole (DEXILANT) 60 mg Oral Cap, Delayed Rel., Multiphasic Take 1 Capsule by mouth daily. 3 Active ezetimibe (ZETIA) 10 mg Oral Tablet 3 Active famotidine (PEPCID) 40 mg Oral Tablet 3 Active LEVOthyroxine (SYNTHROID) 200 mcg Oral Tablet 3 Active loratadine (CLARITIN) 10 mg Oral Tablet Take 10 mg by mouth daily. 3 Active omega-3 acid ethyl esters (LOVAZA) 1 gram Oral Capsule 3 Active sertraline (ZOLOFT) 50 mg Oral Tablet 3 Active sucralfate (CARAFATE) 1 gram Oral Tablet 3 Active temazepam (RESTORIL) 15 mg Oral Capsule TAKE 1 CAPSULE BY MOUTH EVERYDAY AT BEDTIME 3 Active valsartan (DIOVAN) 320 mg Oral Tablet 3 Active zonisamide (ZONEGRAN) 100 mg Oral Capsule 3 Active promethazine-dex tromethorphan (PROMETHAZINE-DM ) 6.25-15 mg/5 mL Oral Syrup Take 5 mL by mouth every 6 hours as needed. 118 mL 3 Active azelastine (ASTELIN) 137 mcg (0.1 %) Nasl Aerosol, [place] 2 Sprays in each nostril 2 times daily. Use in each nostril as directed 30 mL 3 Active Social History Tobacco Use Types Packs/Day Years Used Date Smoking Tobacco: Never Smokeless Tobacco: Never Tobacco Cessation:Counseling Given: Not Answered Comments No Sex and Gender Information Value Date Recorded Sex Assigned at Not on file Legal Sex Female 8:15 PM EDT Gender Identity Not on file Sexual Orientation Not on file Last Filed Vital Signs Vital Sign Reading Time Taken Comments Blood Pressure 148/84 08/18/2022 12:27 PM EDT Pulse 80 08/18/2022 12:27 PM EDT Temperature 36.8 C (98.3 F) 08/18/2022 12:27 PM EDT Respiratory Rate 20 08/18/2022 12:27 PM EDT Oxygen Saturation 99% 08/18/2022 12:27 PM EDT Inhaled Oxygen Concentration - - Weight 108.9 kg (240 lb) 08/18/2022 12:27 PM EDT Height 162.6 cm (5' 4 ) 08/18/2022 12:27 PM EDT Body Mass Index 41.2 08/18/2022 12:27 PM EDT Plan of Treatment Health Maintenance Due Date Last Done Comments Wellness Exam Medicare 1953 Hepatitis C Screening 11/05/1967 DTaP/TDaP/Td (1 - Tdap) 1968 Cologuard 1994 Colon Cancer Screening 1994 Colonoscopy 1994 FIT 1994 Sigmoidoscopy 1994 Virtual Colonography 1994 Pneumococcal Vaccine 50+ (1 of 1 - PCV) 11/05/1999 Zoster (1 of 2) 11/05/1999 Bone Density Screening 2014 RSV or 60+ (1 - 1-d ose 75+ series) 2024 COVID-19 Vaccine (1 2024-2 6 season) 2024 Influenza Vaccine (#1) 2024 Hepatitis B Vaccine Aged Out No longe r eligible based on patient's age to complete this topic Meningococcal B Vaccine Aged Out No l onger eligible based on patient's age to complete this topic Insurance [employer] MDR PPO REPLACE MR OUT OF NETWORK
--- OUTSIDE RECORDS SUMMARY | 2025-03-16 11:27 | XMS_ITS | Clinical Summary ---
Author Organization [facility] Address [address] [place] [address] Care Team Providers Care Counseling Services Manager Name Role Phone Pcp, Maggy Primary Care Provider Social History Tobacco Use Types Packs/Day Years Used Date Smoking Tobacco: Never Assessed Comments Unknown Sex and Gender Information Value Date Recorded Sex Assigned at Not on file Legal Sex Female 12:29 PM EST Gender Identity Not on file Sexual Orientation Not on file Plan of Treatment Not on file Medical Devices Not on file Insurance MEDICARE , JOSE DAVID [id number] Care Teams Counseling Services Manager Relationship Specialty Start Date End Date Pcp, Maggy PCP - General Family Medicine 02/02/20
--- OUTSIDE RECORDS SUMMARY | 2025-03-16 11:27 | XMS_ITS | Patient Health Record ---
Author Organization [facility] e Address [address] [place] [address] Care Team Providers Care Livestock Counter Name Role Phone Amando Carlson Primary Care Provider UnavailRex García Unavailable [phone] Fadia Do Unavailable [phone] Christel Vargas Unavailable [phone] Allergies Allergen (clinical drug ingredient) Drug/Non Drug Allergy documented on EMR Reaction Allergy Type Onset Date Status amoxicillin amoxicillin ReportDt: 016 Severity:Mild Drug Allergy Active cephalexin cephalexin ReportDt: 016 Severity:Mild Drug Allergy Active Shellfish (FN) Shellfish-derived Products Unknown Drug Allergy Active Reason For Referral No Information Medications Medication SIG (Take, Route, Frequency, Duration) Notes Start Date End Date Status Atorvastatin Calcium 40 MG Tablet Oral; Duration: 90 Days Active Voltaren 1 % Gel as directed Externally twice a day; Duration: 30 days Please dispense 1 tube per month. TY 12/10/2024 Active Chlorthalidone 25 MG Tablet Oral; Duration: 90 Days Active Lidocaine 5 % Patch 1 patch as needed Externally Once a day; Duration: 30 days 12/10/2024 Active Valsartan 320 MG Tablet Oral; Duration: 90 Days Active Celecoxib 200 MG Capsule 1 capsule with food Orally Once a day; Duration: 90 days Active Ezetimibe 10 MG Tablet Oral; Duration: 90 Days Active Diclofenac Sodium 1 % Gel 1 application Externally Twice a day; Duration: 30 days apply 2-4grams externally Q6hrs for 30 days 12/10/2024 Active Zonisamide 100 MG Capsule TAKE 4 CAPSULES ONCE DAILY Orally daily; Duration: 30 days 02/17/2025 06/17/2025 Active Celecoxib 200 MG Capsule 1 capsule with food Orally Once a day; Duration: 90 days 07/23/2025 Active Levothyroxine Sodium 50 MCG Tablet Oral; Duration: 90 Days Active Pantoprazole Sodium 40 MG Tablet Delayed Release 1 tablet Orally Once a day; Duration: 30 day(s) Active traZODone HCl 50 MG Tablet TAKE 1 TABLET BY MOUTH EVERYDAY AT BEDTIME Oral; Duration: 90 Days Active Lidocaine 5 % Patch 1-2 patches as needed Externally Once a day; Duration: 30 days 02/11/2025 Active Temazepam 15 MG Capsule TAKE 1 CAPSULE BY MOUTH EVERYDAY AT BEDTIME Oral; Duration: 30 Days Active Famotidine 40 MG Tablet Oral; Duration: 90 Days Active Lidocaine 5 % Patch Apply 1-3 patches TAA and remove after 12 hours Externally Once a day as needed; Duration: 30 days 08/10/2023 Active Xarelto 2.5 MG Tablet 1 tablet Orally Twice a day; Duration: 30 day(s) 08/10/2023 Active Social History Tobacco Use: Social History [...] other family members (parent s, children): No Problems Problem Type SNOMED Code ICD Code Onset Dates Problem Status W/U Status Risk Notes Problem Morbid obesity (disorder) (657184468) Morbid (severe) obesity due to excess calories (E66.01) Active confirmed Mig_new- Problem Localized, primary osteoarthritis of the shoulder region (815381285) Primary osteoarthritis, right shoulder (M19.011) Active confirmed Mig_new- Problem Pain of right shoulder region (finding) (6269235365) Pain in right shoulder (M25.511) Active confirmed Mig_new- Problem Solitary sacroiliitis (538879251) Sacroiliitis, not elsewhere classified (M46.1) Active confirmed Mig_new- Problem Cervical spondylosis without myelopathy (690218480) Spondylosis without myelopathy or radiculopathy, cervical region (M47.812) Active confirmed Mig_new- Problem Spinal stenosis in cervical region (83516395) Spinal stenosis, cervical region (M48.02) 018 Active confirmed Mig_new- Problem Cervicalgia (04442636) Cervicalgia (M54.2) Active confirmed Mig_new- Problem Neuralgia (66113017) Neuralgia and neuritis, unspecified (M79.2) Active confirmed Mig_new- Problem Pelvic and perineal pain (867474214) Pelvic and perineal pain (R10.2) Active confirmed Mig_new- Problem Osteoarthritis of knee (648333428) Bilateral primary osteoarthritis of knee (M17.0) Active confirmed Problem Primary osteoarthritis (666552562) Unilateral primary osteoarthritis, right knee (M17.11) Active confirmed Mig_new- Problem Lumbosacral spondylosis without myelopathy (50786667) Spondylosis without myelopathy or radiculopathy, lumbar region (M47.816) Active confirmed Mig_new- Problem Lumbosacral spondylosis without myelopathy (disorder) (18042587) Spondylosis without myelopathy or radiculopathy, lumbosacral region (M47.817) 016 Active confirmed Mig_new- Problem Degeneration of lumbar intervertebral disc (69369044) Other intervertebral disc degeneration, lumbar region (M51.36) 016 Active confirmed Problem Lumbar radiculopathy (303057524) Radiculopathy, lumbar region (M54.16) 016 Active confirmed Mig_new- Problem Spasm of back muscles (197012089) Muscle spasm of back (M62.830) Active confirmed Problem Spasm (92326845) Other muscle spasm (M62.838) Active confirmed Problem Trochanteric bursitis of left hip (436726175374530) Trochanteric bursitis, left hip (M70.62) Active confirmed Problem Long-term current use of drug therapy (206401203) Other chcf (current) drug therapy (Z79.899) Active confirmed Problem Cervical radiculopathy (72668130) Cervical radiculopathy (M54.12) Active confirmed Problem Localized, primary osteoarthritis of the pelvic region and thigh (115459535) Primary osteoarthritis of left hip (M16.12) Active confirmed Problem Osteoarthritis of knee (974470974) Primary osteoarthritis of right knee (M17.11) Active confirmed Problem Osteoarthritis of knee (263548574) Primary osteoarthritis of left knee (M17.12) Active confirmed Problem Pain in thoracic spine (552472099) Thoracic spine pain (M54.6) Active confirmed Problem Lumbosacral spondylosis without myelopathy (85810849) Spondylosis of lumbar region without myelopathy or radiculopathy (M47.816) Active confirmed Problem Localized, primary osteoarthritis of the pelvic region and thigh (318026889) Primary osteoarthritis of right hip (M16.11) Active confirmed Problem Thoracic spondylosis without myelopathy (349826472) Spondylosis of thoracic region without myelopathy or radiculopathy (M47.814) Active confirmed Problem Long-term current use of anticoagulant (134809904) Anticoagulant long-term use (Z79.01) Active confirmed Xarelto Problem Arthralgia of the pelvic region and thigh (040039281) Left hip pain (M25.552) Active confirmed Problem Pain of left knee region (finding) (336435327755706) Left knee pain, unspecified chronicity (M25.562) Active confirmed Problem Acute pain of right knee (M25.561) Active confirmed Problem Arthralgia of the pelvic region and thigh (606288637) Right hip pain (M25.551) Active confirmed Problem Low back pain (225049084) Low back pain, unspecified (M54.50) Active confirmed Vital Signs Temperature 97.4 degrees Fahrenheit 02/17/2025 Respiratory Rate 16 /min 02/17/2025 Oximetry 94 % 02/17/2025 Blood pressure diastolic 67 mm Hg 02/17/2025 Height 64 in 02/17/2025 Blood pressure systolic 134 mm Hg 02/17/2025 Weight 224 lbs 02/17/2025 BMI 38.45 kg/m2 02/17/2025 Encounters Encounter Location Date Provider Diagnosis [facility] [address] [place] [address] 04/18/2024 Rex Herbert Spondylosis without myelopathy or radiculopathy, [...] ; Spinal stenosis, cervical region M48.02 ; Cervicalgia M54.2 ; Neuralgia and neuritis, unspecified M79.2 ; Pelvic and perineal pain R10.2 ; Left hip pain M25.552 ; Trochanteric bursitis, left hip M70.62 ; Spondylosis without myelopathy or radiculopathy, lumbosacral region M47.817 ; Right hip pain M25.551 ; 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 ; Thoracic spine pain M54.6 ; Acute pain of right knee M25.561 ; Primary osteoarthritis of right knee M17.11 ; 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.899 and Anticoagulant long-term use Z79.01 [facility] [address] [place] [address] 06/04/2024 [facility] Hi Spondylosis without myelopathy or radiculopathy, lumbar region [...] osteoarthritis of right knee M17.11 ; Other chcf (current) drug therapy Z79.899 ; Anticoagulant long-term use Z79.01 and Pain in right knee M25.561 [facility] [address] [place] [address] 08/01/2024 Rex Herbert Primary osteoarthrit is of right hip M16.11 ; Cervical radiculopathy M54.12 ; Spondylosis without myelopathy or radiculopathy, lumbar region M47.816 ; Bilateral primary osteoarthritis of knee M17.0 ; Spondylosis without myelopathy or radiculopathy, cervical region M47.812 ; Unilateral primary osteoarthritis, right knee M17.11 ; Primary osteoarthritis of left knee M17.12 ; Other muscle spasm M62.838 ; Muscle [...] osteoarthritis of right knee M17.11 ; Other chcf (current) drug therapy Z79.899 ; Anticoagulant long-term use Z79.01 and Pain in right knee M25.561 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.899 ; Anticoagulant long-term use Z79.01 and Pain in right knee M25.561 [facility] [address] [place] [address] 09/16/2024 Fadia Do Spondylosis without myelopathy or radiculopathy, lumbar region [...] osteoarthritis of right knee M17.11 ; Other chcf (current) drug therapy Z79.899 ; Anticoagulant long-term use Z79.01 and Pain in right knee M25.561 [facility] [address] [place] [address] 10/07/2024 Rex Keon Spondylosis without myelopathy or radiculopathy, lumbar region [...] osteoarthritis of right knee M17.11 ; 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 [address] [facility] [place] [address] 12/11/2024 [facility] Spondylosis without myelopathy or radiculopathy, lumbar region [...] osteoarthritis of right knee M17.11 ; Other chcf (current) drug therapy Z79.899 ; Anticoagulant long-term use Z79.01 and Pain in right knee M25.561 [facility] [address] [place] [address] 01/13/2025 Christel Vargas Spondylosis without myelopathy or radiculopathy, [...] osteoarthritis of right knee M17.11 ; Other chcf (current) drug therapy Z79.899 ; Anticoagulant long-term use Z79.01 and Pain in right knee M25.561 [facility] [address] [place] [address] 02/03/2025 Rex Keon Spondylosis without myelopathy or radiculopathy, lumbar region [...] osteoarthritis of right knee M17.11 ; Other chcf (current) drug therapy Z79.899 ; Anticoagulant long-term use Z79.01 and Pain in right knee M25.561 [facility] [address] [place] [address] 02/17/2025 Christel Dagyte Spondylosis without myelopathy or radiculopathy, lumbar region [...] osteoarthritis of right knee M17.11 ; Other chcf (current) drug therapy Z79.899 ; Anticoagulant long-term use Z79.01 and Pain in right knee M25.561 [facility] [address] [place] [address] 05/14/2024 [facility] [address] [place] [address] 06/17/2024 [facility] [address] [place] [address] 06/19/2024 [facility] [address] [place] [address] 06/23/2024 [facility] [address] [place] [address] 07/28/2024 [facility] Spondylosis without myelopathy or radiculopathy, lumbar region M47.816 [facility] [address] [place] [address] 09/16/2024 [facility] [address] [place] [address] 02/24/2025 Christel Vargas Assessments Encounter Date Diagnosis (ICD Code) Assessment Notes Treatment Notes Treatment Clinical Notes Section Notes 04/18/2024 Spondylosis without myelopathy or radiculopathy, lumbar region (ICD-10 - M47.816) 04/18/2024 Primary osteoarthritis of right hip (ICD-10 - M16.11) 05/01/2024 Spondylosis without myelopathy or radiculopathy, lumbar region (ICD-10 - M47.816) 05/01/2024 Primary osteoarthritis of right hip (ICD-10 - M16.11) Pt returns to clinic for PFU of s/p RFA BL L3-L5 on 04.18.2024 with 80% ongoing pain relief with increased ADL's. Pt is happy with results. Pt had RFA ABN Hip RT on 02.19.2024 which ptstates she is still benefitting. Pt uses lidocaine patches which helps reduce her pain, has refills. The patient will continue with routine follow-up. The patient voiced understanding. The patient was encouraged to stay active. Pt takes no opioids. 06/04/2024 Spondylosis without myelopathy or radiculopathy, lumbar region (ICD-10 - M47.816) 06/04/2024 Primary osteoarthritis of right hip (ICD-10 - M16.11) Pt returns to clinic for PFU of s/p RFA BL L3-L5 on 04.18.2024 with 80% ongoing pain relief with increased ADL's. Pt is happy with results. Pt had RFA ABN Hip RT on 02.19.2024 which pt states she is still benefitting. However, pt states she is having increased Rt knee for the past 6 months. Pt denies any injury. PCP ordered XR of RT knee. Reviewed XR of RT knee with pt, findings below. Pt is open to procedures and would like an IA RT Knee INJ post addressing her neck pain. Pt is not interested in surgery and would like to continue with less invasive interventions. Pt with cervical pain with radiculopathy to BL arms which is c/w H&P and MRI findings. Symptoms are affecting ADLs, ROM, and sleep cycle. Pt previously had JORDON C7-T1 in the past on 08.03.2023 which she benefitted from. PT states she is no longer benefitting and would like to repeat. Discussed JORDON C7-T1 with risks and benefits explained. Pt voiced understanding and would like to proceed as symptoms are interfering with ADLs, ROM, and sleep cycle and not improving with HEP or intake of NSAIDs. Discussed with pt to stop the Xarelto x3 days. Pt voiced understanding. Pt uses lidocaine patches which helps reduce her pain, has refills. The patient will continue with routine follow-up. The patient voiced understanding. The patient was encouraged to stay active. Pt takes no opioids. Plan 1. Repeat JORDON 2. Possibly repeat RFA Cervical 3. Psossible RT kniee IA INJ You are not a candidate for surgery. This means you are not able to or do not wish to have it. The doctor who takes care of your health is aware of your prolonged steroid use. Please add an addendum to recent visit notes before 06/19/24. Thank you 07/28/2024 Spondylosis without myelopathy or radiculopathy, lumbar region (ICD-10 - M47.816) 08/01/2024 Cervical radiculopathy (ICD-10 - M54.12) 08/01/2024 Primary osteoarthritis of right hip (ICD-10 - M16.11) 08/19/2024 Spondylosis without myelopathy or radiculopathy, lumbar region (ICD-10 - M47.816) 08/19/2024 Primary osteoarthritis of right hip (ICD-10 - M16.11) Pt returns to clinic for follow up s/p JORDON C7-T1 with 75% ongoing pain relief with increased ADL's. Pt is happy with the results. Reviewed XR of RT knee with pt last visit, findings below. Pt is open to procedures and would like an IA RT Knee INJ post addressing her low back pain. Pt uses lidocaine patches which helps reduce her pain, has refills. Pt also takes Celebrex. However, discussed with pt this was temporary as she is taking Xarelto. Pt states that the medication greatly reduces her pain and has been on this medication for a long tome. Pt is taking Xarelto 2.5mg BID. Started a trial of Diclofenac gel instead. If unsuccessful will send Celebrex 100mg daily instead of 200mg daily. Will discuss next visit if starting pt back on Celebrex to monitor symptoms such as increased bleeding, nosebleeds, bleeding gums, and unusual bruising then will discontinue. The patient will continue with routine follow-up. The patient voiced understanding. The patient was encouraged to stay active. Pt takes no opioids. Plan 1. Possible repeat RFA BL L3-L5 2. IA RT Knee INJ You are not a candidate for surgery. This means you are not able to or do not wish to have it. The doctor who takes care of your health is aware of your prolonged steroid use. Please add an addendum to recent visit notes before 06/19/24. Thank you 09/16/2024 Spondylosis without myelopathy or radiculopathy, lumbar region (ICD-10 - M47.816) 10/07/2024 Spondylosis without myelopathy or radiculopathy, lumbar region (ICD-10 - M47.816) 10/07/2024 Primary osteoarthritis of right hip (ICD-10 - M16.11) 10/16/2024 Spondylosis without myelopathy or radiculopathy, lumbar region (ICD-10 - M47.816) 12/11/2024 Spondylosis without myelopathy or radiculopathy, lumbar region (ICD-10 - M47.816) 01/13/2025 Spondylosis without myelopathy or radiculopathy, lumbar region (ICD-10 - M47.816) 02/03/2025 Spondylosis without myelopathy or radiculopathy, lumbar region (ICD-10 - M47.816) 02/17/2025 Spondylosis without myelopathy or radiculopathy, lumbar [...] of right hip (ICD-10 - M16.11) 02/03/2025 Primary osteoarthritis of right hip (ICD-10 - M16.11) 02/17/2025 Bilateral primary osteoarthritis of knee (ICD-10 - M17.0) 01/13/2025 Primary osteoarthritis of right hip (ICD-10 - M16.11) The patient returns to the clinic for a follow-up visit for ongoing right hip and low back pain. She reports that the right hip pain is excruciating and worsens when she is sitting and watching TV. The patient states that she previously took Celebrex, which helped reduce her pain; however, it was discontinued after she was started on Xarelto due to potential side effects and medication interactions. We discussed the patient repeating RFA ABN of the RT hip. Symptoms are interfering with ADLs, ROM, and the sleep cycle. The risks and benefits of the procedure were explained to the patient. The patient has agreed to proceed. The patient will continue with routine follow-up. The patient voiced understanding. The patient was encouraged to stay active. Pt takes no opioids. BP is elevated in the office today. The patient is not currently receiving opioid therapy. Treatment Plan: -RFA ABN of the RT Hip -Follow up in 2 weeks 10/16/2024 Primary osteoarthritis of right hip (ICD-10 - M16.11) Pt returns to clinic for follow up s/p RFA BL L3-L5 on 10.07.2024 with 70% ongoing pain relief with increased ADL's. Pt is happy with the results thus far. Reviewed XR of RT knee with pt last visit, findings below. Pt is open to procedures and would like an IA RT Knee INJ post addressing her low back pain. However, pt recently had umbilical sx repair one week ago. Discussed with pt we will wait due to steroid use and post-op healing. Pt states she sees her surgeon for a follow-up on a month. Pt is going to ask when she will be cleared for a procedure and will let us know. Pt uses lidocaine patches which helps reduce her pain, refilled unchanged. Pt also takes Celebrex. However, discussed last visit with pt this was temporary as she is taking Xarelto. Pt states that the medication greatly reduces her pain and has been on this medication for a long tome. Pt is taking Xarelto 2.5mg BID. Started a trial of Diclofenac gel instead last visit. However, her insurance did not cover it. Started Voltaren gel Q12hrs. 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 The patient will continue with routine follow-up. The patient voiced understanding. The patient was encouraged to stay active. Pt takes no opioids. You are not a candidate for surgery. This means you are not able to or do not wish to have it. The doctor who takes care of your health is aware of your prolonged steroid use. Please add an addendum to recent visit notes before 06/19/24. Thank you 12/11/2024 Primary osteoarthritis of right hip (ICD-10 - M16.11) Pt returns to clinic for follow up. Pt had an RFA BL L3-L5 on 10.07.2024 which she states she continues to benefit. She also states she is havin Pt uses lidocaine patches which helps reduce her pain, refilled unchanged. Pt also takes Celebrex. However, discussed last visit with pt this was temporary as she is taking Xarelto. Pt states that the medication greatly reduces her pain and has been on this medication for a long tome. Pt is taking Xarelto 2.5mg BID. Started a trial of Voltaren gel instead last visit. 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 Discussed with pt her Law Secretary will have to prescribe the Celebrex if he is ok with it becuase its contraindicated when taking blood thinners. Pt voiced understanding. The patient will continue with routine follow-up. The patient voiced understanding. The patient was encouraged to stay active. Pt takes no opioids. BP is elevated in the office today. Pt denies systemic symptoms (CP, SOB, lightheaded, N/V, Visual Changes, severe VENEGAS). Discussed close BP monitoring and going to urgent care/ER/PCP if continues to be elevated or systemic symptoms develop. Encouraged follow-up with PCP to discuss the elevated reading from the visit today. You are not a candidate for surgery. This means you are not able to or do not wish to have it. The doctor who takes care of your health is aware of your prolonged steroid use. Please add an addendum to recent visit notes before 06/19/24. Thank you 09/16/2024 Primary osteoarthritis of right hip (ICD-10 - M16.11) Pt returns to clinic for follow up. Pt with both discogenic> facet mediated pain in Cervical Lumbar region which is c/w H&P and MRI findings. Symptoms are affecting ADLs, ROM, and sleep cycle. Pt had RFA RFA BL L3-L5 in the past on 04.18.2024 which she is no longer benefitting and would like to repeat. Reviewed XR of RT knee with pt last visit, findings below. Pt is open to procedures and would like an IA RT Knee INJ post addressing her low back pain. Discussed RFA BL L3-L5 with risks and benefits explained. Pt voiced understanding and would like to proceed as symptoms are interfering with ADLs, ROM, and sleep cycle and not improving with HEP or intake of NSAIDs. Pt states she is having umbilical hernia repair on 09.29.2024. We will hold the Steroid for the RFA procedure. Pt uses lidocaine patches which helps reduce her pain, has refills. Pt also takes Celebrex. However, discussed last visit with pt this was temporary as she is taking Xarelto. Pt states that the medication greatly reduces her pain and has been on this medication for a long tome. Pt is taking Xarelto 2.5mg BID. Started a trial of Diclofenac gel instead. 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 Will discuss next visit if starting pt back on Celebrex to monitor symptoms such as increased bleeding, nosebleeds, bleeding gums, and unusual bruising then will discontinue. The patient will continue with routine follow-up. The patient voiced understanding. The patient was encouraged to stay active. Pt takes no opioids. Plan 1. Possible repeat RFA BL L3-L5 2. IA RT Knee INJ You are not a candidate for surgery. This means you are not able to or do not wish to have it. The doctor who takes care of your health is aware of your prolonged steroid use. Please add an addendum to recent visit notes before 06/19/24. Thank you 10/07/2024 Bilateral primary osteoarthritis of knee (ICD-10 - M17.0) 08/19/2024 Bilateral primary osteoarthritis of knee (ICD-10 - M17.0) 08/01/2024 Spondylosis without myelopathy or radiculopathy, lumbar region (ICD-10 - M47.816) 06/04/2024 Bilateral primary osteoarthritis of knee (ICD-10 - M17.0) 05/01/2024 Bilateral primary osteoarthritis of knee (ICD-10 - M17.0) 04/18/2024 Bilateral primary osteoarthritis of knee (ICD-10 - M17.0) 04/18/2024 Spondylosis without myelopathy or radiculopathy, 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) 05/01/2024 Spondylosis without myelopathy or radiculopathy, 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) 08/01/2024 Bilateral primary osteoarthritis of knee (ICD-10 - M17.0) 06/04/2024 Spondylosis without myelopathy or radiculopathy, 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) 10/07/2024 Spondylosis without myelopathy or radiculopathy, 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) 09/16/2024 Bilateral primary osteoarthritis of knee (ICD-10 - M17.0) 08/19/2024 Spondylosis without myelopathy or radiculopathy, 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) 12/11/2024 Bilateral primary osteoarthritis of knee (ICD-10 - M17.0) 10/16/2024 Bilateral primary osteoarthritis of knee (ICD-10 - M17.0) 02/03/2025 Bilateral primary osteoarthritis of knee (ICD-10 - M17.0) 01/13/2025 Bilateral primary osteoarthritis of knee (ICD-10 - M17.0) 02/17/2025 Spondylosis without myelopathy or radiculopathy, 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) 01/13/2025 Spondylosis without myelopathy or radiculopathy, 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) 02/17/2025 Unilateral primary osteoarthritis, right knee (ICD-10 - M17.11) 02/03/2025 Spondylosis without myelopathy or radiculopathy, 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) 10/16/2024 Spondylosis without myelopathy or radiculopathy, 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) 12/11/2024 Spondylosis without myelopathy or radiculopathy, 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) 09/16/2024 Spondylosis without myelopathy or radiculopathy, 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) 10/07/2024 Unilateral primary osteoarthritis, right knee (ICD-10 - M17.11) 08/01/2024 Spondylosis without myelopathy or radiculopathy, 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) 08/19/2024 Unilateral primary osteoarthritis, right knee (ICD-10 - M17.11) 05/01/2024 Unilateral primary osteoarthritis, right knee (ICD-10 - M17.11) 06/04/2024 Unilateral primary osteoarthritis, right knee (ICD-10 - M17.11) 04/18/2024 Unilateral primary osteoarthritis, right knee (ICD-10 - M17.11) 04/18/2024 Primary osteoarthritis of left knee (ICD-10 - M17.12) 05/01/2024 Primary osteoarthritis of left knee (ICD-10 - M17.12) 08/01/2024 Unilateral primary osteoarthritis, right knee (ICD-10 - M17.11) 06/04/2024 Primary osteoarthritis of left knee (ICD-10 - M17.12) 09/16/2024 Unilateral primary osteoarthritis, right knee (ICD-10 - M17.11) 08/19/2024 Primary osteoarthritis of left knee (ICD-10 - M17.12) 12/11/2024 Unilateral primary osteoarthritis, right knee (ICD-10 - M17.11) 10/16/2024 Unilateral primary osteoarthritis, right knee (ICD-10 - M17.11) 10/07/2024 Primary osteoarthritis of left knee (ICD-10 - M17.12) 01/13/2025 Unilateral primary osteoarthritis, right knee (ICD-10 - M17.11) 02/03/2025 Unilateral primary osteoarthritis, right knee (ICD-10 - M17.11) 02/17/2025 Primary osteoarthritis of left knee (ICD-10 - M17.12) 02/17/2025 Cervical radiculopathy (ICD-10 - M54.12) 01/13/2025 Primary osteoarthritis of left knee (ICD-10 - M17.12) 02/03/2025 Primary osteoarthritis of left knee (ICD-10 - M17.12) 10/07/2024 Cervical radiculopathy (ICD-10 - M54.12) 10/16/2024 Primary osteoarthritis of left knee (ICD-10 - M17.12) 12/11/2024 Primary osteoarthritis of left knee (ICD-10 - M17.12) 08/19/2024 Cervical radiculopathy (ICD-10 - M54.12) 09/16/2024 Primary osteoarthritis of left knee (ICD-10 - M17.12) 06/04/2024 Cervical radiculopathy (ICD-10 - M54.12) 08/01/2024 Primary osteoarthritis of left knee (ICD-10 - M17.12) 05/01/2024 Cervical radiculopathy (ICD-10 - M54.12) 04/18/2024 Cervical radiculopathy (ICD-10 - M54.12) 04/18/2024 Other muscle spasm (ICD-10 - M62.838) 05/01/2024 Other muscle spasm (ICD-10 - M62.838) 08/01/2024 Other muscle spasm (ICD-10 - M62.838) 06/04/2024 Other muscle spasm (ICD-10 - M62.838) 09/16/2024 Cervical radiculopathy (ICD-10 - M54.12) 10/07/2024 Other muscle spasm (ICD-10 - M62.838) 08/19/2024 Other muscle spasm (ICD-10 - M62.838) 12/11/2024 Cervical radiculopathy (ICD-10 - M54.12) 10/16/2024 Cervical radiculopathy (ICD-10 - M54.12) 02/03/2025 Cervical radiculopathy (ICD-10 - M54.12) 01/13/2025 Cervical radiculopathy (ICD-10 - M54.12) 02/17/2025 Other muscle spasm (ICD-10 - M62.838) 02/17/2025 Muscle spasm of back (ICD-10 - M62.830) 01/13/2025 Other muscle spasm (ICD-10 - M62.838) 02/03/2025 Other muscle spasm (ICD-10 - M62.838) 10/16/2024 Other muscle spasm (ICD-10 - M62.838) 12/11/2024 Other muscle spasm (ICD-10 - M62.838) 08/19/2024 Muscle spasm of back (ICD-10 - M62.830) 10/07/2024 Muscle spasm of back (ICD-10 - M62.830) 09/16/2024 Other muscle spasm (ICD-10 - M62.838) 06/04/2024 Muscle spasm of back (ICD-10 - M62.830) 08/01/2024 Muscle spasm of back (ICD-10 - M62.830) 05/01/2024 Muscle spasm of back (ICD-10 - M62.830) 04/18/2024 Muscle spasm of back (ICD-10 - M62.830) 04/18/2024 Left knee pain, unspecified chronicity (ICD-10 - M25.562) 05/01/2024 Left knee pain, unspecified chronicity (ICD-10 - M25.562) 08/01/2024 Left knee pain, unspecified chronicity (ICD-10 - M25.562) 06/04/2024 Left knee pain, unspecified chronicity (ICD-10 - M25.562) 08/19/2024 Left knee pain, unspecified chronicity (ICD-10 - M25.562) 09/16/2024 Muscle spasm of back (ICD-10 - M62.830) 12/11/2024 Muscle spasm of back (ICD-10 - M62.830) 10/16/2024 Muscle spasm of back (ICD-10 - M62.830) 10/07/2024 Left knee pain, unspecified chronicity (ICD-10 - M25.562) 02/03/2025 Muscle spasm of back (ICD-10 - M62.830) 01/13/2025 Muscle spasm of back (ICD-10 - M62.830) 02/17/2025 Left knee pain, unspecified chronicity (ICD-10 - M25.562) 02/17/2025 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) 12/11/2024 Left knee pain, unspecified chronicity (ICD-10 - M25.562) 01/13/2025 Left knee pain, unspecified chronicity (ICD-10 - M25.562) 02/03/2025 Left knee pain, unspecified chronicity (ICD-10 - M25.562) 10/07/2024 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) 10/16/2024 Left knee pain, unspecified chronicity (ICD-10 - M25.562) 08/19/2024 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) 09/16/2024 Left knee pain, unspecified chronicity (ICD-10 - M25.562) 06/04/2024 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) 08/01/2024 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) 05/01/2024 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) 04/18/2024 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) 04/18/2024 Radiculopathy, lumbar region (ICD-10 - M54.16) 05/01/2024 Radiculopathy, lumbar region (ICD-10 - M54.16) 08/01/2024 Radiculopathy, lumbar region (ICD-10 - M54.16) 06/04/2024 Radiculopathy, lumbar region (ICD-10 - M54.16) 10/07/2024 Radiculopathy, lumbar region (ICD-10 - M54.16) 09/16/2024 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) 08/19/2024 Radiculopathy, lumbar region (ICD-10 - M54.16) 10/16/2024 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) 12/11/2024 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) 02/03/2025 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) 01/13/2025 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) 02/17/2025 Radiculopathy, lumbar region (ICD-10 - M54.16) 02/17/2025 Primary osteoarthritis of left hip (ICD-10 - M16.12) 01/13/2025 Radiculopathy, lumbar region (ICD-10 - M54.16) 02/03/2025 Radiculopathy, lumbar region (ICD-10 - M54.16) 12/11/2024 Radiculopathy, lumbar region (ICD-10 - M54.16) 10/07/2024 Primary osteoarthritis of left hip (ICD-10 - M16.12) 10/16/2024 Radiculopathy, lumbar region (ICD-10 - M54.16) 08/19/2024 Primary osteoarthritis of left hip (ICD-10 - M16.12) 09/16/2024 Radiculopathy, lumbar region (ICD-10 - M54.16) 06/04/2024 Primary osteoarthritis of left hip (ICD-10 - M16.12) 08/01/2024 Primary osteoarthritis of left hip (ICD-10 - M16.12) 05/01/2024 Primary osteoarthritis of left hip (ICD-10 - M16.12) 04/18/2024 Primary osteoarthritis of left hip (ICD-10 - M16.12) 04/18/2024 Morbid (severe) obesity due to excess calories (ICD-10 - E66.01) 05/01/2024 Morbid (severe) obesity due to excess calories (ICD-10 - E66.01) 08/19/2024 Morbid (severe) obesity due to excess calories (ICD-10 - E66.01) 06/04/2024 Morbid (severe) obesity due to excess calories (ICD-10 - E66.01) 08/01/2024 Morbid (severe) obesity due to excess calories (ICD-10 - E66.01) 09/16/2024 Primary osteoarthritis of left hip (ICD-10 - M16.12) 10/07/2024 Morbid (severe) obesity due to excess calories (ICD-10 - E66.01) 10/16/2024 Primary osteoarthritis of left hip (ICD-10 - M16.12) 12/11/2024 Primary osteoarthritis of left hip (ICD-10 - M16.12) 02/03/2025 Primary osteoarthritis of left hip (ICD-10 - M16.12) 02/17/2025 Morbid (severe) obesity due to excess calories (ICD-10 - E66.01) 01/13/2025 Primary osteoarthritis of left hip (ICD-10 - M16.12) 01/13/2025 Morbid (severe) obesity due to excess calories (ICD-10 - E66.01) 02/17/2025 Primary osteoarthritis, 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) 02/03/2025 Morbid (severe) obesity due to excess calories (ICD-10 - E66.01) 12/11/2024 Morbid (severe) obesity due to excess calories (ICD-10 - E66.01) 10/16/2024 Morbid (severe) obesity due to excess calories (ICD-10 - E66.01) 10/07/2024 Primary osteoarthritis, 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) 09/16/2024 Morbid (severe) obesity due to excess calories (ICD-10 - E66.01) 08/01/2024 Primary osteoarthritis, 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) 08/19/2024 Primary osteoarthritis, 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) 05/01/2024 Primary osteoarthritis, 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) 06/04/2024 Primary osteoarthritis, 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) 04/18/2024 Primary osteoarthritis, 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) 04/18/2024 Pain in right shoulder (ICD-10 - M25.511) 06/04/2024 Pain in right shoulder (ICD-10 - M25.511) 05/01/2024 Pain in right shoulder (ICD-10 - M25.511) 08/19/2024 Pain in right shoulder (ICD-10 - M25.511) 08/01/2024 Pain in right shoulder (ICD-10 - M25.511) 09/16/2024 Primary osteoarthritis, 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) 10/07/2024 Pain in right shoulder (ICD-10 - M25.511) 10/16/2024 Primary osteoarthritis, 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) 12/11/2024 Primary osteoarthritis, 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) 02/17/2025 Pain in right shoulder (ICD-10 - M25.511) 01/13/2025 Primary osteoarthritis, 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) 02/03/2025 Primary osteoarthritis, 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) 02/03/2025 Pain in right shoulder (ICD-10 - M25.511) 01/13/2025 Pain in right shoulder (ICD-10 - M25.511) 02/17/2025 Sacroiliitis, not elsewhere classified (ICD-10 - M46.1) 12/11/2024 Pain in right shoulder (ICD-10 - M25.511) 10/16/2024 Pain in right shoulder (ICD-10 - M25.511) 10/07/2024 Sacroiliitis, not elsewhere classified (ICD-10 - M46.1) 09/16/2024 Pain in right shoulder (ICD-10 - M25.511) 08/01/2024 Sacroiliitis, not elsewhere classified (ICD-10 - M46.1) 06/04/2024 Sacroiliitis, not elsewhere classified (ICD-10 - M46.1) 08/19/2024 Sacroiliitis, not elsewhere classified (ICD-10 - M46.1) 05/01/2024 Sacroiliitis, not elsewhere classified (ICD-10 - M46.1) 04/18/2024 Sacroiliitis, not elsewhere classified (ICD-10 - M46.1) 04/18/2024 Spinal stenosis, cervical region (ICD-10 - M48.02) 05/01/2024 Spinal stenosis, cervical region (ICD-10 - M48.02) 08/19/2024 Spinal stenosis, cervical region (ICD-10 - M48.02) 08/01/2024 Spinal stenosis, cervical region (ICD-10 - M48.02) 06/04/2024 Spinal stenosis, cervical region (ICD-10 - M48.02) 09/16/2024 Sacroiliitis, not elsewhere classified (ICD-10 - M46.1) 10/07/2024 Spinal stenosis, cervical region (ICD-10 - M48.02) 10/16/2024 Sacroiliitis, not elsewhere classified (ICD-10 - M46.1) 12/11/2024 Sacroiliitis, not elsewhere classified (ICD-10 - M46.1) 02/03/2025 Sacroiliitis, not elsewhere classified (ICD-10 - M46.1) 01/13/2025 Sacroiliitis, not elsewhere classified (ICD-10 - M46.1) 02/17/2025 Spinal stenosis, cervical region (ICD-10 - M48.02) 02/17/2025 Other intervertebral disc degeneration, 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) 01/13/2025 Spinal stenosis, cervical region (ICD-10 - M48.02) 02/03/2025 Spinal stenosis, cervical region (ICD-10 - M48.02) 12/11/2024 Spinal stenosis, cervical region (ICD-10 - M48.02) 10/16/2024 Spinal stenosis, cervical region (ICD-10 - M48.02) 10/07/2024 Other intervertebral disc degeneration, 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) 09/16/2024 Spinal stenosis, cervical region (ICD-10 - M48.02) 06/04/2024 Other intervertebral disc degeneration, 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) 08/01/2024 Other intervertebral disc degeneration, 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) 08/19/2024 Other intervertebral disc degeneration, 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) 05/01/2024 Other intervertebral disc degeneration, 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) 04/18/2024 Cervicalgia (ICD-10 - M54.2) 04/18/2024 Neuralgia and neuritis, unspecified (ICD-10 - M79.2) 05/01/2024 Cervicalgia (ICD-10 - M54.2) 08/01/2024 Cervicalgia (ICD-10 - M54.2) 06/04/2024 Cervicalgia (ICD-10 - M54.2) 09/16/2024 Other intervertebral disc degeneration, 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) 08/19/2024 Cervicalgia (ICD-10 - M54.2) 10/07/2024 Cervicalgia (ICD-10 - M54.2) 10/16/2024 Other intervertebral disc degeneration, 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) 12/11/2024 Other intervertebral disc degeneration, 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) 02/03/2025 Other intervertebral disc degeneration, 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) 01/13/2025 Other intervertebral disc degeneration, 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) 02/17/2025 Cervicalgia (ICD-10 - M54.2) 02/17/2025 Neuralgia and neuritis, unspecified (ICD-10 - M79.2) 01/13/2025 Cervicalgia (ICD-10 - M54.2) 02/03/2025 Cervicalgia (ICD-10 - M54.2) 12/11/2024 Cervicalgia (ICD-10 - M54.2) 10/16/2024 Cervicalgia (ICD-10 - M54.2) 10/07/2024 Neuralgia and neuritis, unspecified (ICD-10 - M79.2) 08/19/2024 Neuralgia and neuritis, unspecified (ICD-10 - M79.2) 09/16/2024 Cervicalgia (ICD-10 - M54.2) 06/04/2024 Neuralgia and neuritis, unspecified (ICD-10 - M79.2) 08/01/2024 Neuralgia and neuritis, unspecified (ICD-10 - M79.2) 05/01/2024 Neuralgia and neuritis, unspecified (ICD-10 - M79.2) 04/18/2024 Pelvic and perineal pain (ICD-10 - R10.2) 05/01/2024 Pelvic and perineal pain (ICD-10 - R10.2) 04/18/2024 Left hip pain (ICD-10 - M25.552) 08/01/2024 Pelvic and perineal pain (ICD-10 - R10.2) 06/04/2024 Pelvic and perineal pain (ICD-10 - R10.2) 08/19/2024 Pelvic and perineal pain (ICD-10 - R10.2) 10/07/2024 Pelvic and perineal pain (ICD-10 - R10.2) 09/16/2024 Neuralgia and neuritis, unspecified (ICD-10 - M79.2) 10/16/2024 Neuralgia and neuritis, unspecified (ICD-10 - M79.2) 12/11/2024 Neuralgia and neuritis, unspecified (ICD-10 - M79.2) 02/03/2025 Neuralgia and neuritis, unspecified (ICD-10 - M79.2) 01/13/2025 Neuralgia and neuritis, unspecified (ICD-10 - M79.2) 02/17/2025 Pelvic and perineal pain (ICD-10 - R10.2) 02/17/2025 Left hip pain (ICD-10 - M25.552) 01/13/2025 Pelvic and perineal pain (ICD-10 - R10.2) 02/03/2025 Pelvic and perineal pain (ICD-10 - R10.2) 12/11/2024 Pelvic and perineal pain (ICD-10 - R10.2) 10/16/2024 Pelvic and perineal pain (ICD-10 - R10.2) 10/07/2024 Left hip pain (ICD-10 - M25.552) 09/16/2024 Pelvic and perineal pain (ICD-10 - R10.2) 08/19/2024 Left hip pain (ICD-10 - M25.552) 06/04/2024 Left hip pain (ICD-10 - M25.552) 08/01/2024 Left hip pain (ICD-10 - M25.552) 05/01/2024 Left hip pain (ICD-10 - M25.552) 04/18/2024 Trochanteric bursitis, left hip (ICD-10 - M70.62) 04/18/2024 Spondylosis without myelopathy or radiculopathy, 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) 05/01/2024 Trochanteric bursitis, left hip (ICD-10 - M70.62) 08/01/2024 Trochanteric bursitis, left hip (ICD-10 - M70.62) 06/04/2024 Trochanteric bursitis, left hip (ICD-10 - M70.62) 08/19/2024 Trochanteric bursitis, left hip (ICD-10 - M70.62) 09/16/2024 Left hip pain (ICD-10 - M25.552) 10/07/2024 Trochanteric bursitis, left hip (ICD-10 - M70.62) 12/11/2024 Left hip pain (ICD-10 - M25.552) 10/16/2024 Left hip pain (ICD-10 - M25.552) 02/03/2025 Left hip pain (ICD-10 - M25.552) 01/13/2025 Left hip pain (ICD-10 - M25.552) 02/17/2025 Trochanteric bursitis, left hip (ICD-10 - M70.62) 02/17/2025 Spondylosis without myelopathy or radiculopathy, 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) 01/13/2025 Trochanteric bursitis, left hip (ICD-10 - M70.62) 02/03/2025 Trochanteric bursitis, left hip (ICD-10 - M70.62) 12/11/2024 Trochanteric bursitis, left hip (ICD-10 - M70.62) 10/16/2024 Trochanteric bursitis, left hip (ICD-10 - M70.62) 10/07/2024 Spondylosis without myelopathy or radiculopathy, 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) 09/16/2024 Trochanteric bursitis, left hip (ICD-10 - M70.62) 06/04/2024 Spondylosis without myelopathy or radiculopathy, 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) 08/01/2024 Spondylosis without myelopathy or radiculopathy, 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) 08/19/2024 Spondylosis without myelopathy or radiculopathy, 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) 05/01/2024 Spondylosis without myelopathy or radiculopathy, 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) 04/18/2024 Right hip pain (ICD-10 - M25.551) 04/18/2024 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) 08/01/2024 Right hip pain (ICD-10 - M25.551) 05/01/2024 Right hip pain (ICD-10 - M25.551) 06/04/2024 Right hip pain (ICD-10 - M25.551) 09/16/2024 Spondylosis without myelopathy or radiculopathy, 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) 08/19/2024 Right hip pain (ICD-10 - M25.551) 10/16/2024 Spondylosis without myelopathy or radiculopathy, 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) 10/07/2024 Right hip pain (ICD-10 - M25.551) 12/11/2024 Spondylosis without myelopathy or radiculopathy, 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) 02/03/2025 Spondylosis without myelopathy or radiculopathy, 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) 01/13/2025 Spondylosis without myelopathy or radiculopathy, 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) 02/17/2025 Right hip pain (ICD-10 - M25.551) 02/17/2025 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) 12/11/2024 Right hip pain (ICD-10 - M25.551) 01/13/2025 Right hip pain (ICD-10 - M25.551) 02/03/2025 Right hip pain (ICD-10 - M25.551) 10/16/2024 Right hip pain (ICD-10 - M25.551) 10/07/2024 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) 08/19/2024 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) 09/16/2024 Right hip pain (ICD-10 - M25.551) 06/04/2024 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) 08/01/2024 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) 04/18/2024 Thoracic spine pain (ICD-10 - M54.6) 05/01/2024 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) 05/01/2024 Thoracic spine pain (ICD-10 - M54.6) 04/18/2024 Acute pain of right knee (ICD-10 - M25.561) 08/01/2024 Thoracic spine pain (ICD-10 - M54.6) 06/04/2024 Thoracic spine pain (ICD-10 - M54.6) 09/16/2024 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) 08/19/2024 Thoracic spine pain (ICD-10 - M54.6) 10/07/2024 Thoracic spine pain (ICD-10 - M54.6) 10/16/2024 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 01/13/2025 Thoracic spine pain (ICD-10 - M54.6) 02/03/2025 Thoracic spine pain (ICD-10 - M54.6) 12/11/2024 Thoracic spine pain (ICD-10 - M54.6) 10/07/2024 Primary osteoarthritis of right knee (ICD-10 - M17.11) 10/16/2024 Thoracic spine pain (ICD-10 - M54.6) 08/19/2024 Primary osteoarthritis of right knee (ICD-10 - M17.11) XR RT Knee Impression: Marked Degenerative change. 09/16/2024 Thoracic spine pain (ICD-10 - M54.6) 06/04/2024 Primary osteoarthritis of right knee (ICD-10 - M17.11) XR RT Knee Impression: Marked Degenerative change. 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 12/11/2024 Primary osteoarthritis of right knee (ICD-10 - M17.11) XR RT Knee Impression: Marked Degenerative change. 02/03/2025 Primary osteoarthritis of right knee (ICD-10 - M17.11) 01/13/2025 Primary osteoarthritis of right knee (ICD-10 - M17.11) XR RT Knee Impression: Marked Degenerative change. 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) 06/04/2024 Anticoagulant long-term use (ICD-10 - Z79.01) Xarelto 08/01/2024 Anticoagulant long-term use (ICD-10 - Z79.01) Xarelto 04/18/2024 Anticoagulant long-term use (ICD-10 - Z79.01) Xarelto 05/01/2024 Other [facility] (current) drug therapy (ICD-10 - Z79.899) 05/01/2024 Anticoagulant long-term use (ICD-10 - Z79.01) Xarelto 06/04/2024 Pain in right knee (ICD-10 - M25.561) 04/18/2024 Other intervertebral disc degeneration, 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) 08/19/2024 Pain in right knee (ICD-10 - M25.561) 08/01/2024 Pain in right knee (ICD-10 - M25.561) 09/16/2024 Anticoagulant long-term use (ICD-10 - Z79.01) Xarelto 10/07/2024 Pain in right knee (ICD-10 - M25.561) 12/11/2024 Anticoagulant long-term use (ICD-10 - Z79.01) Xarelto 10/16/2024 Anticoagulant long-term use (ICD-10 - Z79.01) Xarelto 02/03/2025 Anticoagulant long-term use (ICD-10 - Z79.01) Xarelto 02/17/2025 Pain in right knee (ICD-10 - M25.561) 01/13/2025 Anticoagulant long-term use (ICD-10 - Z79.01) Xarelto 02/03/2025 Pain in right knee (ICD-10 - M25.561) 01/13/2025 Pain in right knee (ICD-10 - M25.561) 12/11/2024 Pain in right knee (ICD-10 - M25.561) 10/16/2024 Pain in right knee (ICD-10 - M25.561) 09/16/2024 Pain in right knee (ICD-10 - M25.561) 05/01/2024 Other The Control Substance Report (PMPR) was [...] as these side effects will be enhanced. 06/04/2024 Other The Control Substance Report (PMPR) was [...] as these side effects will be enhanced. 08/19/2024 Other The Control Substance Report (PMPR) was [...] as these side effects will be enhanced. 09/16/2024 Other The Control Substance Report (PMPR) was [...] as these side effects will be enhanced. 10/16/2024 Other The Control Substance Report (PMPR) was [...] as these side effects will be enhanced. 12/11/2024 Other The Control Substance Report (PMPR) was [...] as these side effects will be enhanced. 01/13/2025 Other The Control Substance Report (PMPR) was [...] as these side effects will be enhanced. 02/17/2025 Other The Control Substance Report (PMPR) [...] effects will be enhanced. Plan Of Treatment Pending Test Test Name Order Date MRI : Knee, left 04/17/2022 MRI : Hip, left 12/03/2017 X ray : Knee, left 02/11/2019 X ray : Knee, right 06/21/2020 X ray : Hip, left 11/12/2017 X ray : Hip, right 08/06/2018 J[facility]ON 11/29/2021 TFESI Lumbar 2 Levels 09/28/2021 Intra-articular Joint Injection, Major J oint 05/24/2022 RFA Cervical 12/28/2021 Primmed Custom LCMS 11/29/2021 Future Test Test Name Order Date Intra-articular Joint Injection, Major J oint 02/18/2018 RFA Cervical 04/15/2018 RFA Lumbar 04/29/2018 TFESI Lumbar 2 Levels 07/08/2018 Intra-articular Joint Injection, Major J oint 08/06/2018 Intra-articular Joint Injection, Major J oint 10/08/2018 RFA Lumbar 10/29/2018 RFA Lumbar 11/20/2018 RFA Cervical 02/11/2019 Knee Injection 02/11/2019 RFA Cervical 02/25/2019 TFESI Cervical 2 Levels 04/14/2019 TFESI Cervical 2 Levels 05/29/2019 RFA Lumbar 07/01/2019 RFA Lumbar 07/23/2019 Intra-articular Joint Injection, Major J oint 09/25/2019 Intra-articular Joint Injection, Major J oint 10/02/2019 RFA Cervical 10/22/2019 Intra-articular Joint Injection, Major J oint 12/04/2019 TFESI Cervical 2 Levels 02/24/2020 RFA Lumbar 03/18/2020 Intra-articular Joint Injection, Major J oint 04/30/2020 RFA Lumbar 05/24/2020 Intra-articular Joint Injection, Major J oint 06/21/2020 RFA Cervical 07/14/2020 RFA Cervical 08/11/2020 Knee Injection 08/11/2020 RFA Lumbar 10/25/2020 RFA Lumbar 11/26/2020 RFA Lumbar 12/22/2020 TFESI Lumbar 2 Levels 03/01/2021 RFA Cervical 04/14/2021 RFA Cervical 05/17/2021 Intra-articular Joint Injection, Major J oint 07/11/2021 RFA Lumbar 08/20/2021 RFA Lumbar 04/03/2022 Intra-articular Joint Injection, Major J oint 04/17/2022 TFESI Cervical 2 Levels 07/06/2022 RFA Cervical 07/13/2022 J[facility]ON 10/16/2022 Intra-articular Joint Injection, Major J oint 11/15/2022 TPI 3 or more Muscles 11/15/2022 Intra-articular Joint Injection, Major J oint 02/07/2023 RFA Cervical 02/07/2023 RFA Lumbar 04/30/2023 JORDON 07/10/2023 Intra-articular Joint Injection, Major J oint 08/10/2023 RFA Cervical 10/02/2023 Hip ABNB 12/25/2023 RFA Hip ABN 01/22/2024 RFA Lumbar 03/04/2024 JORDON 06/04/2024 RFA Hip ABN 01/13/2025 RFA Lumbar 02/17/2025 Insurance Providers Payer Name Payer Address Payer Phone Subscriber Number Group Number Insured Name Patient Relationship to Insured Coverage Start Date Coverage End Date [employer] Medicare PPO [address] [place] [phone] [id number] Emily Calloway Self - patient is the insured 3 [employer] [place] [id number] [id number] Jeff Geronimo Spouse - patient is the spouse of the insured Medications Administered Medication Instructions Date of Administration Dosage Notes Dexamethasone 01/13/2025 10 mg Dexamethasone 1 mg 01/25/2021 10 mg INJ KETOROLAC TROMETHAMINE 15 MG 01/25/2021 60 mg Ketorolac 01/13/2025 30 mg Medical (General) History Medical History History ICD Code hypertension rheumatoid arthritis osteoporosis hypothyroid hyperlipidemia insomnia GERD CAD arthritis chronic pain Surgical History Surgery Date(Month/Year) hysterectomy gallbladder removed open heart surgery tonsillectomy trigger finger release bilateral carpal tunnel release Hospitalization History Reason Date(Month/Year) RIGHT HIP STEROID INJECTION - 60% relief ongoing with increased ADLs 07.26.21 [facility] C7-T1 06.28.21 RFA RT C4-C6; 60% ongoing relief with in creased ADL's 05.31.21 RFA LT C4-C6; 70% ongoing relief with in creased ADL's 05.03.21 TFESI BL L4-L5, L5-S1 75% ongoing relief and increased 03.15.21 RFA RT L3-L5 60% ongoing relief and incr eased adls 01.04.21 RFA LT L3-L5 80% ongoing relief and incr eased adls 09.. RFA LT C4-C6 70% ongoing relief and incr eased adls 6.22. RFA RT C4-C6 60% ongoing relief and incr eased adls 05.07. STEROID RT HIP 75% ongoing relief and in creased adls 04.20. RFA RT L3-L5 70% relief and increased ad ls x 6 months 03.09.21 LT HIP INJECTION 70% ONGOING RELIEF AND INCREASED ADLS 04/2020 RFA LT L3-L5 70% relief and increased re lief x 6 months 01.05.21 JORDON (C7-T1) reporting 80% ongoing relie f and increased adls 02/2020 INTRA ARTICULAR JOIINT INJECTION 50-60% X 2 MONTHS AND IMPROVED ADLS 10.05.20 RFA RT C4-C6 40% PAIN RELIEF AND INCREAS ED ADLS X 7 MONTHS 09.04.20 RT HIP INJECTION 80% ONGOING RELIEF 07.2 8.20 RIGHT HIP INJECTION 50% ongoing relief 0 7.10.20 RFA LT L3-L5 70% relief x 6 months and i ncreased ADL's. 05.12.20 RFA LT L3-L5 70% RELIEF X 6 MONTHS 09. .2018 RFA RT L3-L5 reporting 70% X 11 MONTHS A ND INCREASED ADLS 04.21.20 RFA RT L3-L5 REPORTING 70-80% X 7 MONTHS 10/2018 TFESI BL C5-C6.C6-C7 75% ongoing relief 03.17.20 TFESI BL C5-C6, (C6-C7) , 70% ONGOING RE LIEF 04/19 RFA LT C4-C6 WITH 60% relief and increas ed adls x 2 years 02/2019 RFA LT C4-C6 WITH 80%-90% RELIEF X 10 MO NTHS 03/2018 RFA RT C4-C6 WITH 80-90% RELIEF X 10 MON THS 03/2018 RFA BL L2-L4 REPORTING 80-90% RELIEF X 6 MONTHS 04/2018 RFA RT HIP ABN 70% ongoing pain relief w ith increased ADL's 11.18. RFA BL L3-5 70% ongoing pain relief with increased ADL's 07.. JORDON C7-T1 with 75% ongoing pain relief with increased ADL's 05..2024 RFA BL L3-L5 80% ongoing pain relief wit h increased ADLs ..25 RFA ABN HIP RT 80% ongoing pain relief w ith increased ADL's 12.03.24 RT HIP ABNB 80% pain relief with increas ed ADL's x2 days 10.11.24 RFA BL C4-C6 70% ongoing pain relief wit h increased ADL's 08.19.24 RT HIP INJECTION 80% PAIN RELIEF FOR 3 D AYS WITH INCREASED ADL's 06..24 JORDON C7-T1 70% ongoing pain relief with increased ADL's 05. Hyalgan #5 BL knee- 75% impr ovement of pain in right knee, 50% improvement in left knee 04.30.24 Hyalgan #4 BL knee 04.23.24 Hyalgan #3 BL knee 04.18.24 Hyalgan #2 BL knee 04.10.24 Hyalgan #1 BL knee 04.04.24 RFA BL L3-L5 70% ongoing pain relief wit h increased ADL's 03.05.24 RFA BL C4-C6 70% pain relief for two mon ths WITH INCREASED ADLS 01.09.24 LT Knee Injection with 50% relief and in creased ADLs 10.11.23 RT HIP INJECTION 75% on going relief and increased ADLs 09.15.23 JORDON C7-T1 with 80% relief 08.08.23 RFA BL C4-C6 with 70% pain relief with i ncreased ADLs 05.05.23 LT Knee Injection; 50% x 2 w eeks relief from pain with increased ADLs 3.22.23 RT HIP INJECTION - 60% relief ongoing, i ncreased ADLs 02.14.23 RFA BL L3-L5 - 70% relief ongoing, incre ased ADLs 01.24.23 RFA BL C4-C6 75% relief ongoing with inc reased ADL's 10..22 JORDON C7-T1 60% relief x2 weeks now 0% 9. 22.22 TFESI BL L4-L5, L5-S1 75% relief with in creased ADL's 07..22 RFA BL L3-L5 with increased ADLs x3 week s, now 0% 6..22
== END 2025-03-04 23:59 | disposition home or self-care (01) ==
LOC: LAB.DROPOF 03-16 11:23
PROVIDERS: PCP Nurse Practitioner; Visit Provider Student in an Organized Health Care Education/Training Program
DX: R39.9 Unspecified symptoms and signs involving the genitourinary system (principal)
CPT/HCPCS: 87086